=== PATIENT | female | born 1955 | race Caucasian/White ===

== ENCOUNTER → 2020-04-23 | Outpatient (CLI) | payer OTHER, SELFPAY ==
[2020-04-29 10:40] LABS: HPV APTIMA, High Risk Negative (Negative); HPV Reflexed? YES, CHARGE PATIENT
== END | disposition home or self-care (01) ==
LOC: LABSPEC 16:49
PROVIDERS: Visit Provider Student in an Organized Health Care Education/Training Program
DX: Z12.4 Encounter for screening for malignant neoplasm of cervix (principal)
CPT/HCPCS: 87624; 88175; G0145

== ENCOUNTER 2020-06-03 10:11 | Observation (INO) | payer SELFPAY ==
[2020-05-28 10:21] LABS: Hematocrit 44.8 % (37-47); Hemoglobin 14.3 g/dL (12.0-15.0); Mean Corp Hgb Conc 31.9 g/dL (32-36); Mean Corpuscular Hgb 28.4 pg (27.0-32.0); Mean Corpuscular Volume 89.1 fL (81-99); Platelet Count 198 K/mm3 (150-450); RBC Distribution Width CV 13.9 % (11.6-14.6); RBC Distribution Width SD 45.4 fl (35.1-43.9); Red Blood Count 5.03 M/mm3 (4.2-5.4); White Blood Count 5.2 K/mm3 (4.4-11.0)
--- NOTE | 2020-05-28 12:01 | EKG12_ITS ---
Test Reason : PREOP Blood Pressure : / mmHG Vent. Rate : 068 BPM Atrial Rate : 068 BPM P-R Int : 148 ms QRS Dur : 088 ms QT Int : 382 ms P-R-T Axes : 031 003 024 degrees QTc Int : 406 ms Normal sinus rhythm Normal ECG No previous ECGs available Confirmed by TRAVIS LÓPEZ, RAYMOND ([id number]), senior editor VITO HARDIN ([id number]) on 05/31/2020 11:28:46 AM Referred By: Marti Calderon Confirmed By:RAYMOND ROBLES MD
--- NOTE | 2020-06-01 10:11 | HP.PCM_ITS ---
History and Physical Date of Admission: 06/03/20 Yana Calderon, a 65 year old female 6 0 0 0 6, presents for TVH-BSO , a/p repair, SSLF, cystoscopy. and Possible tvt sling on June 03, 2020 at 7:30. 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 She was seeing Dr. Judi Cardozo at [facility] for a PAP. Unable to obtain good specimen. Referred here for uterine/bladder prolapse. Has urinary incontinence. . Last being a c-sec for breech. Allergy and medication lists added. Health history added. No health issues oth er than arthritis and a gastric ulcer that has been resolved. Mother had H/o breast cancer. Still living. Reports uterine/bladder prolapse which began 1 years ago. Yana claims it started while walking; Yana claims it started while sitting. It is relieved by NONE. Reports bladder leaking with cough or lifting. MEDICATIONS HISTORY: None ALLERGIES: No Known Allergies Medical History: pelvic organ prolapse, hx of gastric ulcer, arthritis FAMILY HISTORY: pancreatic and breast cancers, diabetes MENSTRUAL HISTORY: LMP Known?- Postmenopausal PAST PREGNANCIES: Total Pregnancies - 6; Full Term Pregnancies - 6; Premature - 0; Abortions, Induced - 0; Abortions, Spontaneous - 0; Ectopics - 0; Multiple Births - 0; Living Children - 6 SURGICAL HISTORY: 1. ventral hernia ; Natan Calderon - 2. inguinal hernia ; Natan Calderon - 3. 01/04/1990 Tubal, c-sec ; - breech SOCIAL HISTORY: Alcohol Use - denies drinking Smoking - Never Denies drug use FAMILY HISTORY: pancreatic and breast cancers, diabetes Review of Systems: GENERAL - Denies fever, or chills SKIN - Denies skin changes EYES - Denies visual changes EARS - Denies difficulty hearing NOSE - Denies nasal congestion or bleeding MOUTH - Denies sore throat or difficulty swallowing NECK - Denies pain or swelling RESPIRATORY - Denies shortness of breath or wheezing CARDIOVASCULAR - Denies palpitations or chest pain GASTROINTESTINAL - history of bleeding ulcer, resolved GENITOURINARY - Denies dysuria, frequency of urination, incontinence of urine MUSCULOSKELETAL - arthritis NEUROLOGICAL - Denies localized numbness or weakness PSYCHIATRIC - Denies depression or anxiety ENDOCRINE - Denies heat or cold intolerance, weight loss or gain HEMATO-IMMUNOLOGIC - Denies excesive bleeding with cuts PHYSICAL EXAM BP- 144/88 Sitting, Left arm, large cuff Temp- 98.1 Taken Orally Weight- 232.49165 lbs Height- 65.50 inch BMI:38.13 CONSTITUTIONAL - NAD, well nourished, and well developed SKIN - No rash, lesions, or ulcers HEENT - Normocephalic, PERRLA, EOMI LUNGS - normal respiratory rate and rhythm EXTREMITIES - No edema or calf tenderness. Negative Melody's sign, no erythema or edema. NEUROLOGICAL - Cranial nerves II-XII grossly intact PSYCHIATRIC - A and O to time, place, person, mood and affect External Genitial Vagina - non-tender without lesions Urethra/Urethral Meatus - non-tender Bladder - non-tender Vagina - No atrophy. Grade 3 anterior prolapse, gr 2 apical. Gr 1 posterior. Cervix - without cervical motion tenderness and has normal size and features without evident lesions Uterus - 5-6 cm in size, mobile and nontender Adnexa - clear without masses or tenderness ASSESSMENT/PLAN: 1. Uterovaginal Prolapse, Unspecified Pt experiences pelvic pressure and bulging especially with working all day. Reports some stress symptoms. NO abnormal bleeding. Discussed pessary vs surgical management. Patient is sexually active. Desires surgical management. Plan for: TVH-BSO, SSLF, a/p repair, TVT sling, cystoscopy. R/b/a discussed with patient Discussed left LE pain with ambulating - no signs of VTE on exam, likely msk strain. Also assessed by Dr. Underwood Anesthesia DIscussed Risks include, but are not limited to: risk of bleeding to the point of transfusion, infection, injury to surrounding tissue as bowel or bladder requiring prolonged Hewitt use, VTE, ICU admission. 2. Stress Incontinence Stress symptoms present, worse than urge. Discussed potential for worsening with relief of prolapse. Discussed TVT sling. Desires sling procedure today.
[2020-06-03] VITALS (26 sets, daily range): BP systolic 54–156; BP diastolic 45–99; PULSE 74–100; RESP 14–18; TEMP 36.2–37; O2SAT 88–99; BMI 38.5; BMI 38.9
[2020-06-03] MEDS: Lactated Ringers 1,000 ML 100 ML IV (07:04)
[2020-06-03] MEDS: Cefazolin 2 GM in 0.9% Normal Saline 100 ML IV (07:29)
--- NOTE | 2020-06-03 07:30 | HYST_PTH ---
PATIENT: ROMA BOSCH LOC: MS3 U#:[id number] AGE/SX: 65/F ROOM: MS324 RE06/03/[address]: Dr. Marti Bosch DO : 1955 BED: 1 DIS: 06/04/2020 SPEC #: [id number] RECD: 06/03/20 10:37 STATUS: AARON REQ #: [id number] AUGUSTO: 06/03/20 07:[address]: Marti Bosch DEPT: SURGICAL PATHOLOGY RECD BY: Carmela Brenner ENTERED: 06/03/20 11:41 SP TYPE: HYSTERECT OTHR DR: Dr. Guille Bro MD Tissues: Uterus, NOS Procedures: Surgery Specimen Level V HEADER OPERATION: Vaginal hysterectomy, A & P repair, cysto PRE-OP DIAGNOSIS: Uterovaginal prolapse; stress incontinence TISSUE SUBMITTED: Uterus, cervix, vaginal epithelia MICROSCOPIC DIAGNOSIS Uterus, cervix and vaginal epithelia, vaginal hysterectomy and A & P repair: Cervix - mild chronic cystic cervicitis with tunnel cluster formation. - Hyperkeratosis and parakeratosis. Endometrium - weakly proliferative endometrium with extensive cystic changes. Myometrium - intramural leiomyomas (0.8 and 1 cm in greatest dimension). - Vascular calcifications. Vaginal mucosal tissue - fragments of squamous mucosa with focal mild chronic inflammation. SJ:rafal 06/04/20 MICROSCOPIC DESCRIPTION Slides are reviewed. GROSS DESCRIPTION Received in fixative is one container labeled with the patient's name and designated uterus, cervix and vaginal epithelia. The specimen consists of a hysterectomy specimen consisting of a uterus with cervix and detached pieces of mucosal tissue. The uterus with cervix weighs 87 gm and measures 10 x 5.5 x 4 cm. The serosal surface is beckman, glistening. The ectocervical mucosa is unremarkable. The external os is slit-like in contour. The endocervical canal measures 3.5 cm in length and the endocervical mucosa is beckman, glistening and unremarkable. The triangular endometrial cavity measures 5 cm in length and up to 2.5 cm in width. The endometrium is beckman, glistening without any mass lesion and measures 0.1 cm in thickness. Sections of the uterine wall reveal two nodular masses measuring 0.8 and 1 cm in greatest dimension. Sections of these masses reveal beckman whorled cut surfaces without areas of hemorrhage, necrosis or cystic degeneration. The uninvolved uterine wall measures up to 2 cm in thickness. Also present in the container are five variable sized detached pieces of beckman mucosal tissue measuring in aggregate 5.5 x 4 x 0.4 cm. No mucosal lesion is identified. Dray Driver sections are submitted in eight cassettes as follows: 1 - anterior cervix, 2 - posterior cervix, 3 & 4 - anterior uterine wall, 5 & 6 - posterior uterine wall, 7 - nodular masses, 8 - detached mucosal tissue. / STEVE:rafal 06/03/20 TC:1 CPT: 33287
[2020-06-03] MEDS: Lidocaine 1% /Epi 1:100 (20ml) 20 ML Vial (07:48)
[2020-06-03] MEDS: Estrogens,Conj. 1 Tube 1 DOSE (07:48)
[2020-06-03] MEDS: Lactated Ringers 1,000 ML 125 ML IV ×4 (09:01→22:12)
--- NOTE | 2020-06-03 10:16 | OP.PCM_ITS ---
Report of Operation Date of Procedure: 06/03/20 Pre-Operative Diagnosis: Pelvic organ prolapse, stress incontinence Post-Operative Diagnosis: Pelvic organ prolapse, stress incontinence Surgery/Procedure Performed:: Total vaginal hysterectomy, anterior repair, posterior repair, sacrospinous ligament fixation, cystoscopy. Description of Surgical Findings:: . The 3 anterior prolapse, grade 2 apical prolapse, grade 2 posterior prolapse. Intact bladder epithelium with bilateral ureteral jets on cystoscopy. Normal- appearing external genitalia. audio visual coordinator: George Underwood Type of Anesthesia:: General Specimen's removed: Uterus, cervix. Skin epithelium. Estimated Blood Loss (mL): 300cc Fluids Replaced: 1800cc Description of Procedure: Patient was taken to the operating room and placed under general anesthesia. Patient was placed in the dorsal lithotomy position and prepped and draped in the usual sterile fashion. Hewitt catheter placed. Weighted speculum placed in posterior vagina and cervix grasped with Jerod clamp. Scalpel used to incise at the cervicovaginal junction circumferentially. Further dissection using Jackson scissors was completed. Blunt dissection was also completed. Posterior peritoneum was identified and incised with Jackson scissors. Posterior peritoneum and vaginal epithelium tagged with suture. Long weighted speculum placed through the peritoneal opening. Jeremiah clamps used to grasp the uterosacral ligaments on the left side. Ligament was clamped, cut, transfixation suture was placed. This was repeated on the right side of the uterus. Cardinal ligaments were then clamped cut and tied bilaterally. At this time reflection of bladder was dissected away from the cervix and anterior uterus using Metzenbaum scissors. Anterior peritoneum was then identified and incised with Metzenbaum scissors and extended. Kevon retractor placed to elevate bladder away from anterior uterus. Left uterine arteries were clamped cut and suture-ligated, right uterine arteries were clamped cut and suture-ligated in a similar fashion. Dissection was completed along the lateral sides of the uterus clamped, cutting, suture ligating at each level. The fundus was then noted and the left utero-ovarian ligament was clamped and cut. Free tie was placed, followed by transfixation suture. This was repeated on the right side of the uterus. Tubes and ovaries were unable to be removed as they were high in the pelvic sidewall. Uterus and cervix were removed. Posterior peritoneum was closed in a running stitch. Vaginal cuff was then closed with a running locking stitch. Anterior repair was then completed. Allis clamp were placed above the vaginal cuff and superiorly. Injection was instilled. Incision was made with scalpel between Allis clamps and Metzenbaum scissors were utilized to dissect off the vaginal epithelium. On the left side inferiorly bladder serosa was noted to be exposed. Vaginal fascia was closed in a running fashion over this exposure area. Interrupted stitches were then placed along the defect closing the defect, no stitch placed inferiorly. Excess vaginal epithelium removed with spine scissors. Vagina closed in a running locking stitch. At this time Dr. Underwood perform sacrospinous ligament fixation. Posterior vagina grasped at the hymenal ring with Allis clamps triangular incision made in the perineum. Vaginal epithelium dissected away using Metzenbaum scissors and incised medially. Dissection using Metzenbaum scissors and blunt dissection to peel the vaginal epithelium away from the posterior defect was completed. Right sacrospinous ligament was identified by palpation. Prolene placed through sacrospinous ligament medial to the ischial spine with second suture placed medial to this. He then used a free needle to take Prolene through the vaginal epithelium and back down to attach the ligament to the vaginal apex. Suture was used in interrupted stitches to close the posterior defect these were tied down after the apex of the posterior incision was tagged. Sacrospinous suture tied down as well bring the vaginal apex superiorly. Excess vaginal epithelium removed. Bulbospongiosus muscles identified through dissection with Metzenbaum scissors, got grasped with Allis clamps. Bulbospongiosus muscles reapproximated with [id number] suture. Vaginal epithelium reapproximated running locking stitch. To the level of the hymenal ring. Second stitch was then started at the hymenal ring reapproximating superficial transverse perineal muscles, perineal mucosa approximated with subcuticular stitches. Cystoscopy was then completed with intact bladder dome and bilateral ureteral jets noted. Incisions noted to be hemostatic. Vaginal packing with Premarin cream placed. At the end of the procedure all needle, lap, sponge counts were correct x3. UOP 800cc
[2020-06-03] MEDS: Ketorolac 15 MG/ML Vial IV ×2 (12:37→22:12)
--- NOTE | 2020-06-03 14:20 | NURSING ---
called into room by primary RN. notable amt of drainage and clots underneith pt. primary rn on phone w/ MD. pt cleansed up w/ table cut off saw operator and primary RN. packing noted to be in place. moderate amt active drainage noted.
--- NOTE | 2020-06-03 14:27 | NURSING ---
cortex photo of clots sent to dr. westfall. aware pt denies all symptoms at this time. tele placed on patient by primary RN. monitoring bp
--- NOTE | 2020-06-03 14:51 | NURSING ---
pt dipping to 90% on RA, 2lnc placed. cspo2 maintained
--- NOTE | 2020-06-03 14:55 | NURSING ---
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
--- NOTE | 2020-06-03 15:04 | NURSING ---
noted hr 90's tachy into 110's at time. aware of new order for labs. lab notified.
--- NOTE | 2020-06-03 15:16 | NURSING ---
called placed to AC charge nurse Leah about pt returning to OR. aware she is informing surgery Chg nurse
--- NOTE | 2020-06-03 15:20 | PCM.PN.BLA ---
Progress Note Called by RN for bleeding. Pt seen and examined. She is resting in bed, feeling well. Maybe feels a little different after being on oxygen. Vaginal packing removed, large 100 cc clot at introitus noted. No defects in suture line noted on manual exam. Unable to do complete exam due to patient positioning and lighting. Active bleeding noted, however, likely coming from vaginal apex. Discussed exam under anesthesia in OR with possible repair of vaginal cuff vs packing with expectant management. Patient elects for EUA in OR. R/B/A discussed including, but not limited to: bleeding to the point of transfusion, infection, injury to surrounding tissue. Pt aware. Consents. H/H drawn now. Attempt to contact OR now, class B. STROKE Vital Signs/Narrative: Vital Signs Temp Pulse Resp BP Pulse Ox 06/03/20 14:59 98.4 F 88 16 105/67 97 06/03/20 14:46 98.6 F 83 16 112/72 91 06/03/20 14:28 98.6 F 84 16 116/75 98 06/03/20 12:27 97.5 F L 77 18 132/78 H 98 06/03/20 11:53 97.1 F L 87 16 115/79 93 06/03/20 11:45 76 16 118/78 92 06/03/20 11:30 76 16 120/84 H 92
[2020-06-03 15:30] LABS: Hemoglobin 13.4 g/dL (12.0-15.0)
[2020-06-03] MEDS: Lidocaine 1% (30 ml sdv) 30 ML Vial (16:23)
--- NOTE | 2020-06-03 16:49 | PCM.OPRPT ---
Report of Operation Date of Procedure: 06/03/20 Pre-Operative Diagnosis: Postoperative vaginal bleeding Post-Operative Diagnosis: Postoperative vaginal bleeding Surgery/Procedure Performed:: Exam under anesthesia, posterior vaginal incision reinforcement Description of Surgical Findings:: Small arterial bleed in the posterior repair vaginal incision, small amount of oozing posterior repair suture line Type of Anesthesia:: MAC Estimated Blood Loss (mL): 20 Description of Procedure: 65-year-old female who underwent total vaginal hysterectomy, anterior and posterior repair, sacrospinous ligament fixation, cystoscopy earlier today. This afternoon it was noted that patient was having increased amount of bleeding with blood clots. Patient was examined with noted active bleeding, unable to fully assess due to patient positioning and lighting in the patient room. Due to large amount of clots and bleeding and active oozing, decision for exam under anesthesia and repair of vaginal epithelium was made. All risks, benefits, alternatives discussed with the patient. Risks include but are not limited to: Risk of bleeding to the point of transfusion, infection, injury to surrounding tissue, VTE, ICU admission patient aware and consented. Patient was taken to the operating room placed in the dorsal lithotomy position. Patient prepped and draped in the usual sterile fashion. Retractor placed in the anterior vagina and visualization of the posterior suture line was completed. Small arterial bleeding at the posterior suture line was noted. 2 [id number] stitches were placed in this region with subsequent hemostasis. Small amount of oozing in the posterior repair suture line was noted this was reinforced with running locking stitches. This was hemostatic after suture placement. Inspection of the vaginal cuff and apex was completed with no noted bleeding in this region. Anterior incision line was also hemostatic. Posterior incision line was examined again and was noted to be hemostatic. Lidocaine injected into the perineal area for postoperative pain control. 2 packs of iodoform gauze were placed into the vagina tied together with the knot. Plan for removal in the morning. Maintain Hewitt. At the end of the procedure all needle, lap, sponge counts were correct x3.
[2020-06-04 00:21] VITALS: BP 102/58; PULSE 85; RESP 16; TEMP 37.2; O2SAT 93
[2020-06-04 04:16] VITALS: BP 102/60; PULSE 80; RESP 16; TEMP 37.2; O2SAT 93
[2020-06-04] MEDS: 0.9% Saline Lock 10 ML Syringe IV (05:46)
[2020-06-04 06:15] LABS: Hematocrit 30.2 % (37-47); Hemoglobin 9.6 g/dL (12.0-15.0); Mean Corp Hgb Conc 31.8 g/dL (32-36); Mean Corpuscular Hgb 28.7 pg (27.0-32.0); Mean Corpuscular Volume 90.1 fL (81-99); Mean Platelet Vol. 10.9 fl (6.2-12.0); Platelet Count 190 K/mm3 (150-450); RBC Distribution Width CV 14.4 % (11.6-14.6); RBC Distribution Width SD 47.3 fl (35.1-43.9); Red Blood Count 3.35 M/mm3 (4.2-5.4); White Blood Count 8.6 K/mm3 (4.4-11.0)
[2020-06-04 07:11] VITALS: O2SAT 93
[2020-06-04] MEDS: Multivitamins,Ther W-Minerals Tablet 1 TABLET PO (08:33)
[2020-06-04] MEDS: Enoxaparin 40 MG/0.4 ML Syringe SC (08:33)
--- NOTE | 2020-06-04 08:34 | PCM.PN.OB ---
Subjective: POD#1 Pain controlled. Tolerating PO. No dizziness. - Physical Exam Vitals/I&O's: Vital Signs Temp Pulse Resp BP Pulse Ox 98.9 F 80 16 102/60 93 06/04/20 04:16 06/04/20 04:16 06/04/20 04:16 06/04/20 04:16 06/04/20 07:11 Oxygen Flow Rate (L/min) 2 Oxygen Delivery Method Room Air Weight: 106.141 kg Body Mass Index (BMI) 38.9 Intake and Output for Last 24 Hours 06/02/20 06/03/20 06/04/20 23:59 23:59 23:59 Intake Total 3216.25 / 3216.25 1800 / 1800 Output Total 1550 / 1550 1000 / 1000 Balance 1666.25 / 1666.25 800 / 800 General: Alert, Oriented x3, No apparent distress HEENT: Atraumatic, Normocephalic Neck: Supple Lungs: Clear to auscultation Cardiovascular: Regular rate, Regular Rhythm Abdomen: Bowel Sounds Present, Hypoactive Bowel Sounds Extremities: No edema Neurological: Cranial nerves II-XII grossly intact Psych/Mental Status: Normal Affect, Appropriate Laboratory Results 06/03/20 15:23: Hgb 13.4 06/04/20 06:08: WBC 8.6, RBC 3.35 L, Hgb 9.6 L, Hct 30.2 L, MCV 90.1, MCH 28.7, MCHC 31.8 L, RDW Std Deviation 47.3 H, RDW Coeff of Shavon 14.4, Plt Count 190, MPV 10.9 Current Medications Acetaminophen (Acetaminophen 500 Mg Tablet) 1,000 mg PO Q8H PRN PRN PRN Reason: Pain Score 1-3/10 or Fever Enoxaparin Sodium (Enoxaparin 40 Mg/0.4 Ml Syringe) 40 mg SC DAILY [facility] Last Admin: 06/04/20 08:33 Dose: 40 mg Documented by: Ketorolac Tromethamine (Ketorolac 10 Mg Tablet) 10 mg PO Q6 [facility] Stop: 06/09/20 08:32 Multivitamins/Minerals (Multivitamins,Ther W-Minerals Tablet) 1 tablet PO DAILY@0800 [facility] Last Admin: 06/04/20 08:33 Dose: 1 tablet Documented by: Ondansetron HCl (Ondansetron 4 Mg/2 Ml Vial) 4 mg IV Q4H PRN PRN PRN Reason: NAUSEA Oxycodone HCl (Oxycodone 5 Mg Tablet) 5 - 10 mg PO Q4H PRN PRN PRN Reason: Pain Score 4-10 Sodium Chloride (0.9% Saline Lock 10 Ml Syringe) 10 - 40 ml IV UD PRN PRN Reason: SALINE FLUSH Last Admin: 06/04/20 05:46 Dose: 10 ml Documented by: Medical Necessity - Tobacco Use Smoking Status: Never smoker Assessment/Plan 65 yo POD#1 s/p TVH, anterior/posterior repair, sacrospinous ligament fixation, cystoscopy followed by EUA reinforcement of suture line for post operative bleeding. Complicated by acute blood loss secondary to surgery. Stable 1. Post operative -Acute blood loss secondary to surgery. Iron supplement on discharge. Bleeding post operatively has resolved at this time. -Vaginal packing removed this morning with scant dried blood on it, no current active vaginal bleeding. Hewitt removed as well -Tolerating PO, pain controlled -Plan for observation until this afternoon for bleeding. If patient's bleeding is controlled and she can void, ambulate. Will discharge home this afternoon. Diet: Regular IVFs: HLIV DVT PPx: SCDs, ambulate, lovenox Dispo: likely home this afternoon
[2020-06-04 08:35] VITALS: BP 94/57; PULSE 69; RESP 18; TEMP 37; O2SAT 94
--- NOTE | 2020-06-04 08:38 | DCINST_ITS ---
Discharge Diet: No Restrictions Discharge Activity: Return to Normal Activity, May not drive while taking narcotic pain medications. May resume sexual activity in: 6 weeks Weight Bearing Status: Weight bearing as tolerated Call your doctor if your incision/area has: Continuous Slow Oozing, Sudden Increased Bleeding, Increased Pain/ Swelling Call your doctor if you observe: Fever of 101 or Higher, Inability to have a bowel movement, Using more than one pad per hour, Shortness of breath Cleanse incision/area with: Soap & Water Allergies/Adverse Reactions: Allergies No Known Allergies Allergy (Verified 05/24/20 11:21) Medications to take at Discharge Ascorbic Acid/Elderberry Fruit [Elderberry-Vit C 50-100 mg Chw] 1 ea PO DAILY 05/24/20 Multivit with Calcium,Iron,Min [One Daily Women's] 1 ea PO DAILY 05/24/20 Orders to be completed after discharge: 12 Lead EKG [[facility]] Time Frame: 05/28/20, Location: None Selected Primary Care Physician: Guille Bro MD [Primary Care Provider] - Test Results: Test results from this visit will be discussed in further detail at your follow- up appointment, if applicable. Please Follow Up With: Marti Calderon DO When: 2 weeks Proposed Discharge Date: 06/04/20
== END 2020-06-04 14:09 | disposition home or self-care (01) ==
LOC: SDC 11:25 → MS3 11:25
PROVIDERS: Admitting Provider Student in an Organized Health Care Education/Training Program; PCP Family Medicine; Referring Provider Student in an Organized Health Care Education/Training Program; Visit Provider Student in an Organized Health Care Education/Training Program
PROC: (CPT 58260; principal; 2020-06-03 07:10)
DX: N81.4 Uterovaginal prolapse, unspecified (principal); N39.3 Stress incontinence (female) (male); M19.90 Unspecified osteoarthritis, unspecified site; D25.1 Intramural leiomyoma of uterus; N99.820 Postprocedural hemorrhage of a genitourinary system organ or structure following a genitourinary system procedure; Z20.828 Contact with and (suspected) exposure to other viral communicable diseases; N72 Inflammatory disease of cervix uteri; Z87.11 Personal history of peptic ulcer disease
CPT/HCPCS: 00940; 57200; 57260; 57282; 58260; 36415; 85018; 85027; 86850; 86900; 86901; 87426; 88307; 93005; 96361; 96372; 96374; 96376; 99218; 99251; C9803; J7120; A4216; G0378; G0379; G0463; J2405; Q9968

== ENCOUNTER → 2020-10-29 | Outpatient (CLI) | payer SELFPAY ==
[2020-06-03 15:21] VITALS: BMI 38.9
== END | disposition home or self-care (01) ==
LOC: LABSPEC 17:01
PROVIDERS: PCP Family Medicine; Visit Provider Student in an Organized Health Care Education/Training Program
DX: N39.41 Urge incontinence (principal)
CPT/HCPCS: 87086; 87088

== ENCOUNTER → 2023-03-29 | Outpatient (CLI) | payer MEDICARE, SELFPAY ==
[2023-03-29 10:42] LABS: EXAGEN MAILED SPECIMEN
[2023-03-29 12:01] LABS: Color, Urine Yellow (Yellow); Glucose, Dipstick Normal (Normal); Ketone-Dipstick Negative (Negative); Leukocyte Esterase-Dipstick Negative /ul (Negative); Nitrite-Dipstick Negative (Negative); Occult Blood-Urine Negative /ul (Negative); Protein-Dipstick Negative (Negative); Urine Bilirubin Dipstick Negative (Negative); Urine Clarity Clear (Clear); Urine Urobilinogen Normal (Normal)
[2023-03-29 12:08] LABS: Protein:Creat Ratio 138 mg/g CRE (0-200)
[2023-03-29 12:09] LABS: Absolute Lymphocyte Count 2.21 X10^3/uL (0.83-4.51); Absolute Neutrophil Count 2.8 X10^3/uL (2.0-7.7); Basophil# 0.02 X10^3/uL; Basophil% 0.4 % (0-1); Eosinophil# 0.06 X10^3/uL; Eosinophils% 1.1 % (0-5); Hematocrit 43.4 % (37-47); Lymphocyte # 2.21 X10^3/ul (0.83-4.51); Mean Corp Hgb Conc 32.3 g/dL (32-36); Mean Corpuscular Hgb 28.6 pg (27.0-32.0); Mean Corpuscular Volume 88.8 fL (81-99); Mean Platelet Vol. 11.2 fl (6.2-12.0); Monocyte# 0.52 X10^3/uL; Monocyte% 9.2 % (0-10); NRBC Flagged by Analyzer 0 % (0-5); Neutrophil # 2.84 X10^3/uL (2.7-7.7); Neutrophil % 49.9 % (47-70); Platelet Count 263 K/mm3 (150-450); RBC Distribution Width CV 13.4 % (11.6-14.6); RBC Distribution Width SD 43.6 fl (35.1-43.9); Red Blood Count 4.89 M/mm3 (4.2-5.4); White Blood Count 5.7 K/mm3 (4.4-11.0)
[2023-03-29 12:40] LABS: AST(SGOT) 25 U/L (15-37); Alanine Aminotransfer ALT/SGPT 55 U/L (13-56); Albumin, Serum 3.9 g/dL (3.2-5.0); Alkaline Phosphatase 80 U/L (45-117); Anion Gap 4 (5-15); BUN 14 mg/dL (7-18); BUN/Creat Ratio 20.4 RATIO (10-20); Calcium,Total 9.8 mg/dL (8.5-10.1); Chloride 109 mmol/L (98-107); Creatinine, Serum 0.69 mg/dL (0.55-1.02); EST Glomerular Filtration Rate 90 mL/min (>60); Est Glom Filt Rate - Afr Amer 109 mL/min (>60); Globulin 4.1 g/dL (2.2-4.2); Glucose 102 mg/dL (74-106); Sodium Level 140 mmol/L (136-145)
[2023-03-29 19:19] LABS: Hepatitis B Surface Antibody Non-Reactive; Hepatitis B Surface Antigen Non-Reactive (Nonreactive); Hepatitis C Antibody Non-Reactive (Nonreactive)
== END | disposition home or self-care (01) ==
PROVIDERS: PCP Family Medicine; Referring Provider Internal Medicine Rheumatology; Visit Provider Internal Medicine Rheumatology
DX: M06.4 Inflammatory polyarthropathy (principal); R76.8 Other specified abnormal immunological findings in serum; M17.0 Bilateral primary osteoarthritis of knee
CPT/HCPCS: 36415; 80053; 81002; 82570; 84156; 85025; 86706; 86803; 87340

== ENCOUNTER → 2023-06-07 | Outpatient (CLI) | payer MEDICARE, SELFPAY ==
[2023-06-07 10:16] LABS: Absolute Lymphocyte Count 2.63 X10^3/uL (0.83-4.51); Absolute Neutrophil Count 2.9 X10^3/uL (2.0-7.7); Basophil# 0.01 X10^3/uL; Basophil% 0.2 % (0-1); Eosinophil# 0.09 X10^3/uL; Eosinophils% 1.5 % (0-5); Hematocrit 45.7 % (37-47); Hemoglobin 14.6 g/dL (12.0-15.0); Lymphocyte # 2.63 X10^3/ul (0.83-4.51); Lymphocyte % 42.8 % (19-41); Mean Corp Hgb Conc 31.9 g/dL (32-36); Mean Corpuscular Hgb 28.4 pg (27.0-32.0); Mean Corpuscular Volume 88.9 fL (81-99); Mean Platelet Vol. 11.5 fl (6.2-12.0); Monocyte# 0.48 X10^3/uL; Monocyte% 7.8 % (0-10); NRBC Flagged by Analyzer 0 % (0-5); Neutrophil # 2.92 X10^3/uL (2.7-7.7); Neutrophil % 47.4 % (47-70); Platelet Count 273 K/mm3 (150-450); RBC Distribution Width CV 13.8 % (11.6-14.6); RBC Distribution Width SD 44.9 fl (35.1-43.9); Red Blood Count 5.14 M/mm3 (4.2-5.4); White Blood Count 6.2 K/mm3 (4.4-11.0)
[2023-06-07 10:59] LABS: AST(SGOT) 14 U/L (15-37); Alanine Aminotransfer ALT/SGPT 28 U/L (13-56); Albumin, Serum 3.9 g/dL (3.2-5.0); Alkaline Phosphatase 86 U/L (45-117); Anion Gap 5 (5-15); BUN 14 mg/dL (7-18); Calcium,Total 10.1 mg/dL (8.5-10.1); Chloride 109 mmol/L (98-107); EST Glomerular Filtration Rate 89 mL/min (>60); Est Glom Filt Rate - Afr Amer 107 mL/min (>60); Globulin 3.9 g/dL (2.2-4.2); Glucose 94 mg/dL (74-106); Potassium 4.3 mmol/L (3.5-5.1); Protein, Total 7.8 g/dL (6.4-8.2); Sodium Level 141 mmol/L (136-145)
== END | disposition home or self-care (01) ==
PROVIDERS: Referring Provider Internal Medicine Rheumatology; Visit Provider Internal Medicine Rheumatology
DX: M06.4 Inflammatory polyarthropathy (principal); R76.8 Other specified abnormal immunological findings in serum; Z79.899 Other long term (current) drug therapy
CPT/HCPCS: 36415; 80053; 85025

== ENCOUNTER → 2023-08-23 | Outpatient (CLI) | payer MEDICARE, SELFPAY ==
--- OUTSIDE RECORDS SUMMARY | 2023-08-23 08:30 | XMS RPT_ITS | CCD ---
Author Name Unknown Address [address] [place] [address] Organization [facility] Care Team Providers Care Special Education Aide Name Role Phone GUILLE BRO Consulting Unavailable BCCP Attending Unavailable [facility] Primary Care Unavailable [facility]P Admitting Unavailable PROVIDER, UNKNOWN Consulting Unavailable PROVIDER, UNKNOWN Consulting Unavailable PROVIDER, UNKNOWN Consulting Unavailable Isidoro RITCHIE, Melly Martinez Unavailable [phone] Rheumatolgy Provider Unavailable Unavailable Teresa Aviles LPN Unavailable Guille Bro MD Unavailable Kya Walker MA Unavailable Unavailable Kelsey Hurst Unavailable Unavailable Renay Masterson MA Unavailable Unavailable Kerri CORTEZ, Britni Damon Unavailable Unavaila Keturah Uribe LPN Unavailable Unavailable Unavailable Unavailable Medications Current Medications Medication Drug Class(es) Dates Sig (Normalized) Sig (Original) levothyroxine sodium 0.125 mg oral capsule (1 source) l-Thyroxine Start: 05-24-2023 levothyroxine 125 mcg capsule ; 1 (one) capsule daily for 0 days Quantity: 90 {Capsule} Refills: 0 Ordered: 24-May-2023 ERMA Chaudhry Start: 24-May-2023 Comments: Mail order. Completed/Discontinued Medications Medication Drug Class(es) Dates Sig (Normalized) Sig (Original) atorvastatin 20 mg oral tablet (1 source) HMG-CoA Reductase Inhibitor Start: 04-30-2022 End: 2023 atorvastatin 20 mg tablet ; 1 (one) Tablet daily for 0 days Quantity: 30 {Tablet} Refills: 0 Ordered: 05-Feb-2023 JOY Masterson Start: 30-Apr-2022 End: 05-Feb-2023 Status: Inactive Comments: For delivery Problems Active Problems Problem Classification Problem Date Documented Da te Episodic/Chronic Disorders of lipid metabolism (2 sources) Hyperlipidemia; Translations: [Hyperlipidemia, unspecified] 2023 Chronic Genitourinary symptoms and ill-defined conditions (2 sources) Urinary incontinence; Translations: [Unspecified urinary incontinence] 2023 Chronic Immunizations and screening for infectious disease (2 sources) Anti-nuclear factor positive; Translations: [Other specified abnormal immunological findings in serum] 02-09-2023 Episodic Influenza (2 sources) Influenza; Translations: [Influenza due to unidentified influenza virus with other respiratory manifestations] 04-30-2022 Episodic Other circulatory disease (3 sources) Elevated blood pressure; Translations: [Elevated blood-pressure reading, without diagnosis of hypertension] 2023 Episodic Other connective tissue disease (2 sources) Muscle pain; Translations: [Myalgia, unspecified site] 2023 Episodic Other injuries and conditions due to external causes (2 sources) Knee, leg, ankle, and foot injury 2023 Episodic Other non-traumatic joint disorders (2 sources) Ankle edema; Translations: [Effusion, right ankle] 2023 Episodic Other non-traumatic joint disorders (2 sources) Hip pain; Translations: [Pain in left hip] 2023 Episodic Other non-traumatic joint disorders (2 sources) Multiple joint pain; Translations: [Pain in unspecified joint] 2023 Episodic Other screening for suspected conditions (not mental disorders or infectious disease) (8 sources) Patient encounter status; Translations: [Encounter for screening for cardiovascular disorders] 2023 Episodic Thyroid disorders (7 sources) Hypothyroidism; Translations: [Hypothyroidism, unspecified] 08-19-2023 Chronic Unclassified (1 source) deliveries 2023 Past or Other Problems Problem Classification Problem Date Documented Da te Episodic/Chronic Unclassified (1 source) Leg pain - The leg pain began gradually over time and has been occurring for months. The symptoms have been occurring in an increasing pattern. The symptoms are described as a tightness and ache and are moderate in severity. The symptoms occur during the day. There is involvement of the lower extremities (both), left calf, right calf, left thigh and right thigh. There are no precipitating factors. Aggravating factors include sitting and walking. Relief is provided by cold compress and NSAIDs (Ibuprofen). The symptoms have been associated with muscle weakness and calf swelling, while the symptoms have not been associated with blurred vision, chest pain, dizziness, diaphoresis, dyspnea, fatigue, focal neurologic deficits, paresthesias, numbness and tingling in fingers, numbness and tingling in toes, visual disturbances, cool extremity, cough, fever or chills. There is a family history of diabetes and hypertension. Note for Leg pain : Patient states that my whole body hurts , but that the worst of her pain is in her legs. She denies any fatigue, shortness of breath, or chest pain. She does note swelling in both her legs for the last 2-3 weeks. 2023 Unclassified (1 source) MCR Well Adult - In general the patient feels well with minor complaints (Has been having left-sided hip pain for the past 2 weeks. She has been seeing the chiropractor for this and feels it is improving at this time.), has good energy level and is sleeping well. The patient has a balanced diet and takes supplemental vitamins. The patient exercises daily (morning walks, unable to right now d/t hip pain) and sleeps 6 hours per night. The patient denies having trouble with bathing, dressing/grooming, toileting, preparing meals and ambulating. The patient denies having trouble with grocery shopping, driving, use of telephone, housework, laundry, preparing/taking medications and finances. The patient performs monthly self breast exam. 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 Note for MCR Well Adult : Patient reports that she is feeling well overall.Has labs to be reviewed today.Patient also reports that she has issues with urinary incontinence. She is supposed to see Dr. Marti Bosch for this in May, but has not yet heard from their office. She does not feel the medication they gave her is helping. 04-30-2022 Unclassified (1 source) Cold Symptoms - Symptoms include nasal congestion, ear fullness, sore throat, productive cough (chest discomfort and s.o.b. at times), fever, chills, general malaise, headache and facial pain, but do not include sneezing or runny nose. The onset was sudden 3 day(s) ago. The symptoms occur constantly. The patient describes this as moderate in severity and worsening. Current treatment includes non-prescription cold medication, cough suppressants, acetaminophen and NSAIDs. Risk factors do not include smoking. The patient has been exposed to an individual with similar symptoms. Note for Upper respiratory infection : Pt c/o dizziness on and off. reviewed by [facility] 09-01-2014 Unclassified (1 source) Ankle Injury - Pt here this morning because she was walking on sidewalk and side stepped and fell and injured right ankle. Was able to get up and walk home but painful to walk on it. Ankle is swollen on lateral aspect but complains of pain being mostly in foot. Used ice to area and used some Alleve. Here for evlauation. reviewed by [facility] 11-04-2012 Results Test Name Value Interpretation Reference Range Facil ity Vital Signs Date Time Vital Sign Value Performing Clinician Faci lity 2023 08:08-0400 Diastolic blood pressure 100 mm[Hg] Renay Masterson MA [facility] [employer] [facility]. Encounters Encounter Date Encounter Type Care Provider Facility Start: 08-19-2023 End: 08-20-2023 Orders Melly Chaudhry PA-C Work Phone: [facility]. Start: 05-24-2023 End: 05-24-2023 Medication Melly Cahudhry PA-C Work Phone: [facility]. Start: 05-21-2023 End: 05-21-2023 Orders Melly Chaudhry PA-C Work Phone: [facility]. Start: 02-17-2023 End: 02-17-2023 Medication Melly Chaudhry PA-C Work Phone: [facility]. Start: 02-15-2023 End: 02-15-2023 Orders Melly Chaudhry PA-C Work Phone: [facility]. Start: 02-09-2023 End: 02-09-2023 Orders Melly Chaudhry PA-C Work Phone: [facility]. Start: 2023 End: 2023 Office outpatient visit 25 minutes Melly Chaudhry PA-C Work Phone: [facility]. Start: 11-11-2022 End: 11-11-2022 [facility] Start: 09-25-2022 End: 09-25-2022 Orders Melly Chaudhry PA-C Work Phone: [facility]. Start: 05-05-2022 End: 05-05-2022 Historical Summary Melly Chaudhry PA-C Work Phone: [facility]. Start: 04-30-2022 End: 04-30-2022 Patient encounter procedure Melly Chaudhry PA-C Work Phone: [facility] Start: 04-30-2022 End: 04-30-2022 Physical examination Melly Chaudhry PA-C Work Phone: [facility]; [facility]. Start: 04-23-2022 End: 04-23-2022 Orders Melly Chaudhry PA-C Work Phone: [facility]. Start: 04-10-2022 End: 04-10-2022 Orders Melly Chaudhry PA-C Work Phone: [facility]. Start: 09-01-2014 End: 09-01-2014 Office outpatient visit 15 minutes Melly Chaudhry PA-C Work Phone: [facility] Start: 11-04-2012 End: 11-04-2012 Patient encounter procedure Melly Chaudhry PA-C Work Phone: [facility] Physical examination Renay Masterson MA [facility] Procedures Date Procedure Procedure Detail Performing Clinician Start: 09-25-2022 End: 11-14-2022 Screening mammography bi 2-view breast inc cad Teresa Aviles LPN Work Phone: Start: 04-30-2022 End: 04-30-2022 Adv care pln/ no alt dcsn mkr docd or refusal Melly Chaudhry PA-C Work Phone: Start: 04-30-2022 End: 04-30-2022 Depression screening Melly Chaudhry PA-C Work Phone: Start: 04-30-2022 End: 04-30-2022 Falls risk assessment documented Melly Chaudhry PA-C Work Phone: Start: 04-30-2022 End: 04-30-2022 Initial preventive exam Melly Chaudhry P A-C Work Phone: Start: 04-30-2022 End: 04-30-2022 Pt falls assess docd w/o fall/injury past year Melly J Chaudhry PA-C Work Phone: Start: 04-30-2022 End: 04-30-2022 Scr dep neg, no plan reqd Melly Martinez Chaudhry PA-C Work Phone: Start: 04-30-2022 End: 04-30-2022 Screening test visual acuity quantitative bilat Melly Martinez Chaudhry PA-C Work Phone: Start: 07-05-2019 End: 07-05-2019 Partial hysterectomy Renay Masterson MA Plan of Treatment Date Care Activity Detail Author Start: 08-19-2023 Assay of thyroid stimulating hormone tsh TSH (THYROID STIMULATING HORMONE) (91287) Start: 19-Aug-2023 8:13 Request [facility] Payers Date Payer Category Payer Unknown [id number] Unknown [id number] Unknown [facility] Social History Date Type Detail Facility Tobacco Use: Tobacco Use: ; Never smoker. [facility] Work Phone: Never smoked tobacco [facility].; [facility], [facility]. Work Phone: Summary Purpose Family History No Family History Records Found Father Status:Active Comments:Heart D isease, HTN Advance Directives No Advanced Directives Records FoundNo Advanced Directives Records FoundNo Advanced Directives Records Found Additional Source Comments INFORMATION SOURCE (unrecogn ized section and content) DATE CREATED AUTHOR AUTHOR'S ORGANIZ ATION 11/12/2022 [facility] [place] DATE CREATED AUTHOR AUTHOR'S ORGANIZ ATION 08/22/2023 [facility] FOR RECORDS PERTAINING TO PATIENTS WHO ARE OR HAVE BEEN ENROLLED IN A CHEMICAL DEPENDENCY/SUBSTANCEABUSE PROGRAM, SOME INFORMATION MAY BE OMITTED. This clinical summary was aggregated from multiple sources. Caution should be exercised in using it in the provision of clinical care. This summary normalizes information from multiple sources, and as a consequence, information in this document may materially change the coding, format and clinical context of patient data. In addition, data may be omitted in some cases. CLINICAL DECISIONS SHOULD BE BASED ON THE PRIMARY CLINICAL RECORDS. [facility] provides no warranty or guarantee of the accuracy or completeness of information in this document.
[2023-08-23 08:50] LABS: Absolute Lymphocyte Count 2.03 X10^3/uL (0.83-4.51); Absolute Neutrophil Count 3.9 X10^3/uL (2.0-7.7); Basophil# 0.02 X10^3/uL; Basophil% 0.3 % (0-1); Eosinophil# 0.08 X10^3/uL; Eosinophils% 1.2 % (0-5); Hematocrit 42.3 % (37-47); Hemoglobin 13.8 g/dL (12.0-15.0); Lymphocyte # 2.03 X10^3/ul (0.83-4.51); Lymphocyte % 31.3 % (19-41); Mean Corp Hgb Conc 32.6 g/dL (32-36); Mean Corpuscular Hgb 29.7 pg (27.0-32.0); Mean Platelet Vol. 10.9 fl (6.2-12.0); Monocyte# 0.45 X10^3/uL; Monocyte% 6.9 % (0-10); NRBC Flagged by Analyzer 0 % (0-5); Neutrophil # 3.88 X10^3/uL (2.7-7.7); Neutrophil % 59.8 % (47-70); Platelet Count 263 K/mm3 (150-450); RBC Distribution Width CV 14.6 % (11.6-14.6); RBC Distribution Width SD 47.4 fl (35.1-43.9); Red Blood Count 4.65 M/mm3 (4.2-5.4); White Blood Count 6.5 K/mm3 (4.4-11.0)
[2023-08-23 09:28] LABS: ALB/GLOB Ratio 1.1 RATIO (0.9-2.4); AST(SGOT) 20 U/L (15-37); Alanine Aminotransfer ALT/SGPT 32 U/L (13-56); Alkaline Phosphatase 94 U/L (45-117); Anion Gap 4 (5-15); BUN 13 mg/dL (7-18); BUN/Creat Ratio 18.8 RATIO (10-20); Calcium,Total 9.7 mg/dL (8.5-10.1); Chloride 111 mmol/L (98-107); Creatinine, Serum 0.69 mg/dL (0.55-1.02); EST Glomerular Filtration Rate 90 mL/min (>60); Est Glom Filt Rate - Afr Amer 109 mL/min (>60); Globulin 3.8 g/dL (2.2-4.2); Glucose 109 mg/dL (74-106); Potassium 3.9 mmol/L (3.5-5.1); Protein, Total 7.8 g/dL (6.4-8.2); Sodium Level 140 mmol/L (136-145)
== END | disposition home or self-care (01) ==
PROVIDERS: Referring Provider Internal Medicine Rheumatology; Visit Provider Internal Medicine Rheumatology
DX: M06.4 Inflammatory polyarthropathy (principal); M17.0 Bilateral primary osteoarthritis of knee; R76.8 Other specified abnormal immunological findings in serum; Z79.899 Other long term (current) drug therapy
CPT/HCPCS: 36415; 80053; 85025

== ENCOUNTER → 2023-10-18 | Outpatient (CLI) | payer MEDICARE, SELFPAY ==
[2023-10-18 08:55] LABS: Absolute Lymphocyte Count 2.21 X10^3/uL (0.83-4.51); Absolute Neutrophil Count 3.5 X10^3/uL (2.0-7.7); Basophil# 0.03 X10^3/uL; Basophil% 0.5 % (0-1); Eosinophil# 0.13 X10^3/uL; Hematocrit 44.5 % (37-47); Hemoglobin 14.7 g/dL (12.0-15.0); Lymphocyte # 2.21 X10^3/ul (0.83-4.51); Lymphocyte % 34.7 % (19-41); Mean Corpuscular Hgb 30.9 pg (27.0-32.0); Mean Corpuscular Volume 93.5 fL (81-99); Mean Platelet Vol. 10.4 fl (6.2-12.0); Monocyte# 0.42 X10^3/uL; Monocyte% 6.6 % (0-10); NRBC Flagged by Analyzer 0 % (0-5); Neutrophil # 3.54 X10^3/uL (2.7-7.7); Neutrophil % 55.7 % (47-70); Platelet Count 273 K/mm3 (150-450); RBC Distribution Width SD 50.4 fl (35.1-43.9); Red Blood Count 4.76 M/mm3 (4.2-5.4); White Blood Count 6.4 K/mm3 (4.4-11.0)
[2023-10-18 09:45] LABS: ALB/GLOB Ratio 1.1 RATIO (0.9-2.4); AST(SGOT) 20 U/L (15-37); Alanine Aminotransfer ALT/SGPT 30 U/L (13-56); Albumin, Serum 4.2 g/dL (3.2-5.0); Alkaline Phosphatase 95 U/L (45-117); Anion Gap 5 (5-15); BUN 16 mg/dL (7-18); BUN/Creat Ratio 18.8 RATIO (10-20); Chloride 107 mmol/L (98-107); Creatinine, Serum 0.85 mg/dL (0.55-1.02); EST Glomerular Filtration Rate 71 mL/min (>60); Est Glom Filt Rate - Afr Amer 86 mL/min (>60); Globulin 3.9 g/dL (2.2-4.2); Glucose 81 mg/dL (74-106); Potassium 4.1 mmol/L (3.5-5.1); Protein, Total 8.1 g/dL (6.4-8.2); Sodium Level 140 mmol/L (136-145)
== END | disposition home or self-care (01) ==
LOC: LAB 08:13
PROVIDERS: Referring Provider Internal Medicine Rheumatology; Visit Provider Internal Medicine Rheumatology
DX: M06.4 Inflammatory polyarthropathy (principal); R76.8 Other specified abnormal immunological findings in serum; M17.0 Bilateral primary osteoarthritis of knee; Z79.899 Other long term (current) drug therapy
CPT/HCPCS: 36415; 80053; 85025

== ENCOUNTER → 2023-12-13 | Outpatient (CLI) | payer MEDICARE, SELFPAY ==
[2023-12-13 08:47] LABS: Absolute Lymphocyte Count 2.15 X10^3/uL (0.83-4.51); Absolute Neutrophil Count 4.2 X10^3/uL (2.0-7.7); Basophil# 0.02 X10^3/uL; Basophil% 0.3 % (0-1); Eosinophil# 0.11 X10^3/uL; Eosinophils% 1.6 % (0-5); Hematocrit 40.8 % (37-47); Hemoglobin 13.4 g/dL (12.0-15.0); Lymphocyte # 2.15 X10^3/ul (0.83-4.51); Lymphocyte % 30.4 % (19-41); Mean Corp Hgb Conc 32.8 g/dL (32-36); Mean Corpuscular Hgb 30.9 pg (27.0-32.0); Mean Platelet Vol. 10.3 fl (6.2-12.0); Monocyte# 0.54 X10^3/uL; Monocyte% 7.6 % (0-10); NRBC Flagged by Analyzer 0 % (0-5); Neutrophil % 59.4 % (47-70); Platelet Count 258 K/mm3 (150-450); RBC Distribution Width CV 14.5 % (11.6-14.6); RBC Distribution Width SD 48.8 fl (35.1-43.9); Red Blood Count 4.34 M/mm3 (4.2-5.4); White Blood Count 7.1 K/mm3 (4.4-11.0)
[2023-12-13 09:44] LABS: AST(SGOT) 22 U/L (15-37); Alanine Aminotransfer ALT/SGPT 32 U/L (13-56); Albumin, Serum 3.8 g/dL (3.2-5.0); Alkaline Phosphatase 94 U/L (45-117); Anion Gap 4 (5-15); BUN 16 mg/dL (7-18); BUN/Creat Ratio 22.3 RATIO (10-20); Calcium,Total 9.7 mg/dL (8.5-10.1); Chloride 109 mmol/L (98-107); Creatinine, Serum 0.72 mg/dL (0.55-1.02); EST Glomerular Filtration Rate 86 mL/min (>60); Est Glom Filt Rate - Afr Amer 104 mL/min (>60); Globulin 3.7 g/dL (2.2-4.2); Glucose 94 mg/dL (74-106); Potassium 4.1 mmol/L (3.5-5.1); Protein, Total 7.5 g/dL (6.4-8.2); Sodium Level 138 mmol/L (136-145)
== END | disposition home or self-care (01) ==
LOC: LAB 08:21
PROVIDERS: Visit Provider Internal Medicine Rheumatology
DX: M06.4 Inflammatory polyarthropathy (principal); Z79.899 Other long term (current) drug therapy; R76.8 Other specified abnormal immunological findings in serum; M17.0 Bilateral primary osteoarthritis of knee; M47.897 Other spondylosis, lumbosacral region; M21.41 Flat foot [pes planus] (acquired), right foot; E03.9 Hypothyroidism, unspecified; N39.46 Mixed incontinence; I83.93 Asymptomatic varicose veins of bilateral lower extremities
CPT/HCPCS: 36415; 80053; 85025

== ENCOUNTER → 2024-03-13 | Outpatient (CLI) | payer MEDICARE, SELFPAY ==
[2024-03-13 09:26] LABS: Absolute Lymphocyte Count 2.07 X10^3/uL (0.83-4.51); Absolute Neutrophil Count 3.8 X10^3/uL (2.0-7.7); Basophil# 0.02 X10^3/uL; Basophil% 0.3 % (0-1); Eosinophil# 0.09 X10^3/uL; Eosinophils% 1.4 % (0-5); Hematocrit 43.8 % (37-47); Hemoglobin 14.3 g/dL (12.0-15.0); Lymphocyte # 2.07 X10^3/ul (0.83-4.51); Lymphocyte % 31.7 % (19-41); Mean Corp Hgb Conc 32.6 g/dL (32-36); Mean Corpuscular Hgb 30.9 pg (27.0-32.0); Mean Corpuscular Volume 94.6 fL (81-99); Mean Platelet Vol. 10.6 fl (6.2-12.0); Monocyte# 0.54 X10^3/uL; Monocyte% 8.3 % (0-10); NRBC Flagged by Analyzer 0 % (0-5); Neutrophil # 3.77 X10^3/uL (2.7-7.7); Neutrophil % 57.8 % (47-70); Platelet Count 294 K/mm3 (150-450); RBC Distribution Width CV 14.1 % (11.6-14.6); RBC Distribution Width SD 47.9 fl (35.1-43.9); Red Blood Count 4.63 M/mm3 (4.2-5.4); White Blood Count 6.5 K/mm3 (4.4-11.0)
[2024-03-13 10:00] LABS: AST(SGOT) 18 U/L (15-37); Alanine Aminotransfer ALT/SGPT 35 U/L (13-56); Albumin, Serum 3.9 g/dL (3.2-5.0); Alkaline Phosphatase 93 U/L (45-117); Anion Gap 7 (5-15); BUN 12 mg/dL (7-18); BUN/Creat Ratio 16.6 RATIO (10-20); Calcium,Total 10.1 mg/dL (8.5-10.1); Chloride 106 mmol/L (98-107); Creatinine, Serum 0.72 mg/dL (0.55-1.02); EST Glomerular Filtration Rate 85 mL/min (>60); Est Glom Filt Rate - Afr Amer 102 mL/min (>60); Glucose 92 mg/dL (74-106); Potassium 4.2 mmol/L (3.5-5.1); Protein, Total 7.9 g/dL (6.4-8.2); Sodium Level 141 mmol/L (136-145)
== END | disposition home or self-care (01) ==
LOC: LAB 08:20
PROVIDERS: Referring Provider Internal Medicine Rheumatology; Visit Provider Internal Medicine Rheumatology
DX: M06.4 Inflammatory polyarthropathy (principal); M25.571 Pain in right ankle and joints of right foot; M17.0 Bilateral primary osteoarthritis of knee; R76.8 Other specified abnormal immunological findings in serum
CPT/HCPCS: 36415; 80053; 85025

== ENCOUNTER → 2024-06-05 | Outpatient (CLI) | payer MEDICARE, SELFPAY ==
[2024-06-05 09:33] LABS: Absolute Lymphocyte Count 1.97 X10^3/uL (0.83-4.51); Absolute Neutrophil Count 2.4 X10^3/uL (2.0-7.7); Basophil# 0.04 X10^3/uL; Basophil% 0.8 % (0-1); Eosinophil# 0.06 X10^3/uL; Eosinophils% 1.2 % (0-5); Hematocrit 41.7 % (37-47); Hemoglobin 13.7 g/dL (12.0-15.0); Lymphocyte # 1.97 X10^3/ul (0.83-4.51); Lymphocyte % 40.7 % (19-41); Mean Corp Hgb Conc 32.9 g/dL (32-36); Mean Corpuscular Hgb 30.7 pg (27.0-32.0); Mean Corpuscular Volume 93.5 fL (81-99); Mean Platelet Vol. 10.4 fl (6.2-12.0); Monocyte# 0.31 X10^3/uL; Monocyte% 6.4 % (0-10); NRBC Flagged by Analyzer 0 % (0-5); Neutrophil # 2.43 X10^3/uL (2.7-7.7); Neutrophil % 50.3 % (47-70); Platelet Count 234 K/mm3 (150-450); RBC Distribution Width CV 15.1 % (11.6-14.6); RBC Distribution Width SD 50.7 fl (35.1-43.9); Red Blood Count 4.46 M/mm3 (4.2-5.4); White Blood Count 4.8 K/mm3 (4.4-11.0)
[2024-06-05 09:58] LABS: ALB/GLOB Ratio 1.2 RATIO (0.9-2.4); AST(SGOT) 31 U/L (15-37); Alanine Aminotransfer ALT/SGPT 47 U/L (13-56); Albumin, Serum 4.1 g/dL (3.2-5.0); Alkaline Phosphatase 90 U/L (45-117); Anion Gap 2 (5-15); BUN 12 mg/dL (7-18); BUN/Creat Ratio 16.4 RATIO (10-20); Calcium,Total 9.7 mg/dL (8.5-10.1); Chloride 109 mmol/L (98-107); Creatinine, Serum 0.73 mg/dL (0.55-1.02); EST Glomerular Filtration Rate 84 mL/min (>60); Est Glom Filt Rate - Afr Amer 101 mL/min (>60); Globulin 3.4 g/dL (2.2-4.2); Glucose 93 mg/dL (74-106); Potassium 4.1 mmol/L (3.5-5.1); Protein, Total 7.5 g/dL (6.4-8.2); Sodium Level 140 mmol/L (136-145)
== END | disposition home or self-care (01) ==
LOC: LAB 08:25
PROVIDERS: Referring Provider Internal Medicine Rheumatology; Visit Provider Internal Medicine Rheumatology
DX: M06.4 Inflammatory polyarthropathy (principal); M17.0 Bilateral primary osteoarthritis of knee; R76.8 Other specified abnormal immunological findings in serum
CPT/HCPCS: 36415; 80053; 85025

== ENCOUNTER → 2024-09-01 | Outpatient (CLI) | payer MEDICARE, SELFPAY ==
[2024-09-01 08:30] LABS: Absolute Lymphocyte Count 1.96 X10^3/uL (0.83-4.51); Absolute Neutrophil Count 2.9 X10^3/uL (2.0-7.7); Basophil# 0.02 X10^3/uL; Basophil% 0.4 % (0-1); Eosinophils% 1.8 % (0-5); Hematocrit 40.4 % (37-47); Hemoglobin 13.8 g/dL (12.0-15.0); Lymphocyte # 1.96 X10^3/ul (0.83-4.51); Lymphocyte % 34.6 % (19-41); Mean Corp Hgb Conc 34.2 g/dL (32-36); Mean Corpuscular Hgb 31.8 pg (27.0-32.0); Mean Corpuscular Volume 93.1 fL (81-99); Mean Platelet Vol. 10.4 fl (6.2-12.0); Monocyte# 0.62 X10^3/uL; Monocyte% 10.9 % (0-10); NRBC Flagged by Analyzer 0 % (0-5); Neutrophil # 2.94 X10^3/uL (2.7-7.7); Neutrophil % 51.8 % (47-70); Platelet Count 224 K/mm3 (150-450); RBC Distribution Width SD 49.4 fl (35.1-43.9); Red Blood Count 4.34 M/mm3 (4.2-5.4); White Blood Count 5.7 K/mm3 (4.4-11.0)
[2024-09-01 09:44] LABS: ALB/GLOB Ratio 1.5 RATIO (0.9-2.4); AST(SGOT) 42 U/L (<=31); Alanine Aminotransfer ALT/SGPT 33 U/L (<=34); Albumin, Serum 4.5 g/dL (3.4-4.8); Alkaline Phosphatase 79 U/L (35-104); Anion Gap 12 (5-15); BUN 9 mg/dL (4-19); BUN/Creat Ratio 12.1 RATIO (10-20); Carbon Dioxide 22.2 mmol/L (22.0-29.0); Chloride 104 mmol/L (96-108); Creatinine, Serum 0.78 mg/dL (0.70-1.20); EST Glomerular Filtration Rate 82 (>60); Glucose 99 mg/dL (70-99); Potassium 4.3 mmol/L (3.3-5.1); Protein, Total 7.5 g/dL (5.9-8.4); Sodium Level 138 mmol/L (133-145); Total Bilirubin 0.66 mg/dL (0.00-1.30)
== END | disposition home or self-care (01) ==
LOC: LAB 08:06
PROVIDERS: Referring Provider Internal Medicine Rheumatology; Visit Provider Internal Medicine Rheumatology
DX: M06.4 Inflammatory polyarthropathy (principal); M25.571 Pain in right ankle and joints of right foot; M17.0 Bilateral primary osteoarthritis of knee; R76.8 Other specified abnormal immunological findings in serum
CPT/HCPCS: 36415; 80053; 85025

== ENCOUNTER → 2024-12-15 | Outpatient (CLI) | payer MEDICARE, SELFPAY ==
[2024-12-15 08:37] LABS: Absolute Lymphocyte Count 1.86 X10^3/uL (0.83-4.51); Absolute Neutrophil Count 3.2 X10^3/uL (2.0-7.7); Basophil# 0.02 X10^3/uL; Basophil% 0.4 % (0-1); Eosinophil# 0.06 X10^3/uL; Eosinophils% 1.1 % (0-5); Hematocrit 41.7 % (37-47); Lymphocyte # 1.86 X10^3/ul (0.83-4.51); Lymphocyte % 34.1 % (19-41); Mean Corp Hgb Conc 33.6 g/dL (32-36); Mean Corpuscular Hgb 31.2 pg (27.0-32.0); Mean Corpuscular Volume 92.9 fL (81-99); Mean Platelet Vol. 10.4 fl (6.2-12.0); Monocyte# 0.34 X10^3/uL; Monocyte% 6.2 % (0-10); NRBC Flagged by Analyzer 0 % (0-5); Neutrophil # 3.16 X10^3/uL (2.7-7.7); Neutrophil % 57.8 % (47-70); Platelet Count 260 K/mm3 (150-450); RBC Distribution Width CV 15.5 % (11.6-14.6); RBC Distribution Width SD 51.3 fl (35.1-43.9); Red Blood Count 4.49 M/mm3 (4.2-5.4); White Blood Count 5.5 K/mm3 (4.4-11.0)
--- OUTSIDE RECORDS SUMMARY | 2024-12-15 09:07 | XMS RPT_ITS | CCD ---
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 Field Crop Name Role Phone Phan PAYobaniC, Speedy J Unavailable Phan PA-Yolande, Speedy J Unavailable Rheumatolgy Provider Unavailable Unavailable Teresa Aviles LPN Unavailable Dieudonne LÓPEZ, Guille Casey Unavailable Kya Walker MA Unavailable Unavailable Aris Kelsey C Unavailable Unavailable Renay Masterson MA Unavailable Unavailable Kerri CORTEZ, Britni Damon Unavailable Unavaila Keturah Uribe LPN Unavailable Unavailable Unavailable Unavailable PHAN, SPEEDY PAC Admitting Unavailable PHAN, SPEEDY PAC Attending Unavailable PHAN, SPEEDY PAC Primary Care Unavailable PHAN, SPEEDY PAC Consulting Unavailable PROVIDER, UNKNOWN Consulting Unavailable BCCP Admitting Unavailable BCCP Attending Unavailable BCCP Primary Care Unavailable PHAN, SPEEDY PAC Consulting Unavailable PROVIDER, UNKNOWN Consulting Unavailable BCCP Admitting Unavailable BCCP Attending Unavailable BCCP Primary Care Unavailable PHAN, SPEEYD PAC Consulting Unavailable PROVIDER, UNKNOWN Consulting Unavailable Perez Yesenia Attending Unavailable Phan, Speedy Primary Care Unavailable Vellanki, Yesenia Referring Unavailable Phan, Speedy Primary Care Unavailable Vellanki, Yesenia Attending Unavailable Phan, Speedy Primary Care Unavailable Vellanki, Yesenia Attending Unavailable Vellanki, Yesenia Referring Unavailable Phan, Speedy Primary Care Unavailable Vellanki, Yesenia Attending Unavailable Vellanki, Yesenia Referring Unavailable David Garzaril Attending Unavailable Phan, Speedy Primary Care Unavailable Vellanki, Yesenia Attending Unavailable Phan, Speedy Primary Care Unavailable Vellanki, Yesenia Referring Unavailable Phan PA, Speedy Primary Care Provider [phone] Perez LÓPEZ, Dr. Patterson Attending Provider Perez LÓPEZ, Dr. Patterson Referring Provider Kayla LÓPEZ, Dr. Chopra Attending Provider Medications Current Medications Medication Drug Class(es) Dates Sig (Normalized) Sig (Original) Ascorbic Acid-Elderberry Fruit (4 sources) Start: 05-24-2020 Ascorbic Acid-Elderberry Fruit Active 1 EACH PO DAILY May 24, 2020 12:00am Start: 05-24-2020 Ascorbic Acid- Elderberry Fruit Active 1 EACH PO DAILY May 24, 2020 1:00am Ascorbic Acid-Elderberry Fruit 1 EACH tablet,chewable (1 source) Start: 05-24-2020 take 1 tablet by mouth once daily Ascorbic Acid-Elderberry Fruit 1 EACH tablet,chewable Active 1 NMA PO DAILY May 24, 2020 1:00am folic acid 1 mg oral tablet (12 sources) folic acid 1 mg tablet ; 2 tab once daily (1 mg) levothyroxine sodium 0.112 mg oral tablet (20 sources) l-Thyrox ine Start: 12-17-2023 levothyroxine 112 mc g tablet ; 1 (one) tablet daily for 0 days Quantity: 90 {Tablet} Refills: 0 Ordered: 17-Dec-2023 ERMA Phan Start: 17-Dec-2023 Comments: Mail order. Start: 10-04-2023 levothyroxine 112 mcg tablet ; 1 (one) tablet daily for 0 days Quantity: 90 {Tablet} Refills: 0 Ordered: 05-Oct-2023 ERMA Phan Start: 05-Oct-2023 Comments: Mail order. Start: 08-23-2023 levothyroxine 112 mcg tablet ; 1 (one) tablet daily for 0 days Quantity: 90 {Tablet} Refills: 0 Ordered: 23-Aug-2023 CINTIA Walker Start: 23-Aug-2023 Comments: Mail order. Start: 05-24-2023 levothyroxine 125 mcg capsule ; 1 (one) capsule daily for 0 days Quantity: 90 {Capsule} Refills: 0 Ordered: 24-May-2023 ERMA Phan Start: 24-May-2023 Comments: Mail order. Comment on above: Mail order. methotrexate 2.5 mg oral tablet (12 sources) Folate Analog Metabolic Inhibitor take 1 tablet by mouth every week methotrexate sodium 2.5 mg tablet ; 1 tab by mouth once a week (2.5 mg) Multivitamin Oral Tablet (20 sources) Multivitamin Ora l Tablet Pxtieausunve-Ge-Drva-M inerals (4 sources) Start: 0 Lzqlixuksinq-Nv-Efkk- Minerals Active 1 EACH PO DAILY May 24, 2020 12:00am Start: 05-24-2020 Multivitamin-C v-Fpcs-Qnosverj Active 1 EACH PO DAILY May 24, 2020 1:00am Dnwknbpylebq-Ei-Wqvl-Mineral s 1 EACH tablet (1 source) Start: 05-24-2020 take 1 tablet by mouth once daily Ijgjhybqmdcc-Zw-Kimq-Minerals 1 EACH tablet Active 1 NMA PO DAILY May 24, 2020 1:00am oxybutynin chloride 5 mg ora l tablet (20 sources) Choline rgic Muscari conrado Antagon ist take 1 tablet by mouth twice daily Oxybutynin Chloride 5 MG Oral Tablet ; One tablet two times daily (5 MG) Completed/Discontinued Medications Medication Drug Class(es) Dates Sig (Normalized) Sig (Original) atorvastatin 20 mg oral tablet (20 sources) HMG-CoA Reductase Inhibitor Start: 04-30-2022 End: 2023 atorvastatin 20 mg tablet ; 1 (one) Tablet daily for 0 days Quantity: 30 {Tablet} Refills: 0 Ordered: 05-Feb-2023 CINTIA Masterson Start: 30-Apr-2022 End: 05-Feb-2023 Status: Inactive Comments: For delivery Comment on above: For delivery oxyCODONE hydrochloride 5 mg oral tablet (5 sources) Opioid Agonist Start: 06-04-2020 End: 06-07-2020 take 1 tablet by mouth every four hours as needed for pain Oxycodone 5 MG tablet Discontinued 5 mg PO EVERY 4 HOURS NEEDED as needed for Pain Score 6-10 12 3 June 04, 2020 June 06, 2020 1:00am June 07, 2020 1:03am Problems Active Problems Problem Classification Problem Date Documented Date Episodic/Chronic Disorders of lipid metabolism (20 sources) Hyperlipidemia; Translations: [Hyperlipidemia, unspecified] 2023 Chronic Genitourinary symptoms and ill-defined conditions (20 sources) Urinary incontinence; Translations: [Unspecified urinary incontinence] 2023 Chronic Immunizations and screening for infectious disease (20 sources) Anti-nuclear factor positive; Translations: [Other specified abnormal immunological findings in serum] 02-09-2023 Episodic Influenza (20 sources) Influenza; Translations: [Influenza due to unidentified influenza virus with other respiratory manifestations] 04-30-2022 Episodic Other circulatory disease (20 sources) Elevated blood pressure; Translations: [Elevated blood-pressure reading, without diagnosis of hypertension] 2023 Episodic Other connective tissue disease (20 sources) Muscle pain; Translations: [Myalgia, unspecified site] 2023 Episodic Other injuries and conditions due to external causes (20 sources) Knee, leg, ankle, and foot injury 2023 Episodic Other non-traumatic joint disorders (20 sources) Ankle edema; Translations: [Effusion, right ankle] 2023 Episodic Other non-traumatic joint disorders (20 sources) Hip pain; Translations: [Pain in left hip] 2023 Episodic Other non-traumatic joint disorders (20 sources) Multiple joint pain; Translations: [Pain in unspecified joint] 2023 Episodic Other non-traumatic joint disorders (20 sources) Ankle pain; Translations: [Pain in right ankle and joints of right foot] 09-17-2023 Episodic Other nutritional; endocrine; and metabolic disorders (20 sources) Morbid obesity; Translations: [Morbid (severe) obesity due to excess calories] 12-16-2023 Chronic Other screening for suspected conditions (not mental disorders or infectious disease) (20 sources) Patient encounter status; Translations: [Encounter for screening for cardiovascular disorders] 2023 Episodic Residual codes; unclassified (20 sources) Colon cancer screening declined; Translations: [Procedure and treatment not carried out because of patient's decision for unspecified reasons] 12-16-2023 Episodic Residual codes; unclassified (20 sources) Osteoporosis screening declined; Translations: [Procedure and treatment not carried out because of patient's decision for unspecified reasons] 12-16-2023 Episodic Rheumatoid arthritis and related disease (2 sources) Inflammatory polyarthropathy; Translations: [Inflammatory polyarthropathy] Onset: 09-14-2024 12-16-2023 Chronic Thyroid disorders (20 sources) Hypothyroidism; Translations: [Hypothyroidism, unspecified] 08-19-2023 Chronic Unclassified (20 sources) deliveries 2023 Comment on above: 1. Unclassified (20 sources) Number of Pregnancies 2023 Comment on above: 6. Unclassified (20 sources) Vaginal deliveries 2023 Comment on above: 5. Past or Other Problems Problem Classification Problem Date Documented Da te Episodic/Chronic Unclassified (20 sources) Leg pain - The leg pain began [...] of diabetes and hypertension. Note for Leg pain: Patient states that my whole body hurts, but that the worst of her pain is in her legs. She denies any fatigue, shortness of breath, or chest pain. She does note swelling in both her legs for the last 2-3 weeks. 2023 Unclassified (20 sources) MCR Well Adult - In general the [...] patient does not have Healthcare Power of Broaching Machine Set Up Operator or Living Will. Note for MCR Well Adult: Patient reports that she is feeling well overall.Has labs to be reviewed today.Patient also reports that she has issues with urinary incontinence. She is supposed to see Dr. Marti Bosch for this in May, but has not yet heard from their office. She does not feel the medication they gave her is helping. 04-30-2022 Unclassified (20 sources) Cold Symptoms - Symptoms include nasal congestion, [...] with similar symptoms. Note for Upper respiratory infection: Pt c/o dizziness on and off. reviewed by [facility] 09-01-2014 Unclassified (20 sources) Ankle Injury - Pt here this morning because she was walking on sidewalk and side stepped and fell and injured right ankle. Was able to get up and walk home but painful to walk on it. Ankle is swollen on lateral aspect but complains of pain being mostly in foot. Used ice to area and used some Alleve. Here for evlauation. reviewed by [facility] 11-04-2012 Unclassified (20 sources) Ankle pain - The onset of the ankle pain has been gradual following no specific incident and has been occurring in a persistent pattern for 2 weeks. The course has been constant. The pain is characterized as a moderate to severe (Patient reports that the pain makes it difficult to walk at times.) sharp stabbing (Pt said sometimes has a burning sensation). The pain is in the right ankle and is described as being located in the entire ankle. The pain is aggravated by any movement. Relieving factors include rest, medication (Ibuprofen) and elevation of leg. Note for Ankle pain: Patient has a history of rheumatoid arthritis and is currently taking methotrexate (unsure of the exact dose). 09-17-2023 Unclassified (12 sources) MCR Well Adult - In general the patient feels well with minor complaints (Pt said she is sore and stiff. Patient has inflammatory polyarthritis currently managed by rheumatology. Her next follow up with them is next week.), has good energy level and is sleeping well. The patient has a balanced diet and takes supplemental vitamins. The patient exercises none (Pt said she tries to walk if she can.) and sleeps 8 hours per night. The patient denies having trouble with bathing, dressing/grooming, toileting, preparing meals and ambulating. The patient denies having trouble with grocery shopping, driving, use of telephone, housework, laundry, preparing/taking medications and finances. The patient performs monthly self breast exam. The patient does not have Healthcare Power of Broaching Machine Set Up Operator or Living Will. Note for MCR Well Adult: Patient is requesting an order for a mammogram at this time.She is not fasting today. 12-16-2023 Results Test Name Value Interpretation Reference Range Facility Absolute neutrophil countOrd ered By: Yesenia Todd on 09-01-2024 Neutrophils (Bld) [#/Vol] 2.9 10*3/uL 2.0-7.7 [facility] BUN/creatinine [facility]Ordered By[facility]2024 Urea nitrogen/Creatinine [Mass ratio] 12.1 mg/mg 10-20 [facility] Basophil percentageOrdered B y: Yesenia Todd on 09-01-2024 Basophils/100 WBC (Bld) 0.4 % 0-1 [facility] Bilirubin, totalOrdered By: Yeseniacintia Todd on 09-01-2024 Bilirubin [Mass/Vol] 0.66 mg/dL 0.00-1.30 [facility] CBC W/Diff, Automatedon 08-06 Absolute Lymph 1.96 X10 3/uL Normal 0.83-4.51 [facility] Comment on above: Performed By: #### L 500.4050, L100.0100 #### [facility] [address], [address] Absolute Neut 2.9 X10 3/uL Normal 2.0-7.7 [facility] Comment on above: Performed By: #### L 500.4050, L100.0100 #### [facility] [address] [place], [address] Basophils/100 WBC (Bld) 0.4 % Normal 0-1 [facility] Comment on above: Performed By: #### L 500.4050, L100.0100 #### [facility] [address] [place], [address] Eosinophils/100 WBC (Bld) 1.8 % Normal 0-5 [facility] Comment on above: Performed By: #### L 500.4050, L100.0100 #### [facility] [address] [place], [address] Erythrocyte distribution width (RBC) [Ratio] 15.0 % High 11.6-14.6 [facility] Comment on above: Performed By: #### L 500.4050, L100.0100 #### [facility] [address] [place], [address] Hematocrit (Bld) [Volume fraction] 40.4 % Normal 37-47 [facility] Comment on above: Performed By: #### L 500.4050, L100.0100 #### [facility] [address] [place], [address] Hemoglobin (Bld) [Mass/Vol] 13.8 g/dL Normal 12.0-15.0 [facility] Comment on above: Performed By: #### L 500.4050, L100.0100 #### [facility] [address] [place], [address] IG% 0.500 Normal 0.0-0.9 [facility] Comment on above: Result Comment: IG% - Immature Granulocytes (promyelocytes, myelocytes and metamyelocytes) > 1% indicates that a LEFT SHIFT is Present. Performed By: #### L 500.4050, L100.0100 #### [facility] [address] [place], [address] Lymphocytes/100 WBC (Bld) 34.6 % Normal 19-41 [facility] Comment on above: Performed By: #### L 500.4050, L100.0100 #### [facility] [address] [place], [address] MCH (RBC) [Entitic mass] 31.8 pg Normal 27.0-32.0 [facility] Comment on above: Performed By: #### L [id number], L100.0100 #### [facility] [address] [place], [address] MCHC (RBC) [Mass/Vol] 34.2 g/dL Normal 32-36 [facility] Comment on above: Performed By: #### L 500.4050, L100.0100 #### [facility] [address] [place], [address] MCV (RBC) [Entitic vol] 93.1 fL Normal 81-99 [facility] Comment on above: Performed By: #### L [id number], L100.0100 #### [facility] [address] [place], [address] Monocytes/100 WBC (Bld) 10.9 % High 0-10 [facility] Comment on above: Performed By: #### L 500.4050, L100.0100 #### [facility] [address] [place], [address] Neutrophils/100 WBC (Bld) 51.8 % Normal 47-70 [facility] Comment on above: Performed By: #### L 500.4050, L100.0100 #### [facility] [address] [place], [address] Nucleated RBC (Bld) [#/Vol] 0 10*3/uL Normal 0-5 [facility] Comment on above: Performed By: #### L 500.4050, L100.0100 #### [facility] [address] [place], [address] Platelet mean volume (Bld) [Entitic vol] 10.4 fL Normal 6.2-12.0 [facility] Comment on above: Performed By: #### L 500.4050, L100.0100 #### [facility] [address] [place], [address] Platelets (Bld) [#/Vol] 224 10*3/uL Normal 150-450 [facility] Comment on above: Performed By: #### L 500.4050, L100.0100 #### [facility] [address] [place], [address] RBC (Bld) [#/Vol] 4.34 10*6/uL Normal 4.2-5.[address] [facility] Comment on above: Performed By: #### L 500.4050, L100.0100 #### [facility] [address] [place], [address] RDW SD 49.4 fl High 35.1-43.9 [facility] Comment on above: Performed By: #### L 500.4050, L100.0100 #### [facility] [address] [place], [address] WBC (Bld) [#/Vol] 5.7 10*3/uL Normal 4.4-11.0 [facility] Comment on above: Performed By: #### L 500.4050, L100.0100 #### [facility] [address] [place], [address] Carbon dioxide measurementOr dered By: Yesenia Todd on 09-01-2024 CO2 [Moles/Vol] 22.2 mmol/L 22.0-29.0 [facility] Chloride measurementOrdered By: Yesenia Todd on 09-01-2024 Chloride [Moles/Vol] 104 mmol/L 96-108 [facility] Comprehensive Metabolic Prof ilon 09-01-2024 Albumin [Mass/Vol] 4.5 g/dL Normal 3.4-4.8 [facility] Comment on above: Performed By: #### L 500.4050, L100.0100 #### [facility] [address] [place], [address] Albumin/Globulin [Mass ratio] 1.5 {ratio} Normal 0.9-2.4 [facility] Comment on above: Performed By: #### L 500.4050, L100.0100 #### [facility] [address] [place], [address] ALK PHOS 79 U/L Normal 35-104 [facility] Comment on above: Performed By: #### L 500.4050, L100.0100 #### [facility] [address] [place], [address] ALT [Catalytic activity/Vol] 33 U/L Normal <=34 [facility] Comment on above: Result Comment: Hemo lysis present, Results??could be affected. ?? Performed By: #### L 500.4050, L100.0100 #### [facility] [address] [place], [address] Anion gap [Moles/Vol] 12 mmol/L Normal 5-15 [facility] Comment on above: Performed By: #### L 500.4050, L100.0100 #### [facility] [address] [place], [address] AST [Catalytic activity/Vol] 42 U/L High <=31 [facility] Comment on above: Result Comment: Hemo lysis present, Results??could be affected. ?? Performed By: #### L 500.4050, L100.0100 #### [facility] [address] [place], [address] Bilirubin [Mass/Vol] 0.66 mg/dL Normal 0.00-1.30 [facility] Comment on above: Performed By: #### L 500.4050, L100.0100 #### [facility] [address] [place], [address] BUN/CRE 12.1 RATIO Normal 10-20 [facility] Comment on above: Performed By: #### L 500.4050, L100.0100 #### [facility] [address] [place], [address] Calcium [Mass/Vol] 10.0 mg/dL Normal 7.6-11.0 [facility] Comment on above: Performed By: #### L 500.4050, L100.0100 #### [facility] [address] [place], [address] Chloride [Moles/Vol] 104 mmol/L Normal 96-108 [facility] Comment on above: Performed By: #### L 500.4050, L100.0100 #### [facility] [address] [place], [address] CO2 [Moles/Vol] 22.2 mmol/L Normal 22.0-29.0 [facility] Comment on above: Performed By: #### L 500.4050, L100.0100 #### [facility] [address] [place], [address] Creatinine [Mass/Vol] 0.78 mg/dL Normal 0.70-1.20 [facility] Comment on above: Performed By: #### L 500.4050, L100.0100 #### [facility] [address] [place], [address] GFR/1.73 sq M.predicted among non-blacks MDRD (S/P/Bld) [Vol rate/Area] 82 mL/min/{1.73_m2} Normal >60 [facility] Comment on above: Result Comment: mL/m in/1.73m2 CKD-EPI Creatinine Equation (2020) Performed By: #### L 500.4050, L100.0100 #### [facility] [address] [place], [address] Globulin (S) [Mass/Vol] 3.0 g/dL Normal 2.2-4.2 [facility] Comment on above: Performed By: #### L 500.4050, L100.0100 #### [facility] [address] [place], [address] Glucose [Mass/Vol] 99 mg/dL Normal 70-99 [facility] Comment on above: Performed By: #### L 500.4050, L100.0100 #### [facility] [address] [place], [address] Potassium [Moles/Vol] 4.3 mmol/L Normal 3.3-5.1 [facility] Comment on above: Result Comment: Hemo lysis present, Results??could be affected. ?? Performed By: #### L 500.4050, L100.0100 #### [facility] [address] [place], [address] Sodium [Moles/Vol] 138 mmol/L Normal 133-145 [facility] Comment on above: Performed By: #### L 500.4050, L100.0100 #### [facility] [address] [place], [address] T PROT 7.5 g/dL Normal 5.9-8.4 [facility] Comment on above: Performed By: #### L 500.4050, L100.0100 #### [facility] [address] [place], [address] Urea nitrogen [Mass/Vol] 9 mg/dL Normal 4-19 [facility] Comment on above: Performed By: #### L 500.4050, L100.0100 #### [facility] [address] [place], [address] Eosinophil percentageOrdered By: Yesenia Todd on 09-01-2024 Eosinophils/100 WBC (Bld) 1.8 % 0-5 [facility] Erythrocyte distribution wid th ratioOrdered By: Yesenia Todd on 09-01-2024 Erythrocyte distribution width (RBC) [Ratio] 15.0 % High 11.6-14.6 [facility] Erythrocyte distribution wid th standard deviationOrdered By: Yeseniacintia Todd on 09-01-2024 Erythrocyte distribution width (RBC) [Entitic vol] 49.4 fL High 35.1-43.9 [facility] GFR/1.73 sq M.predicted evelin g non-blacks MDRD (S/P/Bld) [Vol rate/Area]Ordered By: Yesenia Todd on 09-01-2024 Estimated GFR (MDRD) Non-Af Amer 82 >60 [facility] Comment on above: mL/min/1.73m2 CKD-EP I Creatinine Equation (2020) Hematocrit Auto (Bld) [Volum e fraction]Ordered By: Yesenia Todd on 09-01-2024 Hematocrit (Bld) [Volume fraction] 40.4 % 37-47 [facility] Hemoglobin measurementOrdere d By: Yesenia Todd on 09-01-2024 Hemoglobin (Bld) [Mass/Vol] 13.8 g/dL 12.0-15.0 [facility] Immature granulocytes/100 WB C Auto (Bld)Ordered By: Yesenia Todd on 09-01-2024 Immature granulocytes/100 WBC (Bld) 0.500 % 0.0-0.9 [facility] Comment on above: IG% - Immature Granu locytes (promyelocytes, myelocytes and metamyelocytes) > 1% indicates that a LEFT SHIFT is Present. Laboratory - Chemistry and C hemistry - challengeOrdered By: Yesenia Todd on 09-01-2024 AST [Catalytic activity/Vol] 42 U/L High <32 [facility] Comment on above: Hemolysis present, R esults could be affected. Lymphocytes Auto (Unsp spec) [#/Vol]Ordered By: Yesenia Todd on 09-01-2024 Lymphocytes (Bld) [#/Vol] 1.96 10*3/uL 0.83-4.51 [facility] Lymphocytes/100 WBC Auto (Un sp spec)Ordered By: Yesenia Todd on 09-01-2024 Lymphocytes/100 WBC (Bld) 34.6 % 19-41 [facility] MCV (mean corpuscular volume ) determinationOrdered By: Yesenia Todd on 09-01-2024 MCV (RBC) [Entitic vol] 93.1 fL 81-99 [facility] Mean corpuscular hemoglobin (MCH) determinationOrdered By: Yesenia Todd on 09-01-2024 MCH (RBC) [Entitic mass] 31.8 pg 27.0-32.0 [facility] Mean corpuscular hemoglobin concentration (MCHC) determinationOrdered By: Yesenia Todd on 09-01-2024 MCHC (RBC) [Mass/Vol] 34.2 g/dL 32-36 [facility] Mean platelet volume determi nationOrdered By: Yesenia Todd on 09-01-2024 Platelet mean volume (Bld) [Entitic vol] 10.4 fL 6.2-12.0 [facility] Monocyte percentageOrdered B y: Yesenia Todd on 09-01-2024 Monocytes/100 WBC (Bld) 10.9 % High 0-10 [facility] Neutrophil percentageOrdered By: Yesenia Todd on 09-01-2024 Neutrophils/100 WBC (Bld) 51.8 % 47-70 [facility] Nucleated red blood cell per centageOrdered By: Yesenia Todd on 09-01-2024 Nucleated RBC/100 WBC (Bld) [Ratio] 0 % 0-5 [facility] Platelet countOrdered By: Jeremias Todd on 09-01-2024 Platelets (Bld) [#/Vol] 224 10*3/uL 150-450 [facility] RBC Auto (Bld) [#/Vol]Ordere d By: Yesenia Todd on 09-01-2024 RBC (Bld) [#/Vol] 4.34 10*6/uL 4.2-5.[address] [facility] Serum creatinine measurement (mass/volume)Ordered By: Yesenia Todd on 09-01-2024 Creatinine [Mass/Vol] 0.78 mg/dL 0.70-1.20 [facility] Serum globulin measurementOr dered By: Yesenia Todd on 09-01-2024 Globulin (S) [Mass/Vol] 3.0 g/dL 2.2-4.2 [facility] Serum glucose measurement (m ass/volume)Ordered By: Yesenia Todd on 09-01-2024 Glucose [Mass/Vol] 99 mg/dL 70-99 [facility] Serum or plasma alanine hernandez otransferase (ALT) measurementOrdered By: Yesenia Todd on 09-01-2024 ALT [Catalytic activity/Vol] 33 U/L <35 [facility] Comment on above: Hemolysis present, R esults could be affected. Serum or plasma albumin saman urement (mass/volume)Ordered By: Yesenia Todd on 09-01-2024 Albumin [Mass/Vol] 4.5 g/dL 3.4-4.8 [facility] Serum or plasma albumin/glob ulin mass ratioOrdered By: Yesenia Todd on 09-01-2024 Albumin/Globulin [Mass ratio] 1.5 {ratio} 0.9-2.4 [facility] Serum or plasma alkaline nixon sphatase measurementOrdered By: Yesenia Todd on 09-01-2024 ALP [Catalytic activity/Vol] 79 U/L 35-104 [facility] Serum or plasma anion gap de termination (moles/volume)Ordered By: Yesenia Todd on 09-01-2024 Anion gap [Moles/Vol] 12 mmol/L 5-15 [facility] Serum or plasma calcium saman urement (mass/volume)Ordered By: Yesenia Todd on 09-01-2024 Calcium [Mass/Vol] 10.0 mg/dL 7.6-11.0 [facility] Serum or plasma potassium me asurementOrdered By: Yesenia Todd on 09-01-2024 Potassium [Moles/Vol] 4.3 mmol/L 3.3-5.1 [facility] Comment on above: Hemolysis present, R esults could be affected. Serum or plasma sodium measu rement (moles/volume)Ordered By: Yesenia Todd on 09-01-2024 Sodium [Moles/Vol] 138 mmol/L 133-145 [facility] Serum or plasma urea nitroge n measurement (mass/volume)Ordered By: Yesenia Todd on 09-01-2024 Urea nitrogen [Mass/Vol] 9 mg/dL 4-19 [facility] Total proteinOrdered By: Yelena Todd on 09-01-2024 Protein [Mass/Vol] 7.5 g/dL 5.9-8.4 [facility] White blood cell (WBC) count Ordered By: [facility] Perez on 09-01-2024 WBC (Bld) [#/Vol] 5.7 10*3/uL 4.4-11.0 [facility] Foot min 3 Viewson 4 Foot min 3 Views [facility]iology [address] [place] [address] Foot min 3 Views MR#: [id number] Acct: [id number] Name: ROMA BOSCH Rep #: [id number] : [id number] F [id number] From: Mohinder ortiz DO PCP: JEREMIAS Garcia Status: DEP AMB Study: Foot min 3 Views Date of Exam: 06/14/24 Exam# [id number] Ordering Dr: Dawna Espinoza DPM [id number] EXAM: XR RIGHT FOOT COMPLETE, 3 OR MORE VIEWS CLINICAL INDICATION: PAIN -- STANDING TECHNIQUE: Frontal, lateral and oblique views of the right foot. COMPARISON: No relevant prior studies available. FINDINGS: BONES/JOINTS: Calcaneal spurs. Pes planus. Dorsal midfoot spurring. Mild first metatarsophalangeal joint arthrosis. No acute fracture. No subluxation. Normal alignment. No sclerotic or destructive changes observed. SOFT TISSUES: No significant abnormality. No soft tissue swelling or gas. No radiopaque foreign body. RAD/Foot min 3 Views IMPRESSION: Pes planus and degenerative changes. No acute osseous findings. Electronically Signed: Mohinder Amin, DO at 23:23 EST , CC: JAIDA Espinoza; JEREMIAS Garcia Nephrologist: Signed Normal [facility] Absolute neutrophil countOrd ered By: Yesenia Todd on 06-05-2024 Neutrophils (Bld) [#/Vol] 2.4 10*3/uL 2.0-7.7 [facility] Albumin to globulin ratioOrd ered By: Yesenia Todd on 06-05-2024 Albumin/Globulin [Mass ratio] 1.2 {ratio} 0.9-2.4 [facility] Basophil percentageOrdered B y: Yesenia Todd on 06-05-2024 Basophils/100 WBC (Bld) 0.8 % 0-1 [facility] Bilirubin, totalOrdered By: Yesenia Todd on 06-05-2024 Bilirubin [Mass/Vol] 0.80 mg/dL 0.20-1.00 [facility] Comment on above: For patients on eltr ombopag therapy, use of Dimension Langel[place] TBIL is not recommended. Blood urea nitrogen (BUN)/cr eatinine ratioOrdered By: Yesenia Todd on 06-05-2024 Urea nitrogen/Creatinine [Mass ratio] 16.4 mg/mg 10-20 [facility] CBC W/Diff, Automatedon 12- Absolute Lymph 1.97 X10 3/uL Normal 0.83-4.51 [facility] Comment on above: Performed By: #### L 500.4050, L100.0100 #### [facility] [address] [place], [place], [id number] Absolute Neut 2.4 X10 3/uL Normal 2.0-7.7 [facility] Comment on above: Performed By: #### L 500.4050, L100.0100 #### [facility] [address] [place], [address] Basophils/100 WBC (Bld) 0.8 % Normal 0-1 [facility] Comment on above: Performed By: #### L 500.4050, L100.0100 #### [facility] [address] [place], [address] Eosinophils/100 WBC (Bld) 1.2 % Normal 0-5 [facility] Comment on above: Performed By: #### L 500.4050, L100.0100 #### [facility] [address] [place], [address] Erythrocyte distribution width (RBC) [Ratio] 15.1 % High 11.6-14.6 [facility] Comment on above: Performed By: #### L 500.4050, L100.0100 #### [facility] [address] [place], [address] Hematocrit (Bld) [Volume fraction] 41.7 % Normal 37-47 [facility] Comment on above: Performed By: #### L 500.4050, L100.0100 #### [facility] [address] [place], [address] Hemoglobin (Bld) [Mass/Vol] 13.7 g/dL Normal 12.0-15.0 [facility] Comment on above: Performed By: #### L 500.4050, L100.0100 #### [facility] [address] [place], [address] IG% 0.600 Normal 0.0-0.9 [facility] Comment on above: Result Comment: IG% - Immature Granulocytes (promyelocytes, myelocytes and metamyelocytes) > 1% indicates that a LEFT SHIFT is Present. Performed By: #### L 500.4050, L100.0100 #### [facility] [address] [place], [address] Lymphocytes/100 WBC (Bld) 40.7 % Normal 19-41 [facility] Comment on above: Performed By: #### L 500.4050, L100.0100 #### [facility] [address] [place], [address] MCH (RBC) [Entitic mass] 30.7 pg Normal 27.0-32.0 [facility] Comment on above: Performed By: #### L 500.4050, L100.0100 #### [facility] [address] [place], [address] MCHC (RBC) [Mass/Vol] 32.9 g/dL Normal 32-36 [facility] Comment on above: Performed By: #### L 500.4050, L100.0100 #### [facility] [address] [place], [address] MCV (RBC) [Entitic vol] 93.5 fL Normal 81-99 [facility] Comment on above: Performed By: #### L 500.4050, L100.0100 #### [facility] [address] [place], [address] Monocytes/100 WBC (Bld) 6.4 % Normal 0-10 [facility] Comment on above: Performed By: #### L 500.4050, L100.0100 #### [facility] [address] [place], [address] Neutrophils/100 WBC (Bld) 50.3 % Normal 47-70 [facility] Comment on above: Performed By: #### L 500.4050, L100.0100 #### [facility] [address] [place], [address] Nucleated RBC (Bld) [#/Vol] 0 10*3/uL Normal 0-5 [facility] Comment on above: Performed By: #### L 500.4050, L100.0100 #### [facility] [address] [place], [address] Platelet mean volume (Bld) [Entitic vol] 10.4 fL Normal 6.2-12.0 [facility] Comment on above: Performed By: #### L 500.4050, L100.0100 #### [facility] [address] [place], [address] Platelets (Bld) [#/Vol] 234 10*3/uL Normal 150-450 [facility] Comment on above: Performed By: #### L 500.4050, L100.0100 #### [facility] [address] [place], [address] RBC (Bld) [#/Vol] 4.46 10*6/uL Normal 4.2-5.[address] [facility] Comment on above: Performed By: #### L 500.4050, L100.0100 #### [facility] [address] [place], [address] RDW SD 50.7 fl High 35.1-43.9 [facility] Comment on above: Performed By: #### L 500.4050, L100.0100 #### [facility] [address] [place], [address] WBC (Bld) [#/Vol] 4.8 10*3/uL Normal 4.4-11.0 [facility] Comment on above: Performed By: #### L 500.4050, L100.0100 #### [facility] [address] [place], [address] Carbon dioxide measurementOr dered By: Yesenia Todd on 06-05-2024 CO2 [Moles/Vol] 29.0 mmol/L 21.0-32.0 [facility] Chloride measurementOrdered By: Yesenia Todd on 06-05-2024 Chloride [Moles/Vol] 109 mmol/L High 98-107 [facility] Comprehensive Metabolic Prof ilon 06-05-2024 Albumin [Mass/Vol] 4.1 g/dL Normal 3.2-5.0 [facility] Comment on above: Performed By: #### L 500.4050, L100.0100 #### [facility] [address] [place], [address] Albumin/Globulin [Mass ratio] 1.2 {ratio} Normal 0.9-2.4 [facility] Comment on above: Performed By: #### L 500.4050, L100.0100 #### [facility] [address] [place], [address] ALK P 90 U/L Normal 45-117 [facility] Comment on above: Performed By: #### L 500.4050, L100.0100 #### [facility] [address] [place], [address] ALT [Catalytic activity/Vol] 47 U/L Normal 13-56 [facility] Comment on above: Performed By: #### L 500.4050, L100.0100 #### [facility] [address] [place], [address] AST [Catalytic activity/Vol] 31 U/L Normal 15-37 [facility] Comment on above: Performed By: #### L 500.4050, L100.0100 #### [facility] [address] [place], [address] Bilirubin [Mass/Vol] 0.80 mg/dL Normal 0.20-1.00 [facility] Comment on above: Result Comment: For patients on eltrombopag therapy, use of Dimension Langeloth TBIL is not recommended. Performed By: #### L 500.4050, L100.0100 #### [facility] [address] [place], [address] BUN/CRE 16.4 RATIO Normal 10-20 [facility] Comment on above: Performed By: #### L 500.4050, L100.0100 #### [facility] [address] [place], [address] CA,Total 9.7 mg/dL Normal 8.5-10.1 [facility] Comment on above: Performed By: #### L 500.4050, L100.0100 #### [facility] [address] [place], [address] Chloride [Moles/Vol] 109 mmol/L High 98-107 [facility] Comment on above: Performed By: #### L 500.4050, L100.0100 #### [facility] [address] [place], [address] CO2 [Moles/Vol] 29.0 mmol/L Normal 21.0-32.0 [facility] Comment on above: Performed By: #### L 500.4050, L100.0100 #### [facility] [address] [place], [address] Creatinine [Mass/Vol] 0.73 mg/dL Normal 0.55-1.02 [facility] Comment on above: Result Comment: The validity of the calculated GFR GFRAA in patients over 70 years has not been determined. Clinical correlation is essential. Performed By: #### L 500.4050, L100.0100 #### [facility] [address] [place], [address] EST GFR - AA 101 mL/min Normal >60 [facility] Comment on above: Result Comment: Afri can Iranian GFR Calc Performed By: #### L 500.4050, L100.0100 #### [facility] [address] [place], [address] GAP 2 Low 5-15 [facility] Comment on above: Performed By: #### L 500.4050, L100.0100 #### [facility] [address] [place], [address] GFR/1.73 sq M.predicted among non-blacks MDRD (S/P/Bld) [Vol rate/Area] 84 mL/min/{1.73_m2} Normal >60 [facility] Comment on above: Result Comment: Non- GFR Calc Performed By: #### L 500.4050, L100.0100 #### [facility] [address] [place], [address] Globulin (S) [Mass/Vol] 3.4 g/dL Normal 2.2-4.2 [facility] Comment on above: Performed By: #### L 500.4050, L100.0100 #### [facility] [address] [place], [address] Glucose [Mass/Vol] 93 mg/dL Normal 74-106 [facility] Comment on above: Performed By: #### L 500.4050, L100.0100 #### [facility] [address] [place], [address] Potassium [Moles/Vol] 4.1 mmol/L Normal 3.5-5.1 [facility] Comment on above: Performed By: #### L 500.4050, L100.0100 #### [facility] [address] [place], [address] Sodium [Moles/Vol] 140 mmol/L Normal 136-145 [facility] Comment on above: Performed By: #### L 500.4050, L100.0100 #### [facility] [address] [place], [address] T PROT 7.5 g/dL Normal 6.4-8.2 [facility] Comment on above: Performed By: #### L 500.4050, L100.0100 #### [facility] [address] [place], [place], [id number] Urea nitrogen [Mass/Vol] 12 mg/dL Normal 7-18 [facility] Comment on above: Performed By: #### L 500.4050, L100.0100 #### [facility] [address] [place], [place], [id number] Eosinophil percentageOrdered By: Yeseina Todd on 06-05-2024 Eosinophils/100 WBC (Bld) 1.2 % 0-5 [facility] Erythrocyte distribution wid th ratioOrdered By: Yeseniacintia Todd on 06-05-2024 Erythrocyte distribution width (RBC) [Ratio] 15.1 % High 11.6-14.6 [facility] Erythrocyte distribution wid th standard deviationOrdered By: Yeseniacintia Todd on 06-05-2024 Erythrocyte distribution width (RBC) [Entitic vol] 50.7 fL High 35.1-43.9 [facility] Estimated glomerular filtrat ion rate (GFR) AmericanOrdered By: Yesenia Todd on 06-05-2024 Estimated GFR (MDRD) Amer 101 mL/min >60 [facility] Comment on above: GFR Calc Glomerular filtration rate ( GFR) estimationOrdered By: Yesenia Todd on 06-05-2024 Estimated GFR (MDRD) Non-Af Amer 84 mL/min >60 [facility] Comment on above: Non- GFR Calc Glucose measurementOrdered B y: Yesenia Todd on 06-05-2024 Glucose [Mass/Vol] 93 mg/dL 74-106 [facility] Hematocrit Auto (Bld) [Volum e fraction]Ordered By: Yesenia Todd on 06-05-2024 Hematocrit (Bld) [Volume fraction] 41.7 % 37-47 [facility] Hemoglobin measurementOrdere d By: Yesenia Todd on 06-05-2024 Hemoglobin (Bld) [Mass/Vol] 13.7 g/dL 12.0-15.0 [facility] Immature granulocytes/100 WB C Auto (Bld)Ordered By: Yesenia Todd on 06-05-2024 Immature granulocytes/100 WBC (Bld) 0.600 % 0.0-0.9 [facility] Comment on above: IG% - Immature Granu locytes (promyelocytes, myelocytes and metamyelocytes) > 1% indicates that a LEFT SHIFT is Present. Laboratory - Chemistry and C hemistry - challengeOrdered By: Yesenia Todd on 06-05-2024 AST [Catalytic activity/Vol] 31 U/L 15-37 [facility] Lymphocytes Auto (Unsp spec) [#/Vol]Ordered By: Yesenia Todd on 06-05-2024 Lymphocytes (Bld) [#/Vol] 1.97 10*3/uL 0.83-4.51 [facility] Lymphocytes/100 WBC Auto (Un sp spec)Ordered By: Yesenia Todd on 06-05-2024 Lymphocytes/100 WBC (Bld) 40.7 % 19-41 [facility] MCV (mean corpuscular volume ) determinationOrdered By: Yesenia Todd on 06-05-2024 MCV (RBC) [Entitic vol] 93.5 fL 81-99 [facility] Mean corpuscular hemoglobin (MCH) determinationOrdered By: Yesenia Todd on 06-05-2024 MCH (RBC) [Entitic mass] 30.7 pg 27.0-32.0 [facility] Mean corpuscular hemoglobin concentration (MCHC) determinationOrdered By: Yesenia Todd on 06-05-2024 MCHC (RBC) [Mass/Vol] 32.9 g/dL 32-36 [facility] Mean platelet volume determi nationOrdered By: Yesenia Todd on 06-05-2024 Platelet mean volume (Bld) [Entitic vol] 10.4 fL 6.2-12.0 [facility] Monocyte percentageOrdered B y: Yesenia Todd on 06-05-2024 Monocytes/100 WBC (Bld) 6.4 % 0-10 [facility] Neutrophil percentageOrdered By: Yesenia Todd on 06-05-2024 Neutrophils/100 WBC (Bld) 50.3 % 47-70 [facility] Nucleated red blood cell per centageOrdered By: Yesenia Todd on 06-05-2024 Nucleated RBC/100 WBC (Bld) [Ratio] 0 % 0-5 [facility] Platelet countOrdered By: Jeremias Todd on 06-05-2024 Platelets (Bld) [#/Vol] 234 10*3/uL 150-450 [facility] Potassium measurementOrdered By: Yeseina Todd on 06-05-2024 Potassium [Moles/Vol] 4.1 mmol/L 3.5-5.1 [facility] RBC Auto (Bld) [#/Vol]Ordere d By: Yesenia Todd on 06-05-2024 RBC (Bld) [#/Vol] 4.46 10*6/uL 4.2-5.[address] [facility] Serum anion gap measurementO rdered By: Yesenia Todd on 06-05-2024 Anion gap [Moles/Vol] 2 mmol/L Low 5-15 [facility] Serum globulin measurementOr dered By: Yesenia Todd on 06-05-2024 Globulin (S) [Mass/Vol] 3.4 g/dL 2.2-4.2 [facility] Serum or plasma alanine hernandez otransferase (ALT) measurementOrdered By: Yesenia Todd on 06-05-2024 ALT [Catalytic activity/Vol] 47 U/L 13-56 [facility] Serum or plasma albumin saman urement (mass/volume)Ordered By: Yesenia Todd on 06-05-2024 Albumin [Mass/Vol] 4.1 g/dL 3.2-5.0 [facility] Serum or plasma alkaline nixon sphatase measurementOrdered By: Yesenia Todd on 06-05-2024 ALP [Catalytic activity/Vol] 90 U/L 45-117 [facility] Serum or plasma calcium saman urement (mass/volume)Ordered By: Yesenia Todd on 06-05-2024 Calcium [Mass/Vol] 9.7 mg/dL 8.5-10.1 [facility] Serum or plasma creatinine m easurement (mass/volume)Ordered By: Yesenia Todd on 06-05-2024 Creatinine [Mass/Vol] 0.73 mg/dL 0.55-1.02 [facility] Comment on above: The validity of the calculated GFR & GFRAA in patients over 70 years has not been determined. Clinical correlation is essential. Serum or plasma urea nitroge n measurement (mass/volume)Ordered By: Yesenia Todd on 06-05-2024 Urea nitrogen [Mass/Vol] 12 mg/dL 7-18 [facility] Sodium levelOrdered By: Vick Todd on 06-05-2024 Sodium [Moles/Vol] 140 mmol/L 136-145 [facility] Total proteinOrdered By: Yelena Todd on 06-05-2024 Protein [Mass/Vol] 7.5 g/dL 6.4-8.2 [facility] White blood cell (WBC) count Ordered By: Yesenia Todd on 06-05-2024 WBC (Bld) [#/Vol] 4.8 10*3/uL 4.4-11.0 [facility] CBC W/Diff, Automatedon 09-0 Absolute Lymph 2.07 X10 3/uL Normal 0.83-4.51 [facility] Comment on above: Performed By: #### L 500.4050, L100.0100 #### [facility] [address] [place], [address] Absolute Neut 3.8 X10 3/uL Normal 2.0-7.7 [facility] Comment on above: Performed By: #### L 500.4050, L100.0100 #### [facility] [address] [place], [address] Basophils/100 WBC (Bld) 0.3 % Normal 0-1 [facility] Comment on above: Performed By: #### L 500.4050, L100.0100 #### [facility] [address] [place], [address] Eosinophils/100 WBC (Bld) 1.4 % Normal 0-5 [facility] Comment on above: Performed By: #### L 500.4050, L100.0100 #### [facility] [address] [place], [address] Erythrocyte distribution width (RBC) [Ratio] 14.1 % Normal 11.6-14.6 [facility] Comment on above: Performed By: #### L 500.4050, L100.0100 #### [facility] [address] [place], [address] Hematocrit (Bld) [Volume fraction] 43.8 % Normal 37-47 [facility] Comment on above: Performed By: #### L 500.4050, L100.0100 #### [facility] [address] [place], [address] Hemoglobin (Bld) [Mass/Vol] 14.3 g/dL Normal 12.0-15.0 [facility] Comment on above: Performed By: #### L 500.4050, L100.0100 #### [facility] [address] [place], [address] IG% 0.500 Normal 0.0-0.9 [facility] Comment on above: Result Comment: IG% - Immature Granulocytes (promyelocytes, myelocytes and metamyelocytes) > 1% indicates that a LEFT SHIFT is Present. Performed By: #### L 500.4050, L100.0100 #### [facility] [address] [place], [address] Lymphocytes/100 WBC (Bld) 31.7 % Normal 19-41 [facility] Comment on above: Performed By: #### L 500.4050, L100.0100 #### [facility] [address] [place], [address] MCH (RBC) [Entitic mass] 30.9 pg Normal 27.0-32.0 [facility] Comment on above: Performed By: #### L 500.4050, L100.0100 #### [facility] [address] [place], [address] MCHC (RBC) [Mass/Vol] 32.6 g/dL Normal 32-36 [facility] Comment on above: Performed By: #### L 500.4050, L100.0100 #### [facility] [address] [place], [address] MCV (RBC) [Entitic vol] 94.6 fL Normal 81-99 [facility] Comment on above: Performed By: #### L 500.4050, L100.0100 #### [facility] [address] [place], [address] Monocytes/100 WBC (Bld) 8.3 % Normal 0-10 [facility] Comment on above: Performed By: #### L 500.4050, L100.0100 #### [facility] [address] [place], [address] Neutrophils/100 WBC (Bld) 57.8 % Normal 47-70 [facility] Comment on above: Performed By: #### L 500.4050, L100.0100 #### [facility] [address] [place], [address] Nucleated RBC (Bld) [#/Vol] 0 10*3/uL Normal 0-5 [facility] Comment on above: Performed By: #### L 500.4050, L100.0100 #### [facility] [address] [place], [address] Platelet mean volume (Bld) [Entitic vol] 10.6 fL Normal 6.2-12.0 [facility] Comment on above: Performed By: #### L 500.4050, L100.0100 #### [facility] [address] [place], [address] Platelets (Bld) [#/Vol] 294 10*3/uL Normal 150-450 [facility] Comment on above: Performed By: #### L 500.4050, L100.0100 #### [facility] [address] [place], [address] RBC (Bld) [#/Vol] 4.63 10*6/uL Normal 4.2-5.[address] [facility] Comment on above: Performed By: #### L 500.4050, L100.0100 #### [facility] [facility] [address] [place], [address] RDW SD 47.9 fl High 35.1-43.9 [facility] Comment on above: Performed By: #### L 500.4050, L100.0100 #### [facility] [address] [place], [address] WBC (Bld) [#/Vol] 6.5 10*3/uL Normal 4.4-11.0 [facility] Comment on above: Performed By: #### L 500.4050, L100.0100 #### [facility] [address] [place], [address] Comprehensive Metabolic Prof [facility] 03-13-2024 Albumin [Mass/Vol] 3.9 g/dL Normal 3.2-5.0 [facility] Comment on above: Performed By: #### L 500.4050, L100.0100 #### [facility] [address] [place], [address] Albumin/Globulin [Mass ratio] 1.0 {ratio} Normal 0.9-2.4 [facility] Comment on above: Performed By: #### L 500.4050, L100.0100 #### [facility] [address] [place], [address] ALK P 93 U/L Normal 45-117 [facility] Comment on above: Performed By: #### L 500.4050, L100.0100 #### [facility] [address] [place], [address] ALT [Catalytic activity/Vol] 35 U/L Normal 13-56 [facility] Comment on above: Performed By: #### L 500.4050, L100.0100 #### [facility] [address] [place], [address] AST [Catalytic activity/Vol] 18 U/L Normal 15-37 [facility] Comment on above: Performed By: #### L 500.4050, L100.0100 #### [facility] [address] [place], [address] Bilirubin [Mass/Vol] 0.50 mg/dL Normal 0.20-1.00 [facility] Comment on above: Result Comment: For patients on eltrombopag therapy, use of Dimension [place] TBIL is not recommended. Performed By: #### L 500.4050, L100.0100 #### [facility] [address] [place], [address] BUN/CRE 16.6 RATIO Normal 10-20 [facility] Comment on above: Performed By: #### L 500.4050, L100.0100 #### [facility] [address] [place], [address] CA,Total 10.1 mg/dL Normal 8.5-10.1 [facility] Comment on above: Performed By: #### L 500.4050, L100.0100 #### [facility] [address] [place], [address] Chloride [Moles/Vol] 106 mmol/L Normal 98-107 [facility] Comment on above: Performed By: #### L 500.4050, L100.0100 #### [facility] [address] [place], [address] CO2 [Moles/Vol] 28.0 mmol/L Normal 21.0-32.0 [facility] Comment on above: Performed By: #### L 500.4050, L100.0100 #### [facility] [address] [place], [address] Creatinine [Mass/Vol] 0.72 mg/dL Normal 0.55-1.02 [facility] Comment on above: Result Comment: The validity of the calculated GFR GFRAA in patients over 70 years has not been determined. Clinical correlation is essential. Performed By: #### L 500.4050, L100.0100 #### [facility] [address] [place], [address] EST GFR - AA 102 mL/min Normal >60 [facility] Comment on above: Result Comment: Afri can Iranian GFR Calc Performed By: #### L 500.4050, L100.0100 #### [facility] [address] [place], [address] GAP 7 Normal 5-15 [facility] Comment on above: Performed By: #### L 500.4050, L100.0100 #### [facility] [address] [place], [address] GFR/1.73 sq M.predicted among non-blacks MDRD (S/P/Bld) [Vol rate/Area] 85 mL/min/{1.73_m2} Normal >60 [facility] Comment on above: Result Comment: Non- GFR Calc Performed By: #### L 500.4050, L100.0100 #### [facility] [address] [place], [address] Globulin (S) [Mass/Vol] 4.0 g/dL Normal 2.2-4.2 [facility] Comment on above: Performed By: #### L 500.4050, L100.0100 #### [facility] [address] [place], [address] Glucose [Mass/Vol] 92 mg/dL Normal 74-106 [facility] Comment on above: Performed By: #### L 500.4050, L100.0100 #### [facility] [address] [place], [address] Potassium [Moles/Vol] 4.2 mmol/L Normal 3.5-5.1 [facility] Comment on above: Performed By: #### L 500.4050, L100.0100 #### [facility] [address] [place], [address] Sodium [Moles/Vol] 141 mmol/L Normal 136-145 [facility] Comment on above: Performed By: #### L 500.4050, L100.0100 #### [facility] [address] [place], [address] T PROT 7.9 g/dL Normal 6.4-8.2 [facility] Comment on above: Performed By: #### L 500.4050, L100.0100 #### [facility] [address] [place], [address] Urea nitrogen [Mass/Vol] 12 mg/dL Normal 7-18 [facility] Comment on above: Performed By: #### L 500.4050, L100.0100 #### [facility] [address] [place], [address] US BREAST LT UNILATERAL COMP LETEon 02-03-2024 US BREAST LT UNILATERAL COMPLETE [address] [address] Patient: ROMA BOSCH Phone#: : 1955 Age: 68 Gender: F Pt. Type: Out Account: [id number] [facility] Date: 02/03/2024/9:00 Family Phys: SPEEDY PHAN Charge Code: [id number] Physician: Preston Order #: [id number] Dose#: PROCEDURE: ULTRASOUND BREAST LT COMPARISON: [facility], US, BREAST LT COMPLETE, 11/11/2022, 14:32. INDICATIONS: Follow up mamm TECHNIQUE: Breast ultrasound was performed, with evaluation focusing on all four quadrants. FINDINGS: DIAGNOSTIC CATEGORY 2--BENIGN: LEFT BREAST: Simple benign-appearing cyst, anechoic echotexture, mid-breast depth, 3 o'clock position, and 3 x 3 mm size. LEFT BREAST: Simple benign-appearing cyst, anechoic echotexture, 9 o'clock position, and 7 x 3 mm size. RECOMMENDATIONS: ROUTINE MAMMOGRAM AND CLINICAL EVALUATION IN 12 MONTHS. PLEASE NOTE: A NORMAL MAMMOGRAM DOES NOT EXCLUDE THE POSSIBILITY OF BREAST CANCER. A CLINICALLY SUSPICIOUS PALPABLE LUMP SHOULD BE BIOPSIED. Dictated by: Billie Chicas MD on 02/03/2024 at 16:03 Approved by: Billie Chicas MD on 02/03/2024 at 16:10 Normal [facility] 3D MAMM BILAT SCREEN [facility] 01-26-2024 3D MAMM BILAT SCREEN [place] [address] Patient: ROMA BOSCH Phone#: : 1955 Age: 68 Gender: F Pt. Type: Out Account: [id number] Location: Ordering: [facility] Exam Date: 01/26/2024/15:01 Family Phys: SPEEDY PHAN Charge Code: [id number] Physician: Preston Order #: [id number] Dose#: PROCEDURE: BILATERAL SCREENING BREAST TOMOSYNTHESIS MAMMOGRAM WITH CAD COMPARISON: [facility], 3D BILAT SCREEN [facility], 11/11/2022, 12:59. INDICATIONS: Screening. BREAST COMPOSITION: Almost entirely fatty. FINDINGS: DIAGNOSTIC CATEGORY 0--INCOMPLETE: NEED ADDITIONAL IMAGING EVALUATION. RIGHT BREAST: No significant suspicious finding. No significant change has occurred. LEFT BREAST: ASYMMETRY visible on only the cc view, located in the central breast, at the mid-breast depth, with size of approximately 4x7 mm. This may correspond to an asymmetry on the MLO view in the mid breast. RECOMMENDATIONS: ULTRASOUND: LEFT BREAST --We will call the patient back for an ultrasound and provide an additional report. PLEASE NOTE: A NORMAL MAMMOGRAM DOES NOT EXCLUDE THE POSSIBILITY OF BREAST CANCER. A CLINICALLY SUSPICIOUS PALPABLE LUMP SHOULD BE BIOPSIED. THIS FACILITY UTILIZES A REMINDER SYSTEM TO ENSURE THAT ALL PATIENTS RECEIVE REMINDER LETTERS FOR APPOINTMENTS. THIS INCLUDES REMINDERS FOR ROUTINE MAMMOGRAMS, DIAGNOSITC MAMMOGRAMS, OR OTHER BREAST IMAGING INTERVENTIONS WHEN APPROPRIATE. THIS PATIENT WILL BE PLACED IN THE APPROPRIATE REMINDER SYSTEM. Dictated by: Helena Pimentel MD on 01/26/2024 at 18:22 Approved by: Helena Pimentel MD on 01/26/2024 at 18:36 Normal [facility] TSHon 12-17-2023 TSH Qn 1.50 m[IU]/L Normal 0.40-4.50 [facility] Comment on above: Performed By: #### 8 99 #### [facility] [address], [address] [place] [id number] Marble Finisher: Amarjit Rasmussen MD Laboratory - Chemistry and C hemistry - challengeon 12-16-2023 TSH Qn 1.50 m[IU]/L Normal 0.40 - 4.50 {mIU/L} [facility] CBC W/Diff, Automatedon 12-03 Absolute Lymph 2.15 X10 3/uL Normal 0.83-4.51 [facility] Comment on above: Performed By: #### L 500.4050, L100.0100 #### [facility] [address] [place], [address] Absolute Neut 4.2 X10 3/uL Normal 2.0-7.7 [facility] Comment on above: Performed By: #### L 500.4050, L100.0100 #### [facility] [address] [place], [address] Basophils/100 WBC (Bld) 0.3 % Normal 0-1 [facility] Comment on above: Performed By: #### L 500.4050, L100.0100 #### [facility] [address] [place], [address] Eosinophils/100 WBC (Bld) 1.6 % Normal 0-5 [facility] Comment on above: Performed By: #### L 500.4050, L100.0100 #### [facility] [address] [place], [address] Erythrocyte distribution width (RBC) [Ratio] 14.5 % Normal 11.6-14.6 [facility] Comment on above: Performed By: #### L 500.4050, L100.0100 #### [facility] [address] [place], [address] Hematocrit (Bld) [Volume fraction] 40.8 % Normal 37-47 [facility] Comment on above: Performed By: #### L 500.4050, L100.0100 #### [facility] [address] [place], [address] Hemoglobin (Bld) [Mass/Vol] 13.4 g/dL Normal 12.0-15.0 [facility] Comment on above: Performed By: #### L 500.4050, L100.0100 #### [facility] [address] [place], [address] IG% 0.700 Normal 0.0-0.9 [facility] Comment on above: Result Comment: IG% - Immature Granulocytes (promyelocytes, myelocytes and metamyelocytes) > 1% indicates that a LEFT SHIFT is Present. Performed By: #### L 500.4050, L100.0100 #### [facility] [address] [place], [address] Lymphocytes/100 WBC (Bld) 30.4 % Normal 19-41 [facility] Comment on above: Performed By: #### L 500.4050, L100.0100 #### [facility] [address] [place], [address] MCH (RBC) [Entitic mass] 30.9 pg Normal 27.0-32.0 [facility] Comment on above: Performed By: #### L 500.4050, L100.0100 #### [facility] [address] [place], [address] MCHC (RBC) [Mass/Vol] 32.8 g/dL Normal 32-36 [facility] Comment on above: Performed By: #### L 500.4050, L100.0100 #### [facility] [address] [place], [address] MCV (RBC) [Entitic vol] 94.0 fL Normal 81-99 [facility] Comment on above: Performed By: #### L 500.4050, L100.0100 #### [facility] [address] [place], [address] Monocytes/100 WBC (Bld) 7.6 % Normal 0-10 [facility] Comment on above: Performed By: #### L 500.4050, L100.0100 #### [facility] [address] [place], [address] Neutrophils/100 WBC (Bld) 59.4 % Normal 47-70 [facility] Comment on above: Performed By: #### L 500.4050, L100.0100 #### [facility] [address] [place], [address] Nucleated RBC (Bld) [#/Vol] 0 10*3/uL Normal 0-5 [facility] Comment on above: Performed By: #### L 500.4050, L100.0100 #### [facility] [address] [place], [address] Platelet mean volume (Bld) [Entitic vol] 10.3 fL Normal 6.2-12.0 [facility] Comment on above: Performed By: #### L 500.4050, L100.0100 #### [facility] [address] [place], [address] Platelets (Bld) [#/Vol] 258 10*3/uL Normal 150-450 [facility] Comment on above: Performed By: #### L 500.4050, L100.0100 #### [facility] [address] [place], [address] RBC (Bld) [#/Vol] 4.34 10*6/uL Normal 4.2-5.[address] [facility] Comment on above: Performed By: #### L 500.4050, L100.0100 #### [facility] [address] [place], [address] RDW SD 48.8 fl High 35.1-43.9 [facility] Comment on above: Performed By: #### L 500.4050, L100.0100 #### [facility] [address] [place], [address] WBC (Bld) [#/Vol] 7.1 10*3/uL Normal 4.4-11.0 [facility] Comment on above: Performed By: #### L 500.4050, L100.0100 #### [facility] [address] [place], [address] Comprehensive Metabolic Prof [facility] 12-13-2023 Albumin [Mass/Vol] 3.8 g/dL Normal 3.2-5.0 [facility] Comment on above: Order Comment: CBCD Performed By: #### L 500.4050, L100.0100 #### [facility] [address] [place], [address] Albumin/Globulin [Mass ratio] 1.0 {ratio} Normal 0.9-2.4 [facility] Comment on above: Order Comment: CBCD Performed By: #### L 500.4050, L100.0100 #### [facility] [address] [place], [address] ALK P 94 U/L Normal 45-117 [facility] Comment on above: Order Comment: CBCD Performed By: #### L 500.4050, L100.0100 #### [facility] [address] [place], [address] ALT [Catalytic activity/Vol] 32 U/L Normal 13-56 [facility] Comment on above: Order Comment: CBCD Performed By: #### L 500.4050, L100.0100 #### [facility] [address] [place], [address] AST [Catalytic activity/Vol] 22 U/L Normal 15-37 [facility] Comment on above: Order Comment: CBCD Performed By: #### L 500.4050, L100.0100 #### [facility] [address] [place], [address] Bilirubin [Mass/Vol] 0.50 mg/dL Normal 0.20-1.00 [facility] Comment on above: Order Comment: CBCD Result Comment: For patients on eltrombopag therapy, use of Dimension [place] TBIL is not recommended. Performed By: #### L 500.4050, L100.0100 #### [facility] [address] [place], [address] BUN/CRE 22.3 RATIO High 10-20 [facility] Comment on above: Order Comment: CBCD Performed By: #### L 500.4050, L100.0100 #### [facility] [address] [place], [address] CA,Total 9.7 mg/dL Normal 8.5-10.1 [facility] Comment on above: Order Comment: CBCD Performed By: #### L 500.4050, L100.0100 #### [facility] [address] [place], [address] Chloride [Moles/Vol] 109 mmol/L High 98-107 [facility] Comment on above: Order Comment: CBCD Performed By: #### L 500.4050, L100.0100 #### [facility] [address] [place], [address] CO2 [Moles/Vol] 25.0 mmol/L Normal 21.0-32.0 [facility] Comment on above: Order Comment: CBCD Performed By: #### L 500.4050, L100.0100 #### [facility] [address] [place], [address] Creatinine [Mass/Vol] 0.72 mg/dL Normal 0.55-1.02 [facility] Comment on above: Order Comment: CBCD Result Comment: The validity of the calculated GFR GFRAA in patients over 70 years has not been determined. Clinical correlation is essential. Performed By: #### L 500.4050, L100.0100 #### [facility] [address] [place], [address] EST GFR - AA 104 mL/min Normal >60 [facility] Comment on above: Order Comment: CBCD Result Comment: Afri can Iranian GFR Calc Performed By: #### L 500.4050, L100.0100 #### [facility] [address] [place], [address] GAP 4 Low 5-15 [facility] Comment on above: Order Comment: CBCD Performed By: #### L 500.4050, L100.0100 #### [facility] [address] [place], [address] GFR/1.73 sq M.predicted among non-blacks MDRD (S/P/Bld) [Vol rate/Area] 86 mL/min/{1.73_m2} Normal >60 [facility] Comment on above: Order Comment: CBCD Result Comment: Non- GFR Calc Performed By: #### L 500.4050, L100.0100 #### [facility] [address] [place], [address] Globulin (S) [Mass/Vol] 3.7 g/dL Normal 2.2-4.2 [facility] Comment on above: Order Comment: CBCD Performed By: #### L 500.4050, L100.0100 #### [facility] [address] [place], [address] Glucose [Mass/Vol] 94 mg/dL Normal 74-106 [facility] Comment on above: Order Comment: CBCD Performed By: #### L 500.4050, L100.0100 #### [facility] [address] [place], [address] Potassium [Moles/Vol] 4.1 mmol/L Normal 3.5-5.1 [facility] Comment on above: Order Comment: CBCD Performed By: #### L 500.4050, L100.0100 #### [facility] [address] [place], [address] Sodium [Moles/Vol] 138 mmol/L Normal 136-145 [facility] Comment on above: Order Comment: CBCD Performed By: #### L 500.4050, L100.0100 #### [facility] [address] [place], [address] T PROT 7.5 g/dL Normal 6.4-8.2 [facility] Comment on above: Order Comment: CBCD Performed By: #### L 500.4050, L100.0100 #### [facility] [address] [place], [address] Urea nitrogen [Mass/Vol] 16 mg/dL Normal 7-18 [facility] Comment on above: Order Comment: CBCD Performed By: #### L 500.4050, L100.0100 #### [facility] [address] [place], [address] Absolute lymphocyte countOrd ered By: Yeseniacintia Todd on 10-18-2023 Lymphocytes Auto (Unsp spec) [#/Vol] 2.21 10*3/uL 0.83-4.51 [facility] Automated lymphocyte count a s percentage of total leukocytesOrdered By: Yesenia Todd on 10-18-2023 Lymphocytes/100 WBC Auto (Unsp spec) 34.7 % 19-41 [facility] Basophil percentageOrdered B y: Yesenia Sonmichelle on 10-18-2023 Basophils/100 WBC (Bld) 0.5 % 0-1 [facility] Bilirubin [Mass/Vol] 0.80 mg/dL 0.20-1.00 [facility] Comment on above: For patients on eltr ombopag therapy, use of Dimension [place] TBIL is not recommended. Chloride [Moles/Vol] 107 mmol/L 98-107 [facility] Eosinophils/100 WBC (Bld) 2.0 % 0-5 [facility] Glucose [Mass/Vol] 81 mg/dL 74-106 [facility] Hemoglobin (Bld) [Mass/Vol] 14.7 g/dL 12.0-15.0 [facility] Monocytes/100 WBC (Bld) 6.6 % 0-10 [facility] Neutrophils (Bld) [#/Vol] 3.5 10*3/uL 2.0-7.7 [facility] Neutrophils/100 WBC (Bld) 55.7 % 47-70 [facility] Potassium [Moles/Vol] 4.1 mmol/L 3.5-5.1 [facility] Protein [Mass/Vol] 8.1 g/dL 6.4-8.2 [facility] Sodium [Moles/Vol] 140 mmol/L 136-145 [facility] WBC (Bld) [#/Vol] 6.4 10*3/uL 4.4-11.0 [facility] CBC W/Diff, Automatedon 10-03 Absolute Lymph 2.21 X10 3/uL Normal 0.83-4.51 [facility] Comment on above: Performed By: #### L 100.0100, L500.4050 #### [facility] [address] [place], [address] Absolute Neut 3.5 X10 3/uL Normal 2.0-7.7 [facility] Comment on above: Performed By: #### L 100.0100, L500.4050 #### [facility] [address] [place], [address] Basophils/100 WBC (Bld) 0.5 % Normal 0-1 [facility] Comment on above: Performed By: #### L 100.0100, L500.4050 #### [facility] [address] [place], [address] Eosinophils/100 WBC (Bld) 2.0 % Normal 0-5 [facility] Comment on above: Performed By: #### L 100.0100, L500.4050 #### [facility] [address] [place], [address] Erythrocyte distribution width (RBC) [Ratio] 15.0 % High 11.6-14.6 [facility] Comment on above: Performed By: #### L 100.0100, L500.4050 #### [facility] [address] [place], [address] Hematocrit (Bld) [Volume fraction] 44.5 % Normal 37-47 [facility] Comment on above: Performed By: #### L 100.0100, L500.4050 #### [facility] [address] [place], [address] Hemoglobin (Bld) [Mass/Vol] 14.7 g/dL Normal 12.0-15.0 [facility] Comment on above: Performed By: #### L 100.0100, L500.4050 #### [facility] [address] [place], [address] IG% 0.500 Normal 0.0-0.9 [facility] Comment on above: Result Comment: IG% - Immature Granulocytes (promyelocytes, myelocytes and metamyelocytes) > 1% indicates that a LEFT SHIFT is Present. Performed By: #### L 100.0100, L500.4050 #### [facility] [address] [place], [address] Lymphocytes/100 WBC (Bld) 34.7 % Normal 19-41 [facility] Comment on above: Performed By: #### L 100.0100, L500.4050 #### [facility] [address] [place], [address] MCH (RBC) [Entitic mass] 30.9 pg Normal 27.0-32.0 [facility] Comment on above: Performed By: #### L 100.0100, L500.4050 #### [facility] [address] [place], [address] MCHC (RBC) [Mass/Vol] 33.0 g/dL Normal 32-36 [facility] Comment on above: Performed By: #### L 100.0100, L500.4050 #### [facility] [address] [place], [address] MCV (RBC) [Entitic vol] 93.5 fL Normal 81-99 [facility] Comment on above: Performed By: #### L 100.0100, L500.4050 #### [facility] [address] [place], [address] Monocytes/100 WBC (Bld) 6.6 % Normal 0-10 [facility] Comment on above: Performed By: #### L 100.0100, L500.4050 #### [facility] [address] [place], [address] Neutrophils/100 WBC (Bld) 55.7 % Normal 47-70 [facility] Comment on above: Performed By: #### L 100.0100, L500.4050 #### [facility] [address] [place], [address] Nucleated RBC (Bld) [#/Vol] 0 10*3/uL Normal 0-5 [facility] Comment on above: Performed By: #### L 100.0100, L500.4050 #### [facility] [address] [place], [address] Platelet mean volume (Bld) [Entitic vol] 10.4 fL Normal 6.2-12.0 [facility] Comment on above: Performed By: #### L 100.0100, L500.4050 #### [facility] [address] [place], [address] Platelets (Bld) [#/Vol] 273 10*3/uL Normal 150-450 [facility] Comment on above: Performed By: #### L 100.0100, L500.4050 #### [facility] [address] [place], [address] RBC (Bld) [#/Vol] 4.76 10*6/uL Normal 4.2-5.[address] [facility] Comment on above: Performed By: #### L 100.0100, L500.4050 #### [facility] [address] [place], [address] RDW SD 50.4 fl High 35.1-43.9 [facility] Comment on above: Performed By: #### L 100.0100, L500.4050 #### [facility] [address] [place], [address] WBC (Bld) [#/Vol] 6.4 10*3/uL Normal 4.4-11.0 [facility] Comment on above: Performed By: #### L 100.0100, L500.4050 #### [facility] [address] [place], [address] Comprehensive Metabolic Prof ilon 10-18-2023 Albumin [Mass/Vol] 4.2 g/dL Normal 3.2-5.0 [facility] Comment on above: Performed By: #### L 100.0100, L500.4050 #### [facility] [address] [place], [address] Albumin/Globulin [Mass ratio] 1.1 {ratio} Normal 0.9-2.4 [facility] Comment on above: Performed By: #### L 100.0100, L500.4050 #### [facility] [address] [place], [address] ALK P 95 U/L Normal 45-117 [facility] Comment on above: Performed By: #### L 100.0100, L500.4050 #### [facility] [address] [place], [address] ALT [Catalytic activity/Vol] 30 U/L Normal 13-56 [facility] Comment on above: Performed By: #### L 100.0100, L500.4050 #### [facility] [address] [place], [address] AST [Catalytic activity/Vol] 20 U/L Normal 15-37 [facility] Comment on above: Performed By: #### L 100.0100, L500.4050 #### [facility] [address] [place], [address] Bilirubin [Mass/Vol] 0.80 mg/dL Normal 0.20-1.00 [facility] Comment on above: Result Comment: For patients on eltrombopag therapy, use of Dimension Langeloth TBIL is not recommended. Performed By: #### L 100.0100, L500.4050 #### [facility] [address] [place], [address] BUN/CRE 18.8 RATIO Normal 10-20 [facility] Comment on above: Performed By: #### L 100.0100, L500.4050 #### [facility] [address] [place], [address] CA,Total 10.0 mg/dL Normal 8.5-10.1 [facility] Comment on above: Performed By: #### L 100.0100, L500.4050 #### [facility] [address] [place], [address] Chloride [Moles/Vol] 107 mmol/L Normal 98-107 [facility] Comment on above: Performed By: #### L 100.0100, L500.4050 #### [facility] [address] [place], [address] CO2 [Moles/Vol] 28.0 mmol/L Normal 21.0-32.0 [facility] Comment on above: Performed By: #### L 100.0100, L500.4050 #### [facility] [address] [place], [address] Creatinine [Mass/Vol] 0.85 mg/dL Normal 0.55-1.02 [facility] Comment on above: Result Comment: The validity of the calculated GFR GFRAA in patients over 70 years has not been determined. Clinical correlation is essential. Performed By: #### L 100.0100, L500.4050 #### [facility] [address] [place], [address] EST GFR - AA 86 mL/min Normal >60 [facility] Comment on above: Result Comment: Afri can Iranian GFR Calc Performed By: #### L 100.0100, L500.4050 #### [facility] [address] [place], [address] GAP 5 Normal 5-15 [facility] Comment on above: Performed By: #### L 100.0100, L500.4050 #### [facility] [address] [place], [address] GFR/1.73 sq M.predicted among non-blacks MDRD (S/P/Bld) [Vol rate/Area] 71 mL/min/{1.73_m2} Normal >60 [facility] Comment on above: Result Comment: Non- GFR Calc Performed By: #### L 100.0100, L500.4050 #### [facility] [address] [place], [address] Globulin (S) [Mass/Vol] 3.9 g/dL Normal 2.2-4.2 [facility] Comment on above: Performed By: #### L 100.0100, L500.4050 #### [facility] [address] [place], [address] Glucose [Mass/Vol] 81 mg/dL Normal 74-106 [facility] Comment on above: Performed By: #### L 100.0100, L500.4050 #### [facility] [address] [place], [address] Potassium [Moles/Vol] 4.1 mmol/L Normal 3.5-5.1 [facility] Comment on above: Performed By: #### L 100.0100, L500.4050 #### [facility] [address] [place], [address] Sodium [Moles/Vol] 140 mmol/L Normal 136-145 [facility] Comment on above: Performed By: #### L 100.0100, L500.4050 #### [facility] [address] [place] [place], [address] T PROT 8.1 g/dL Normal 6.4-8.2 [facility] Comment on above: Performed By: #### L 100.0100, L500.4050 #### [facility] [address] [place], [place], [address] Urea nitrogen [Mass/Vol] 16 mg/dL Normal 7-18 [facility] Comment on above: Performed By: #### L 100.0100, L500.4050 #### [facility] [address] [place], [place], [address] Determination of erythrocyte mean corpuscular volume (MCV)Ordered By: Yesenia Todd on 10-18-2023 MCV (RBC) [Entitic vol] 93.5 fL 81-99 [facility] Erythrocyte distribution wid th ratioOrdered By: [facility] Perez on 10-18-2023 Erythrocyte distribution width (RBC) [Ratio] 15.0 % 11.6-14.6 [facility] Erythrocyte distribution wid th standard deviationOrdered By: [facility]2023 Erythrocyte distribution width (RBC) [Entitic vol] 50.4 fL 35.1-43.9 [facility] Hematocrit Auto (Bld) [Volum e fraction]Ordered By: [facility] Perez on 10-18-2023 Hematocrit (Bld) [Volume fraction] 44.5 % 37-47 [facility] Immature granulocytes/100 WB C Auto (Bld)Ordered By: [facility] Perez on 10-18-2023 Immature granulocytes/100 WBC (Bld) 0.500 % 0.0-0.9 [facility] Comment on above: IG% - Immature Granu locytes (promyelocytes, myelocytes and metamyelocytes) > 1% indicates that a LEFT SHIFT is Present. Laboratory - Chemistry and C hemistry - challengeOrdered By: Yesenia Todd on 10-18-2023 Albumin/Globulin [Mass ratio] 1.1 {ratio} 0.9-2.4 [facility] ALP [Catalytic activity/Vol] 95 U/L 45-117 [facility] ALT [Catalytic activity/Vol] 30 U/L 13-56 [facility] CO2 [Moles/Vol] 28.0 mmol/L 21.0-32.0 [facility] Globulin (S) [Mass/Vol] 3.9 g/dL 2.2-4.2 [facility] Urea nitrogen/Creatinine [Mass ratio] 18.8 mg/mg 10-20 [facility] - Hematology and Cell countsOrdered By: Yesenia Todd on 10-18-2023 MCH (RBC) [Entitic mass] 30.9 pg 27.0-32.0 [facility] MCHC (RBC) [Mass/Vol] 33.0 g/dL 32-36 [facility] Nucleated RBC/100 WBC (Bld) [Ratio] 0 % 0-5 [facility] Platelet mean volume (Bld) [Entitic vol] 10.4 fL 6.2-12.0 [facility] Platelets (Bld) [#/Vol] 273 10*3/uL 150-450 [facility] No Panel InformationOrdered By: Yesenia Todd on 10-18-2023 Estimated GFR (MDRD) Amer 86 mL/min >60 [facility] Comment on above: GFR Calc Estimated GFR (MDRD) Non-Af Amer 71 mL/min >60 [facility] Comment on above: Non- GFR Calc RBC Auto (Bld) [#/Vol]Ordere d By: Yesenia Todd on 10-18-2023 RBC (Bld) [#/Vol] 4.76 10*6/uL 4.2-5.[address] [facility] Serum or plasma calcium saman urement (mass/volume)Ordered By: Yesenia Todd on 10-18-2023 Calcium [Mass/Vol] 10.0 mg/dL 8.5-10.1 [facility] Serum or plasma creatinine m easurement (mass/volume)Ordered By: Yesenia Todd on 10-18-2023 Creatinine [Mass/Vol] 0.85 mg/dL 0.55-1.02 [facility] Comment on above: The validity of the calculated GFR & GFRAA in patients over 70 years has not been determined. Clinical correlation is essential. Serum or plasma urea nitroge n measurement (mass/volume)Ordered By: Yesenia Todd on 10-18-2023 Urea nitrogen [Mass/Vol] 16 mg/dL 7-18 [facility] Thin prep Papanicolaou smear with manual screeningOrdered By: Yesenia Todd on 10-18-2023 Thin prep Papanicolaou smear with manual screening 4.2 g/dL 3.2-5.0 [facility] Thin prep Papanicolaou smear with manual screening 20 U/L 15-37 [facility] Thin prep Papanicolaou smear with manual screening 5 5-15 [facility] Absolute lymphocyte countOrd ered By: Yeseniacintia Todd on 08-23-2023 Lymphocytes Auto (Unsp spec) [#/Vol] 2.03 10*3/uL 0.83-4.51 [facility] Automated lymphocyte count a s percentage of total leukocytesOrdered By: Yesenia Todd on 08-23-2023 Lymphocytes/100 WBC Auto (Unsp spec) 31.3 % 19-41 [facility] Basophil percentageOrdered B y: Yesenia Todd on 08-23-2023 Basophils/100 WBC (Bld) 0.3 % 0-1 [facility] Bilirubin [Mass/Vol] 0.50 mg/dL 0.20-1.00 [facility] Comment on above: For patients on eltr ombopag therapy, use of Dimension [place]angel[place] TBIL is not recommended. Chloride [Moles/Vol] 111 mmol/L 98-107 [facility] Eosinophils/100 WBC (Bld) 1.2 % 0-5 [facility] Glucose [Mass/Vol] 109 mg/dL 74-106 [facility] Comment on above: Fasting Glucose resu lt from 100 to 125 mg/dL suggests IMPAIRED HOMEOSTASIS per A.D.A. criteria. Hemoglobin (Bld) [Mass/Vol] 13.8 g/dL 12.0-15.0 [facility] Monocytes/100 WBC (Bld) 6.9 % 0-10 [facility] Neutrophils (Bld) [#/Vol] 3.9 10*3/uL 2.0-7.7 [facility] Neutrophils/100 WBC (Bld) 59.8 % 47-70 [facility] Potassium [Moles/Vol] 3.9 mmol/L 3.5-5.1 [facility] Protein [Mass/Vol] 7.8 g/dL 6.4-8.2 [facility] Sodium [Moles/Vol] 140 mmol/L 136-145 [facility] WBC (Bld) [#/Vol] 6.5 10*3/uL 4.4-11.0 [facility] Determination of erythrocyte mean corpuscular volume (MCV)Ordered By: Yesenia Todd on 08-23-2023 MCV (RBC) [Entitic vol] 91.0 fL 81-99 [facility] Erythrocyte distribution wid th ratioOrdered By: Yesenia Todd on 08-23-2023 Erythrocyte distribution width (RBC) [Ratio] 14.6 % 11.6-14.6 [facility] Erythrocyte distribution wid th standard deviationOrdered By: [facility] Perez on 08-23-2023 Erythrocyte distribution width (RBC) [Entitic vol] 47.4 fL 35.1-43.9 [facility] Hematocrit Auto (Bld) [Volum e fraction]Ordered By: Yesenia Todd on 08-23-2023 Hematocrit (Bld) [Volume fraction] 42.3 % 37-47 [facility] Immature granulocytes/100 WB C Auto (Bld)Ordered By: Yesenia Todd on 08-23-2023 Immature granulocytes/100 WBC (Bld) 0.500 % 0.0-0.9 [facility] Comment on above: IG% - Immature Granu locytes (promyelocytes, myelocytes and metamyelocytes) > 1% indicates that a LEFT SHIFT is Present. Laboratory - Chemistry and C hemistry - challengeOrdered By: Yesenia Todd on 08-23-2023 Albumin/Globulin [Mass ratio] 1.1 {ratio} 0.9-2.4 [facility] ALP [Catalytic activity/Vol] 94 U/L 45-117 [facility] ALT [Catalytic activity/Vol] 32 U/L 13-56 [facility] CO2 [Moles/Vol] 25.0 mmol/L 21.0-32.0 [facility] Globulin (S) [Mass/Vol] 3.8 g/dL 2.2-4.2 [facility] Urea nitrogen/Creatinine [Mass ratio] 18.8 mg/mg 10-20 [facility] - Hematology and Cell countsOrdered By: Yesenia Todd on 08-23-2023 MCH (RBC) [Entitic mass] 29.7 pg 27.0-32.0 [facility] MCHC (RBC) [Mass/Vol] 32.6 g/dL 32-36 [facility] Nucleated RBC/100 WBC (Bld) [Ratio] 0 % 0-5 [facility] Platelet mean volume (Bld) [Entitic vol] 10.9 fL 6.2-12.0 [facility] Platelets (Bld) [#/Vol] 263 10*3/uL 150-450 [facility] No Panel InformationOrdered By: Yesenia Todd on 08-23-2023 Estimated GFR (MDRD) Amer 109 mL/min >60 [facility] Comment on above: GFR Calc Estimated GFR (MDRD) Non-Af Amer 90 mL/min >60 [facility] Comment on above: Non- GFR Calc RBC Auto (Bld) [#/Vol]Ordere d By: Yesenia Todd on 08-23-2023 RBC (Bld) [#/Vol] 4.65 10*6/uL 4.2-5.[address] [facility] Serum or plasma calcium saman urement (mass/volume)Ordered By: Yesenia Todd on 08-23-2023 Calcium [Mass/Vol] 9.7 mg/dL 8.5-10.1 [facility] Serum or plasma creatinine m easurement (mass/volume)Ordered By: Yesenia Todd on 08-23-2023 Creatinine [Mass/Vol] 0.69 mg/dL 0.55-1.02 [facility] Comment on above: The validity of the calculated GFR & GFRAA in patients over 70 years has not been determined. Clinical correlation is essential. Serum or plasma urea nitroge n measurement (mass/volume)Ordered By: Yesenia Todd on 08-23-2023 Urea nitrogen [Mass/Vol] 13 mg/dL 7-18 [facility] Thin prep Papanicolaou smear with manual screeningOrdered By: Yesenia Todd on 08-23-2023 Thin prep Papanicolaou smear with manual screening 4.0 g/dL 3.2-5.0 [facility] Thin prep Papanicolaou smear with manual screening 20 U/L 15-37 [facility] Thin prep Papanicolaou smear with manual screening 4 5-15 [facility] TSHon 08-20-2023 TSH Qn 0.07 m[IU]/L Low 0.40-4.50 [facility] Comment on above: Performed By: #### [id number] #### [facility] [address], [address] [place] [address] Marble Finisher: Amarjit Rasmussen MD Laboratory - Chemistry and C hemistry - challengeon 08-19-2023 TSH Qn 0.07 m[IU]/L Abnormal 0.40 - 4.50 {mIU/L} [facility], [facility]. Absolute lymphocyte countOrd ered By: Yesenia Todd on 06-07-2023 Lymphocytes Auto (Unsp spec) [#/Vol] 2.63 10*3/uL 0.83-4.51 [facility] Basophil percentageOrdered B y: Yesenia Todd on 06-07-2023 Basophils/100 WBC (Bld) 0.2 % 0-1 [facility] Bilirubin [Mass/Vol] 0.50 mg/dL 0.20-1.00 [facility] Comment on above: For patients on eltr ombopag therapy, use of Dimension [place] TBIL is not recommended. Chloride [Moles/Vol] 109 mmol/L 98-107 [facility] Eosinophils/100 WBC (Bld) 1.5 % 0-5 [facility] Glucose [Mass/Vol] 94 mg/dL 74-106 [facility] Neutrophils (Bld) [#/Vol] 2.9 10*3/uL 2.0-7.7 [facility] Neutrophils/100 WBC (Bld) 47.4 % 47-70 [facility] Potassium [Moles/Vol] 4.3 mmol/L 3.5-5.1 [facility] Protein [Mass/Vol] 7.8 g/dL 6.4-8.2 [facility] Sodium [Moles/Vol] 141 mmol/L 136-145 [facility] WBC (Bld) [#/Vol] 6.2 10*3/uL 4.4-11.0 [facility] Blood erythrocytes count (nu mber/volume)Ordered By: Yesenia Todd on 06-07-2023 RBC (Bld) [#/Vol] 5.14 10*6/uL 4.2-5.[address] [facility] Blood hemoglobin measurement (mass/volume)Ordered By: Yesenia Todd on 06-07-2023 Hemoglobin (Bld) [Mass/Vol] 14.6 g/dL 12.0-15.0 [facility] Blood lymphocytes/100 leukoc ytesOrdered By: Yesenia Todd on 06-07-2023 Lymphocytes/100 WBC (Bld) 42.8 % 19-41 [facility] Blood monocytes/100 leukocyt esOrdered By: Yesenia Todd on 06-07-2023 Monocytes/100 WBC (Bld) 7.8 % 0-10 [facility] Blood platelet mean volumeOr dered By: Yesenia Todd on 06-07-2023 Platelet mean volume (Bld) [Entitic vol] 11.5 fL 6.2-12.0 [facility] Determination of erythrocyte mean corpuscular volume (MCV)Ordered By: Yesenia Todd on 06-07-2023 MCV (RBC) [Entitic vol] 88.9 fL 81-99 [facility] Hematocrit Auto (Bld) [Volum e fraction]Ordered By: Yesenia Todd on 06-07-2023 Hematocrit (Bld) [Volume fraction] 45.7 % 37-47 [facility] - Chemistry and C hemistry - challengeOrdered By: Yesenia Todd on 06-07-2023 ALP [Catalytic activity/Vol] 86 U/L 45-117 [facility] ALT [Catalytic activity/Vol] 28 U/L 13-56 [facility] CO2 [Moles/Vol] 27.0 mmol/L 21.0-32.0 [facility] Globulin (S) [Mass/Vol] 3.9 g/dL 2.2-4.2 [facility] Urea nitrogen/Creatinine [Mass ratio] 20.0 mg/mg 10-20 [facility] - Hematology and Cell countsOrdered By: Yesenia Todd on 06-07-2023 Erythrocyte distribution width (RBC) [Entitic vol] 44.9 fL 35.1-43.9 [facility] Erythrocyte distribution width (RBC) [Ratio] 13.8 % 11.6-14.6 [facility] Immature granulocytes/100 WBC (Bld) 0.300 % 0.0-0.9 [facility] Comment on above: IG% - Immature Granu locytes (promyelocytes, myelocytes and metamyelocytes) > 1% indicates that a LEFT SHIFT is Present. MCH (RBC) [Entitic mass] 28.4 pg 27.0-32.0 [facility] Nucleated RBC/100 WBC (Bld) [Ratio] 0 % 0-5 [facility] MCHC Auto (RBC) [Mass/Vol]Or dered By: Yesenia Todd on 06-07-2023 MCHC (RBC) [Mass/Vol] 31.9 g/dL 32-36 [facility] No Panel InformationOrdered By: Yesenia Todd on 06-07-2023 Estimated GFR (MDRD) Amer 107 mL/min >60 [facility] Comment on above: GFR Calc Estimated GFR (MDRD) Non-Af Amer 89 mL/min >60 [facility] Comment on above: Non- GFR Calc Platelets bldOrdered By: Yelena Todd on 06-07-2023 Platelets (Bld) [#/Vol] 273 10*3/uL 150-450 [facility] Serum or plasma albumin saman urement (mass/volume)Ordered By: Yesenia Todd on 06-07-2023 Albumin [Mass/Vol] 3.9 g/dL 3.2-5.0 [facility] Serum or plasma albumin/glob ulin mass ratioOrdered By: Yesenia Todd on 06-07-2023 Albumin/Globulin [Mass ratio] 1.0 {ratio} 0.9-2.4 [facility] Serum or plasma calcium saman urement (mass/volume)Ordered By: Yesenia Todd on 06-07-2023 Calcium [Mass/Vol] 10.1 mg/dL 8.5-10.1 [facility] Serum or plasma creatinine m easurement (mass/volume)Ordered By: Yesenia Todd on 06-07-2023 Creatinine [Mass/Vol] 0.70 mg/dL 0.55-1.02 [facility] Comment on above: The validity of the calculated GFR & GFRAA in patients over 70 years has not been determined. Clinical correlation is essential. Serum or plasma urea nitroge n measurement (mass/volume)Ordered By: Yesenia Todd on 06-07-2023 Urea nitrogen [Mass/Vol] 14 mg/dL 7-18 [facility] Thin prep Papanicolaou smear with manual screeningOrdered By: Yesenia Todd on 06-07-2023 Thin prep Papanicolaou smear with manual screening 14 U/L 15-37 [facility] Thin prep Papanicolaou smear with manual screening 5 5-15 [facility] TSHon 05-22-2023 TSH Qn 0.04 m[IU]/L Low 0.40-4.50 [facility] Comment on above: Performed By: #### 8 [id number] #### [facility] [address], [address] [place] [address] [employer] Finisher: Amarjit Rasmussen MD Laboratory - Chemistry and C hemistry - challengeon 05-21-2023 TSH Qn 0.04 m[IU]/L Abnormal 0.40 - 4.50 {mIU/L} [facility] Absolute lymphocyte countOrd ered By: Yesenia Todd on 03-29-2023 Lymphocytes Auto (Unsp spec) [#/Vol] 2.21 10*3/uL 0.83-4.51 [facility] Basophil percentageOrdered B y: Yesenia Todd on 03-29-2023 Basophils/100 WBC (Bld) 0.4 % 0-1 [facility] Bilirubin [Mass/Vol] 0.60 mg/dL 0.20-1.00 [facility] Comment on above: For patients on eltr ombopag therapy, use of Dimension [place] TBIL is not recommended. Chloride [Moles/Vol] 109 mmol/L 98-107 [facility] Eosinophils/100 WBC (Bld) 1.1 % 0-5 [facility] Glucose [Mass/Vol] 102 mg/dL 74-106 [facility] Comment on above: Fasting Glucose resu lt from 100 to 125 mg/dL suggests IMPAIRED HOMEOSTASIS per A.D.A. criteria. Neutrophils (Bld) [#/Vol] 2.8 10*3/uL 2.0-7.7 [facility] Neutrophils/100 WBC (Bld) 49.9 % 47-70 [facility] Potassium [Moles/Vol] 4.0 mmol/L 3.5-5.1 [facility] Protein [Mass/Vol] 8.0 g/dL 6.4-8.2 [facility] Sodium [Moles/Vol] 140 mmol/L 136-145 [facility] WBC (Bld) [#/Vol] 5.7 10*3/uL 4.4-11.0 [facility] Bilirubin Test strip Ql (U)O rdered By: Yesenia Todd on 03-29-2023 Bilirubin Ql (U) Negative Negative [facility] Blood erythrocytes count (nu mber/volume)Ordered By: Yesenia Todd on 03-29-2023 RBC (Bld) [#/Vol] 4.89 10*6/uL 4.2-5.[address] [facility] Blood hemoglobin measurement (mass/volume)Ordered By: Yesenia Todd on 03-29-2023 Hemoglobin (Bld) [Mass/Vol] 14.0 g/dL 12.0-15.0 [facility] Blood lymphocytes/100 leukoc ytesOrdered By: Yesenia Todd on 03-29-2023 Lymphocytes/100 WBC (Bld) 39.0 % 19-41 [facility] Blood monocytes/100 leukocyt esOrdered By: Yesenia Todd on 03-29-2023 Monocytes/100 WBC (Bld) 9.2 % 0-10 [facility] Blood platelet mean volumeOr dered By: Yesenia Todd on 03-29-2023 Platelet mean volume (Bld) [Entitic vol] 11.2 fL 6.2-12.0 [facility] Determination of erythrocyte mean corpuscular volume (MCV)Ordered By: Yesenia Todd on 03-29-2023 MCV (RBC) [Entitic vol] 88.8 fL 81-99 [facility] Hematocrit Auto (Bld) [Volum e fraction]Ordered By: Yesenia Todd on 03-29-2023 Hematocrit (Bld) [Volume fraction] 43.4 % 37-47 [facility] Ketones Test strip Ql (U)Ord ered By: Yesenia Todd on 03-29-2023 Ketones Ql (U) Negative Negative [facility] Laboratory - Chemistry and C hemistry - challengeOrdered By: Yesenia Todd on 03-29-2023 ALP [Catalytic activity/Vol] 80 U/L 45-117 [facility] ALT [Catalytic activity/Vol] 55 U/L 13-56 [facility] CO2 [Moles/Vol] 27.0 mmol/L 21.0-32.0 [facility] Globulin (S) [Mass/Vol] 4.1 g/dL 2.2-4.2 [facility] Urea nitrogen/Creatinine [Mass ratio] 20.4 mg/mg 10-20 [facility] - Hematology and Cell countsOrdered By: Yesenia Todd on 03-29-2023 Erythrocyte distribution width (RBC) [Entitic vol] 43.6 fL 35.1-43.9 [facility] Erythrocyte distribution width (RBC) [Ratio] 13.4 % 11.6-14.6 [facility] Immature granulocytes/100 WBC (Bld) 0.400 % 0.0-0.9 [facility] Comment on above: IG% - Immature Granu locytes (promyelocytes, myelocytes and metamyelocytes) > 1% indicates that a LEFT SHIFT is Present. MCH (RBC) [Entitic mass] 28.6 pg 27.0-32.0 [facility] Nucleated RBC/100 WBC (Bld) [Ratio] 0 % 0-5 [facility] MCHC Auto (RBC) [Mass/Vol]Or dered By: Yesenia Todd on 03-29-2023 MCHC (RBC) [Mass/Vol] 32.3 g/dL 32-36 [facility] Nitrite Test strip Ql (U)Ord ered By: Yesenia Todd on 03-29-2023 Nitrite Ql (U) Negative Negative [facility] No Panel InformationOrdered By: Yesenia Todd on 03-29-2023 Estimated GFR (MDRD) Amer 109 mL/min >60 [facility] Comment on above: GFR Calc Estimated GFR (MDRD) Non-Af Amer 90 mL/min >60 [facility] Comment on above: Non- GFR Calc Hepatitis B Surface Antigen Non-Reactive Nonreactive [facility] Hepatitis C Antibody Non-Reactive Nonreactive [facility] Comment on above: Non Reactive: < 0.8 Equivocal: >/= 0.8 to < 1.0 Reactive: >/= 1.0The CDC recommends that a reactive/equivocal HCV antibody result be followed up by the HCV Nucleic Acid Amplificationtest ([id number]) Miscellaneous Test Comment MAILED SPECIMEN [facility] Platelets bldOrdered By: Yelena Todd on 03-29-2023 Platelets (Bld) [#/Vol] 263 10*3/uL 150-450 [facility] Protein Test strip Ql (U)Ord ered By: Yesenia Todd on 03-29-2023 Protein Ql (U) Negative Negative [facility] Serum hepatitis B virus surf caroline antibody IgG detectionOrdered By: Yesenia Todd on 03-29-2023 HBV surface IgG Ql (S) Non-Reactive [facility] Comment on above: Non Reactive: Incons istent with immunity less than <10 mIU/mL Reactive: Consistent with immunity greater than or equal to 10 mIU/mL Serum or plasma albumin saman urement (mass/volume)Ordered By: Yesenia Todd on 03-29-2023 Albumin [Mass/Vol] 3.9 g/dL 3.2-5.0 [facility] Serum or plasma albumin/glob ulin mass ratioOrdered By: Yesenia Todd on 03-29-2023 Albumin/Globulin [Mass ratio] 1.0 {ratio} 0.9-2.4 [facility] Serum or plasma calcium saman urement (mass/volume)Ordered By: Yesenia Todd on 03-29-2023 Calcium [Mass/Vol] 9.8 mg/dL 8.5-10.1 [facility] Serum or plasma creatinine m easurement (mass/volume)Ordered By: Yesenia Todd on 03-29-2023 Creatinine [Mass/Vol] 0.69 mg/dL 0.55-1.02 [facility] Comment on above: The validity of the calculated GFR & GFRAA in patients over 70 years has not been determined. Clinical correlation is essential. Serum or plasma urea nitroge n measurement (mass/volume)Ordered By: Yesenia Todd on 03-29-2023 Urea nitrogen [Mass/Vol] 14 mg/dL 7-18 [facility] Thin prep Papanicolaou smear with manual screeningOrdered By: Yesenia Todd on 03-29-2023 Thin prep Papanicolaou smear with manual screening 25 U/L 15-37 [facility] Thin prep Papanicolaou smear with manual screening 4 5-15 [facility] Urine blood detectionOrdered By: Yesenia Todd on 03-29-2023 RBC Ql (U) Negative Negative [facility] Urine clarityOrdered By: Yelena Todd on 03-29-2023 Clarity (U) Clear Clear [facility] Urine color determinationOrd ered By: Yesenia Todd on 03-29-2023 Color (U) Yellow Yellow [facility] Urine creatinine measurement (mass/volume)Ordered By: Yesenia Todd on 03-29-2023 Creatinine (U) [Mass/Vol] 43.40 mg/dL NO RANGE EST. [facility] Urine glucose detectionOrder ed By: Yesenia Todd on 03-29-2023 Glucose Ql (U) Normal mg/dl Normal [facility] Urine leukocyte esterase det ection by dipstickOrdered By: Yesenia Todd on 03-29-2023 Leukocyte esterase Test strip Ql (U) Negative Negative [facility] Urine pHOrdered By: Yesenia grewal on 03-29-2023 pH (U) 7.0 [pH] 5.0 - 8.0 [facility] Urine protein measurement (m ass/volume)Ordered By: Yesenia Todd on 03-29-2023 Protein (U) [Mass/Vol] 6.0 mg/dL 0.0-11.8 [facility] Urine protein/creatinine mas s ratioOrdered By: Yesenia Todd on 03-29-2023 Protein/Creatinine (U) [Mass ratio] 138 mg/g CRE 0-200 [facility] Urine specific gravity measu rementOrdered By: Yesenia Todd on 03-29-2023 Specific gravity (U) [Rel density] 1.010 1.002-1.030 [facility] Urobilinogen Auto test strip Ql (U)Ordered By: Yesenia Todd on 03-29-2023 Urobilinogen Ql (U) Normal mg/dl Normal [facility] T3, FREEon 02-16-2023 Free T3 [Mass/Vol] 3.0 pg/mL Normal 2.3-4.2 [facility] Comment on above: Performed By: #### 5 081, 23115, 866 #### [facility] [address], [address] [place] [address] Marble Finisher: Amarjit Rasmussen MD T4, FREE 02-16-2023 Free T4 [Mass/Vol] 0.6 ng/dL Low 0.8-1.8 [facility] Comment on above: Performed By: #### 5 Leonor1, 63386, 866 #### [facility] [place] [address] Marble Finisher: Amarjit Rasmussen MD THYROID PEROXIDASE ANTIBODIE [facility] 02-16-2023 THYROID PEROXIDASE ANTIBODIES 94 IU/mL High <9 [facility] Comment on above: Performed By: #### Caridad Castillo, [address], 866 #### [facility] [place] [address] Marble Finisher: Amarjit Rasmussen MD Laboratory - Chemistry and C hemistry - challenge 02-15-2023 Free T3 [Mass/Vol] 3.0 pg/mL Normal 2.3 - 4.2 pg/mL [facility] [employer] [facility] Free T4 [Mass/Vol] 0.6 ng/dL Abnormal 0.8 - 1.8 ng/dL [facility] No Panel Informationon 02-15 THYROID PEROXIDASE ANTIBODIES 94 {IU/mL} Abnormal [facility] GILBERTO SCREEN, IFA, W/REFL TITE R AND PATTERNon 02-08-2023 GILBERTO SCREEN, IFA Positive Abnormal NEGATIVE [facility] Comment on above: Result Comment: GILBERTO IFA is a first line screen for detecting the presence of up to approximately 150 autoantibodies in various autoimmune diseases. A positive GILBERTO IFA result is suggestive of autoimmune disease and reflexes to titer and pattern. Further laboratory testing may be considered if clinically indicated. For additional information, please refer to http://education.CEYX/faq/OFO502 (This link is being provided for informational/ educational purposes only.) Performed By: #### 1 0231, 899, %23894, 249, 6646, 4420 #### [facility] [address], [address] [place] [address] Marble Finisher: Amarjit Rasmussen MD ANTINUCLEAR ANTIBODIES TITER AND PATTERNon 02-08-2023 GILBERTO PATTERN Cytoplasmic Abnormal [facility] Comment on above: Result Comment: The presence of cytoplasmic fluorescence was noted on the HEp-2 slide. Other reactivities (e.g., anti- mitochondrial antibodies or anti-smooth muscle antibodies) may be responsible for this fluorescence. The clinical significance of this finding is uncertain. Clinical correlation is recommended. AC-15 to AC-23: Cytoplasmic International Consensus on GILBERTO Patterns (https://doi.org/10.1515/sdak-2850-3473) Performed By: #### 8 99 #### [facility] [address], [address] [place] [address] Marble Finisher: Amarjit Rasmussen MD GILBERTO PATTERN Nuclear, Homogeneous Abnormal [facility] Comment on above: Result Comment: Homo geneous pattern is associated with systemic lupus erythematosus (SLE), drug-induced lupus and juvenile idiopathic arthritis. AC-1: Homogeneous International Consensus on GILBERTO Patterns (https://doi.org/10.1515/nasr-7614-8934) Performed By: #### 8 99 #### [facility] [address], [address] [place] [address] Marble Finisher: Amarjit Rasmussen MD GILBERTO TITER 1:80 High [facility] Comment on above: Result Comment: A lo w level GILBERTO titer may be present in pre-clinical autoimmune diseases and normal individuals. Reference Range <1:40 Negative 1:40-1:80 Low Antibody Level >1:80 Elevated Antibody Level Performed By: #### 8 99 #### [facility] of [address], [address] [place] [address] Marble Finisher: Amarjit Rasmussen MD B TYPE NATRIURETIC PEPTIDE ( BNP)on 02-08-2023 Natriuretic peptide B (Bld) [Mass/Vol] 16 pg/mL Normal <100 [facility] Comment on above: Result Comment: BNP levels increase with age in the general population with the highest values seen in individuals greater than 75 years of age. Reference: J. Am. Janki. Cardiol. 2002; 40:976-982. Performed By: #### 3 [id number] #### [facility] [address], [address] [place] [address] Marble Finisher: Amarjit Rasmussen MD C-REACTIVE PROTEINon 023 CRP [Mass/Vol] 2.1 mg/L Normal <8.0 [facility] Comment on above: Performed By: #### 8 99 #### [facility] [place] [address] Marble Finisher: Amarjit Rasmussen MD COMPREHENSIVE METABOLIC PANE Bryon 02-08-2023 Albumin [Mass/Vol] 4.8 g/dL Normal 3.6-5.1 [facility] Comment on above: Performed By: #### 1 0231, 899, %89531, 249, 6646, 4420 #### [facility] [address], [address] [place] [address] Marble Finisher: Amarjit Rasmussen MD Albumin/Globulin [Mass ratio] 1.5 {ratio} Normal 1.0-2.5 [facility] Comment on above: Performed By: #### 1 0231, 899, %97699, 249, 6646, 4420 #### [facility] [place] [address] Marble Finisher: Amarjit Rasmussen MD ALP [Catalytic activity/Vol] 83 U/L Normal 37-153 [facility] Comment on above: Performed By: #### 1 0231, 899, %69788, 249, 6646, 4420 #### [facility] [address], [address] [place] [address] Marble Finisher: Amarjit Rasmussen MD ALT [Catalytic activity/Vol] 30 U/L High 6-29 [facility] Comment on above: Performed By: #### 1 0231, 899, %30391, 249, 6646, 4420 #### [facility] [place] [address] Marble Finisher: Amarjit Rasmussen MD AST [Catalytic activity/Vol] 23 U/L Normal 10-35 [facility] Comment on above: Performed By: #### 1 0231, 899, %02710, 249, 6646, 4420 #### [facility] [place] [address] Marble Finisher: Amarjit Rasmussen MD Bilirubin [Mass/Vol] 0.5 mg/dL Normal 0.2-1.2 [facility] Comment on above: Performed By: #### 1 0231, 899, %28785, 249, 6646, 4420 #### [facility] [place] [address] Marble Finisher: Amarjit Rasmussen MD BUN/CREATININE RATIO SEE NOTE: Normal 6-22 [facility] Comment on above: Result Comment: Not Reported: BUN and Creatinine are within reference range. Performed By: #### 1 0231, 899, %97415, 249, 6646, 4420 #### [facility] [place] [address] Marble Finisher: Amarjit Rasmussen MD Calcium [Mass/Vol] 10.0 mg/dL Normal 8.6-10.4 [facility] Comment on above: Performed By: #### 1 0231, 899, %43294, 249, 6646, 4420 #### [facility] [place] [address] Marble Finisher: Amarjit Rasmussen MD Chloride [Moles/Vol] 106 mmol/L Normal 98-110 [facility] Comment on above: Performed By: #### 1 0231, 899, %35425, 249, 6646, 4420 #### [facility] of [address], [address] [place] [address] Marble Finisher: Amarjit Rasmussen MD CO2 [Moles/Vol] 23 mmol/L Normal 20-32 [facility] Comment on above: Performed By: #### 1 0231, 899, %40942, 249, 6646, 4420 #### [facility] of [address], [address] [place] [address] Marble Finisher: Amarjit Rasmussen MD Creatinine [Mass/Vol] 0.77 mg/dL Normal 0.50-1.[address] [facility] Comment on above: Performed By: #### 1 0231, 899, %23607, 249, 6646, 4420 #### [facility] of [address], [address] [place] [address] Marble Finisher: Amarjit Rasmussen MD GFR/1.73 sq M.predicted among non-blacks MDRD (S/P/Bld) [Vol rate/Area] 84 mL/min/{1.73_m2} Normal > OR = 60 [facility] Comment on above: Performed By: #### 1 0231, 899, %17204, 249, 6646, 4420 #### [facility] [place] [address] Marble Finisher: Amarjit Rasmussen MD Globulin (S) [Mass/Vol] 3.1 g/dL Normal 1.9-3.7 [facility] Comment on above: Performed By: #### 1 0231, 899, %14807, 249, 6646, 4420 #### [facility] of [place] [address] Marble Finisher: Amarjit Rasmussen MD Glucose [Mass/Vol] 96 mg/dL Normal 65-99 [facility] Comment on above: Result Comment: Fasting reference interval Performed By: #### 1 0231, 899, %04424, 249, 6646, 4420 #### [facility] [place] [address] Marble Finisher: Amarjit Rasmussen MD Potassium [Moles/Vol] 4.0 mmol/L Normal 3.5-5.[address] [facility] Comment on above: Performed By: #### 1 0231, 899, %32650, 249, 6646, 4420 #### [facility] [address], [address] [place] [address] Marble Finisher: Amarjit Rasmussen MD Protein [Mass/Vol] 7.9 g/dL Normal 6.1-8.1 [facility] Comment on above: Performed By: #### 1 0231, 899, %63302, 249, 6646, 4420 #### [facility] [address], [address] [place] [address] Marble Finisher: Amarjit Rasmussen MD Sodium [Moles/Vol] 141 mmol/L Normal 135-146 [facility] Comment on above: Performed By: #### 1 0231, 899, %67058, 249, 6646, 4420 #### [facility] [address], [address] [place] [address] Marble Finisher: Amarjit Rasmussen MD Urea nitrogen [Mass/Vol] 15 mg/dL Normal 7-25 [facility] Comment on above: Performed By: #### 1 0231, 899, %61874, 249, 6646, 4420 #### [facility] [place] [address] Marble Finisher: Amarjit Rasmussen MD LYME DISEASE AB W/REFL TO BL OT (IGG, IGM)on 02-08-2023 LYME AB SCREEN <0.90 Normal [facility] Comment on above: Result Comment: Inde x Interpretation ----- < 0.90 Negative 0.90-1.09 Equivocal > 1.09 Positive As recommended by the Food and Drug Administration (FDA), all samples with positive or equivocal results in a Borrelia burgdorferi antibody screen will be tested using a blot method. Positive or equivocal screening test results should not be interpreted as truly positive until verified as such using a supplemental assay (e.g., B. burgdorferi blot). The screening test and/or blot for B. burgdorferi antibodies may be falsely negative in early stages of Lyme disease, including the period when erythema migrans is apparent. Performed By: #### 1 0231, 899, %56964, 249, 6646, 4420 #### [facility] [address], [address] [place] [address] Marble Finisher: Amarjit Rasmussen MD RHEUMATOID FACTORon 02-09-20 23 RHEUMATOID FACTOR <14 Normal <14 [facility] Comment on above: Performed By: #### 8 99 #### [facility] [place] [address] Marble Finisher: Amarjit Rasmussen MD TSHon 02-08-2023 TSH Qn 20.32 m[IU]/L High 0.40-4.50 [facility] Comment on above: Performed By: #### 8 99 #### [facility] [place] [address] Marble Finisher: Amarjit Rasmussen MD SED RATE BY MODIFIED WESTERG RENon 02-06-2023 SED RATE BY MODIFIED WESTERGREN 9 mm/h Normal < OR = 30 [facility] Comment on above: Performed By: #### 8 99 #### [facility] [place] [address] Marble Finisher: Amarjit Rasmussen MD Laboratory - Chemistry and C hemistry - challengeon 2023 Albumin [Mass/Vol] 4.8 g/dL Normal 3.6 - 5.1 g/dL [facility], [facility], [facility]. Albumin/Globulin [Mass ratio] 1.5 {ratio} Normal 1.0 - 2.[address] [facility], [facility].; [facility], [facility]. ALP [Catalytic activity/Vol] 83 U/L Normal 37 - 153 U/L [facility], [facility].; [facility] ALT [Catalytic activity/Vol] 30 U/L Abnormal 6 - 29 U/L [facility], [facility].; [facility], [facility]. AST [Catalytic activity/Vol] 23 U/L Normal 10 - 35 U/L [facility].; [facility], [facility] Bilirubin [Mass/Vol] 0.5 mg/dL Normal 0.2 - 1 .2 mg/dL [facility].; [facility], [facility]. Calcium [Mass/Vol] 10.0 mg/dL Normal 8.6 - 10. 4 mg/dL [facility].; [facility], [facility] Chloride [Moles/Vol] 106 mmol/L Normal 98 - 11 0 mmol/L [facility].; [facility], [facility] CO2 [Moles/Vol] 23 mmol/L Normal 20 - 32 mmol/L [facility]; [facility], [facility] Creatinine [Mass/Vol] 0.77 mg/dL Normal 0.50 - 1.05 mg/dL [facility]; [facility], [facility] CRP [Mass/Vol] 2.1 mg/L Normal [facility], [facility] GFR/1.73 sq M.predicted among non-blacks MDRD (S/P/Bld) [Vol rate/Area] 84 mL/min/{1.73_m2} Normal [facility]; [facility], [facility] Glucose [Mass/Vol] 96 mg/dL Normal 65 - 99 mg/dL [facility]; [facility], [facility] Natriuretic peptide B (Bld) [Mass/Vol] 16 pg/mL Normal [facility]; [facility], [facility] Potassium [Moles/Vol] 4.0 mmol/L Normal 3.5 - 5.3 mmol/L [facility].; [facility], [facility] Protein [Mass/Vol] 7.9 g/dL Normal 6.1 - 8.1 g/dL [facility], [facility].; [facility], [facility]. Sodium [Moles/Vol] 141 mmol/L Normal 135 - 146 mmol/L [facility], [facility].; [facility], [facility] TSH Qn 20.32 m[IU]/L Abnormal 0.40 - 4.50 {mIU/L} [facility]; [facility] Urea nitrogen [Mass/Vol] 15 mg/dL Normal 7 - 25 mg/dL [facility]; [facility] No Panel Informationon 02-05 GILBERTO PATTERN Cytoplasmic Abnormal [facility]; [facility], [facility] Work Phone: GILBERTO PATTERN Nuclear, Homogeneous Abnormal [facility]; [facility] Work Phone: GILBERTO SCREEN, IFA Positive Abnormal [facility]; [facility] GILBERTO TITER 1:80 Abnormal [facility]; [facility] Work Phone: BUN/CREATININE RATIO SEE NOTE: Normal 6 - 22 [facility]; [facility] GLOBULIN 3.1 Normal 1.9 - 3.7 [facility]; [facility] LYME AB SCREEN <0.90 Normal [facility]; [facility], [facility] RHEUMATOID FACTOR <14 Normal [facility]; [facility] SED RATE BY MODIFIED WESTERGREN 9 mm/h Normal [facility]; [facility], [facility] Laboratory - Chemistry and C hemistry - challengeon 04-23-2022 Albumin [Mass/Vol] 5.0 g/dL Normal 3.6 - 5.1 g/dL [facility]; [facility], [facility] Albumin/Globulin [Mass ratio] 1.6 {ratio} Normal 1.0 - 2.5 [facility]; [facility] ALP [Catalytic activity/Vol] 78 U/L Normal 37 - 153 U/L [facility]; [facility], [facility] ALT [Catalytic activity/Vol] 23 U/L Normal 6 - 29 U/L [facility]; [facility], [facility] AST [Catalytic activity/Vol] 20 U/L Normal 10 - 35 U/L [facility]; [facility] Bilirubin [Mass/Vol] 0.8 mg/dL Normal 0.2 - 1 .2 mg/dL [facility], [facility].; [facility], [facility]. Calcium [Mass/Vol] 10.4 mg/dL Normal 8.6 - 10. 4 mg/dL [facility], [facility].; [facility], [facility]. Chloride [Moles/Vol] 105 mmol/L Normal 98 - 11 0 mmol/L [facility], [facility].; [facility], [facility]. Cholesterol [Mass/Vol] 280 mg/dL Abnormal [facility] Cholesterol in HDL [Mass/Vol] 45 mg/dL Abnormal [facility], [facility].; [facility], [facility]. Cholesterol in LDL [Mass/Vol] 188 mg/dL Abnormal [facility], [facility].; [facility], [facility]. CO2 [Moles/Vol] 27 mmol/L Normal 20 - 32 mmol/L [facility], [facility].; [facility], [facility]. Creatinine [Mass/Vol] 0.84 mg/dL Normal 0.50 - 1.05 mg/dL [facility], [facility].; [facility], [facility]. GFR/1.73 sq M.predicted among non-blacks MDRD (S/P/Bld) [Vol rate/Area] 76 mL/min/{1.73_m2} Normal [facility], [facility].; [facility] Glucose [Mass/Vol] 99 mg/dL Normal 65 - 99 mg/dL [facility].; [facility], [facility]. Potassium [Moles/Vol] 4.4 mmol/L Normal 3.5 - 5.3 mmol/L [facility], [facility].; [facility] Protein [Mass/Vol] 8.1 g/dL Normal 6.1 - 8.1 g/dL [facility], [facility].; [facility] Sodium [Moles/Vol] 140 mmol/L Normal 135 - 146 mmol/L [facility], [facility].; [facility] Triglyceride [Mass/Vol] 265 mg/dL Abnormal [facility], [facility].; [facility], [facility] Urea nitrogen [Mass/Vol] 16 mg/dL Normal 7 - 25 mg/dL [facility].; [employer]. No Panel Informationon 04-23 [id number] SEE NOTE Normal [facility] [employer]. Work Phone: BUN/CREATININE RATIO NOT APPLICABLE Normal 6 - [address] [facility] [employer]. CHOL/HDLC RATIO 6.2 Abnormal [facility] [employer]. EXTRA LAVENDER-TOP TUBE See Below Normal [facility] [employer]. Work Phone: GLOBULIN 3.1 Normal 1.9 - 3.[address] [facility] [employer]. NON HDL CHOLESTEROL 235 Abnormal [facility] [employer]. Ballast Regulator Operator Cytology Reporton 2019 Ball[employer] Regulator Operator Cytology Report . Pathology Reports Accession: Collected Date/Time: Received Date/Time: Pathologist: [id number] 02/23/2020 09:37 EDT 02/23/2020 18:00 EDT MD LEIGH ANN WALL Ballast Regulator Operator Cytology Report SPECIMEN: Specimen Description: Liquid Prep Reflex ASCUS Specimen: No Source Given Screening or Diagnostic: Screening RELEVANT HISTORY: LMP: not given [id number] SPECIMEN ADEQUACY: Specimen processed and examined, but unsatisfactory for evaluation of epithelial abnormality because of Scant Cellularity. INTERPRETATION/RESULT S: UNSATISFACTORY SPECIMEN. COMMENT: This Pap Test was analyzed by the [employer] ThinPrep Test Imaging System. Due to technical imaging issues or the physical propertied of the specimen slide, a manual screen was indicated. Electronically Signed by Pathology report verified by [facility] Screened by: CHRISTINA Electronically signed by LEIGH ANN WALL MD Sign-Out Date: 03/04/2020 16:39 Performing Lab: [facility], [address] [place] [address] Disclaimer The Pap test is a screening test for cervical cancer. As evidenced by published data, it is subject to both inherent false negative and false positive results. Your patient's results should be interpreted in context with pertinent clinical history including gynecological examination. Normal [facility] ([place]) Comment on above: Performed By: #### G YCR #### [place] [address] HPVon 01-22-2020 HPV Interp Normal See Interp HPVN [facility] ([place]) Comment on above: Order Comment: Order placed by AP_HPV_ORDER rule from [id number] Result Comment: High Risk HPV Typing: NEGATIVE HPV types 16, 18, 31, 33, 35, 39, 45, 51, 52, 56, 58, 59, 66 and 68 DNA were undetectable or below the pre-set threshold. The [place] High-Risk HPV DNA Test is not intended for use as a screening device for Pap normal women under age 30 and is not intended to substitute for regular Pap screening. The [place] High-Risk HPV DNA Test is designed to augment existing methods for the detection of cervical disease and should be used in conjunction with clinical information derived from other diagnostic and screening tests, physical examinations and full medical history in accordance with appropriate patient management procedures. NOTE: A negative result does not preclude the presence of HPV infection because results depend on adequate specimen collection, absence of inhibitors and sufficient DNA to be detected. See Inter HPVN Performed By: #### H PV #### [place] [address] HPV Source Cervix Normal [facility] ([place]) Comment on above: Order Comment: Order placed by AP_HPV_ORDER rule from [id number] Performed By: #### H PV #### [place] [address] [employer] Operator Cytology Reporton 2019 Ball[employer] Regulator Operator Cytology Report . Pathology Reports Accession: Collected Date/Time: Received Date/Time: Pathologist: [id number] 01/10/2020 09:48 EDT 01/10/2020 18:00 EDT CHARLIE DE JESUS MD [employer] Reg[employer] Operator Cytology Report SPECIMEN: Specimen Description: Liquid Prep w/ HPV Specimen: Cervical/Endocervical Screening or Diagnostic: Screening RELEVANT HISTORY: LMP: not given Post Menopausal: Yes [id number] SPECIMEN ADEQUACY: Specimen processed and examined, but unsatisfactory for evaluation of epithelial abnormality because of Scant Cellularity. INTERPRETATION/RESULT S: UNSATISFACTORY SPECIMEN. COMMENT: This Pap Test was analyzed by the [employer] ThinPrep Test Imaging System. Processing failed. Manual screening was indicated. Electronically Signed by Pathology report verified by [facility] Screened by: SHELLEY DW Electronically signed by CHARLIE DE JESUS Sign-Out Date: 01/18/2020 12:40 Performing Lab: [facility], [address] [place] [address] Disclaimer The Pap test is a screening test for cervical cancer. As evidenced by published data, it is subject to both inherent false negative and false positive results. Your patient's results should be interpreted in context with pertinent clinical history including gynecological examination. Normal [facility] ([place]) Comment on above: Performed By: #### G YCR #### [place] [address] Vital Signs Date Time Vital Sign Value Performing Clinician Facility 12-16-2023 09:22-0400 Diastolic blood pressure 99 mm[Hg] Kya Walker MA [facility] [employer] [facility], [employer]. Comment on above: Patient Position: Sitting; Cuff Location : Left Arm; Cuff Size: Standard 12-16-2023 09:22-0400 Systolic blood pressure 137 mm[Hg] Kya Walker MA [facility] [employer], [employer]. Comment on above: Patient Position: Sitting; Cuff Location : Left Arm; Cuff Size: Standard 12-16-2023 09:22-0400 Diastolic blood pressure 91 mm[Hg] Kya Walker MA [facility] [employer]. Comment on above: Patient Position: Sitting; Cuff Location : Left Arm; Cuff Size: Standard 12-16-2023 09:22-0400 Systolic blood pressure 128 mm[Hg] Kya Walker MA [facility] [employer], [employer]. Comment on above: Patient Position: Sitting; Cuff Location : Left Arm; Cuff Size: Standard 12-16-2023 09:21-0400 Body height 167.64 cm Kya Walker MA [employer] [facility] [employer] 12-16-2023 09:21-0400 Body mass index (BMI) [Ratio] 39.06 kg/m2 Kya Walker MA [place] [employer] [facility] [employer] 12-16-2023 09:21-0400 Body surface area Derived from formula 2.17 m2 Kya Walker MA [place] [employer] [employer] [facility] [employer]. 12-16-2023 09:21-0400 Body weight 109.77 kg [facility].; [facility]. 12-16-2023 09:21-0400 Diastolic blood pressure 108 mm[Hg] K[facility].; [employer]. Comment on above: Patient Position: Sitting; Cuff Location : Left Arm; Cuff Size: Standard 12-16-2023 09:21-0400 Heart rate 80 /min [facility].; [employer]. Comment on above: Pattern: Regular 12-16-2023 09:21-0400 Systolic blood pressure 145 mm[Hg] K[facility].; [employer]. Comment on above: Patient Position: Sitting; Cuff Location : Left Arm; Cuff Size: Standard 09-17-2023 08:50-0400 Body height 167.64 cm K[facility].; [place] [facility] [facility]. 09-17-2023 08:50-0400 Body mass index (BMI) [Ratio] 39.22 kg/m2 Kya [facility].; [place] [facility] [facility]. 09-17-2023 08:50-0400 Body surface area Derived from formula 2.17 m2 Kya [facility].; [employer] [facility] [facility], [facility]. 09-17-2023 08:50-0400 Body weight 110.22 kg Kya [facility].; [place] [facility]. 09-17-2023 08:50-0400 Diastolic blood pressure 113 mm[Hg] K[facility].; [place] [employer] [employer]. Comment on above: Patient Position: Sitting; Cuff Location : Left Arm; Cuff Size: Standard 09-17-2023 08:50-0400 Heart rate 71 /min [facility].; [employer]. Comment on above: Pattern: Regular 09-17-2023 08:50-0400 Systolic blood pressure 165 mm[Hg] Kya Walker MA [place] [facility].; [facility]. Comment on above: Patient Position: Sitting; Cuff Location : Left Arm; Cuff Size: Standard 2023 08:08-0400 Diastolic blood pressure 100 mm[Hg] Renay Masterson [facility].; [place] [employer] [employer]. Comment on above: Patient Position: Sitting; Cuff Location : Left Arm; Cuff Size: Standard 2023 08:08-0400 Heart rate 76 /min Renay Masterson [facility].; [employer]. Comment on above: Pattern: Regular 2023 08:08-0400 Systolic blood pressure 172 mm[Hg] Renay Masterson [facility].; [employer]. Comment on above: Patient Position: Sitting; Cuff Location : Left Arm; Cuff Size: Standard 2023 08:07-0400 Body height 167.64 cm Renay Masterson [facility].; [place] [employer] [facility]. 2023 08:07-0400 Body mass index (BMI) [Ratio] 40.03 kg/m2 Renay Masterson [facility].; [employer], [facility]. 2023 08:07-0400 Body surface area Derived from formula 2.19 m2 Renay Masterson [facility].; [employer] [facility] [facility], [facility]. 2023 08:07-0400 Body weight 112.49 kg Renay Masterson [facility].; [employer] [facility]. 2023 08:07-0400 Diastolic blood pressure 123 mm[Hg] Renay Masterson [facility].; [employer]. Comment on above: Patient Position: Sitting; Cuff Location : Left Arm; Cuff Size: Standard 2023 08:07-0400 Heart rate 76 /min Renay Masterson [facility].; [employer]. Comment on above: Pattern: Regular 2023 08:07-0400 Systolic blood pressure 168 mm[Hg] Renay Masters[facility].; [employer] [facility] [employer] Comment on above: Patient Position: Sitting; Cuff Location : Left Arm; Cuff Size: Standard 04-30-2022 10:05-0400 Body height 167.64 cm Keturah Craft OPERATIONS CLERK [place] [employer] [facility] [facility] [place] [facility] [facility] 04-30-2022 10:05-0400 Body mass index (BMI) [Ratio] 39.22 kg/m2 Keturah Peñalozaugg OPERATIONS CLERK [place] [employer] [facility] [facility] [employer], [facility]. 04-30-2022 10:05-0400 Body surface area Derived from formula 2.17 m2 Keturah Peñalozaugg OPERATIONS CLERK [place] [employer] [facility] [facility] [employer], [employer]. 04-30-2022 10:05-0400 Body weight 110.22 kg Keturah Peñalozaugg OPERATIONS CLERK [place] [employer] [facility] [facility], [facility].; [employer], [employer]. 04-30-2022 10:05-0400 Diastolic blood pressure 109 mm[Hg] Keturah Peñalozaugg OPERATIONS CLERK [place] [employer], [employer]. Comment on above: Patient Position: Sitting; Cuff Location : Left Arm; Cuff Size: Standard 04-30-2022 10:05-0400 Heart rate 67 /min Keturah Craft OPERATIONS CLERK [place] [facility] [facility] [employer], [employer]. Comment on above: Pattern: Regular 04-30-2022 10:05-0400 Systolic blood pressure 158 mm[Hg] Keturah Anabelaugg OPERATIONS CLERK [place], [employer]. Comment on above: Patient Position: Sitting; Cuff Location : Left Arm; Cuff Size: Standard 09-01-2014 10:0500 Body height 167.64 cm Speedy Phan PA-C Work Phone: [place] [employer], [employer]. 09-01-2014 10:26-0500 Body mass index (BMI) [Ratio] 32.89 kg/m2 Speedy Phan PA-C Work Phone: [place] [employer], [employer]. 09-01-2014 10:26-0500 Body surface area Derived from formula 2.02 m2 Speedy Phan PA-C Work Phone: [employer]; [employer] 09-01-2014 10:26-0500 Body temperature 102.8 [degF] Speedy Phan PA-C Work Phone: [employer]; [employer] Comment on above: Method: Tympanic 09-01-2014 10:26-0500 Body weight 92.44 kg Speedy Phan PA-C Work Phone: [employer]; [employer]. 09-01-2014 10:26-0500 Diastolic blood pressure 64 mm[Hg] Speedy Phan PA-C Work Phone: [employer]; [employer]. Comment on above: Patient Position: Sitting; Cuff Location : Left Arm; Cuff Size: Standard 09-01-2014 10:26-0500 Heart rate 130 /min Speedy Phan PA-C Work Phone: [employer]; [employer]. Comment on above: Pattern: Regular 09-01-2014 10:26-0500 Inhaled oxygen concentration 20 % Speedy Phan PA-C Work Phone: [employer]; [employer]. Comment on above: Room air 09-01-2014 10:26-0500 Inhaled oxygen concentration 21 % Speedy Phan PA-C Work Phone: [employer]; [employer] Comment on above: Room air 09-01-2014 10:26-0500 SaO2% (BldA) [Mass fraction] 97 % Speedy Phan PA-C Work Phone: [employer]; [employer]. 09-01-2014 10:26-0500 Systolic blood pressure 108 mm[Hg] Speedy Phan PA-C Work Phone: [employer]; [employer] Comment on above: Patient Position: Sitting; Cuff Location : Left Arm; Cuff Size: Standard 11-04-2012 11:13-0400 Body weight 108.41 kg Speedy Phan PA-C Work Phone: [employer]. 11-04-2012 11:130400 Diastolic blood pressure 92 mm[Hg] Speedy Phan PA-C Work Phone: [employer]. Comment on above: Patient Position: Sitting; Cuff Location : Left Arm; Cuff Size: Standard 11-04-2012 11:13-0400 Heart rate 72 /min Speedy Phan PA-C Work Phone: [employer]. Comment on above: Pattern: Regular 11-04-2012 11:130400 Systolic blood pressure 137 mm[Hg] Speedy Phan PA-C Work Phone: [employer]; [employer]. Comment on above: Patient Position: Sitting; Cuff Location : Left Arm; Cuff Size: Standard Encounters Encounter Date Encounter Type Care Provider Facility Start: 09-01-2024 End: 09-01-2024 ambulatory Speedy Phan PA Work Phone: [facility] Work Phone: Start: 09-01-2024 End: 09-01-[address] Yesenia Todd MD -Laboratory Work Phone: Start: 09-01-2024 End: 09-01-2024 ambulatory [facility] Facility:[facility] Start: 06-14-2024 End: 06-14-[address] Nav Garza MD -[facility] Start: 06-14-2024 End: 06-14-2024 ambulatory Nav Garza Facility:[facility] [place] [place] Start: 06-05-2024 End: 06-05-[address] Yesenia Todd MD -Laboratory Work Phone: Start: 06-05-2024 End: 06-05-2024 ambulatory [facility] Facility:[facility] Start: 03-13-2024 End: 03-13-2024 ambulatory Speedy Phan Facility:[facility] Start: 02-18-2024 ambulatory SPEEDY PAC PHAN [facility] [place] Start: 02-03-2024 End: 02-03-2024 ambulatory [facility] Start: 01-26-2024 End: 01-26-2024 ambulatory [facility] Start: 12-16-2023 End: 12-16-2023 Orders Speedy Phan PA-C Work Phone: [employer] [facility] [employer] Start: 12-16-2023 End: 12-16-2023 Patient encounter procedure Speedy Michelle Phan PA-C Work Phone: [employer] Start: 12-13-2023 End: 12-13-2023 ambulatory Speedy Phan Facility:[facility] Start: 10-18-2023 End: 10-18-2023 ambulatory [facility] Work Phone: Start: 10-18-2023 End: 10-18-2023 Patient encounter procedure [facility] Work Phone: Start: 10-18-2023 End: 10-18-2023 ambulatory Speedy Phan Facility:[facility] Start: 09-17-2023 End: 09-17-2023 Office outpatient visit 15 minutes Speedy Phan PA-C Work Phone: [employer] Start: 08-23-2023 End: 08-23-2023 Medication Speedy Phan PA-C Work Phone: [employer] Start: 08-23-2023 End: 08-23-2023 ambulatory [facility] Work Phone: Start: 08-23-2023 End: 08-23-2023 Patient encounter procedure [facility] Work Phone: Start: 08-19-2023 End: 08-20-2023 Orders Speedy Phan PA-C Work Phone: [employer] Start: 06-07-2023 End: 06-07-2023 ambulatory [facility] Work Phone: Start: 06-07-2023 End: 06-07-2023 Patient encounter procedure [facility] Work Phone: Start: 05-24-2023 End: 05-24-2023 Medication Speedy Phan PA-C Work Phone: [employer] Start: 05-21-2023 End: 05-21-2023 Orders Speedy Phan PA-C Work Phone: [employer] Start: 03-29-2023 End: 03-29-2023 ambulatory [facility] Work Phone: Start: 03-29-2023 End: 03-29-2023 Patient encounter procedure [facility], [place] Work Phone: Start: 02-17-2023 End: 02-17-2023 Medication Speedy Phan PA-C Work Phone: [employer] Start: 02-15-2023 End: 02-15-2023 Orders Speedy Phan PA-C Work Phone: [employer] Start: 02-09-2023 End: 02-09-2023 Orders Speedy Phan PA-C Work Phone: [employer] Start: 2023 End: 2023 Office outpatient visit 25 minutes Speedy Phan PA-C Work Phone: [employer] Start: 09-25-2022 End: 09-25-2022 Orders Speedy Phan PA-C Work Phone: [employer] Start: 05-05-2022 End: 05-05-2022 Historical Summary Speedy Phan PA-C Work Phone: [employer] Start: 04-30-2022 End: 04-30-2022 Patient encounter procedure Speedy Phan PA-C Work Phone: [facility] Start: 04-30-2022 End: 04-30-2022 Physical examination Speedy Phan PA-C Work Phone: [facility]; [facility] Start: 04-23-2022 End: 04-23-2022 Orders Speedy Phan PA-C Work Phone: [facility] Start: 04-10-2022 End: 04-10-2022 Orders Speedy Phan PA-C Work Phone: [facility] Start: 09-01-2014 End: 09-01-2014 Office outpatient visit 15 minutes Speedy Phan PA-C Work Phone: [facility] Start: 11-04-2012 End: 11-04-2012 Patient encounter procedure Speedy Phan PA-C Work Phone: [facility] Physical examination Renay Masterson MA [facility] Physical examination Kya Walker MA [facility]; [facility] Physical examination Kya Walker MA [facility]; [facility] Procedures Date Procedure Procedure Detail Performing Clinician Start: 06-14-2024 X-ray of both feet Kimberlydee Phan PA Work Phone: Start: 12-16-2023 End: 12-16-2023 Adv care pln/ no alt dcsn mkr docd or refusal Speedy J Phan PA-C Work Phone: Start: 12-16-2023 End: 12-16-2023 Depression screening Speedy Michelle Pahn PA-C Work Phone: Start: 12-16-2023 End: 12-16-2023 Falls risk assessment documented Speedy J Phan PA-C Work Phone: Start: 12-16-2023 End: 12-16-2023 PPPS, subseq visit Speedy Michelle Phan PA-C Work Phone: Start: 12-16-2023 End: 12-16-2023 Pt falls assess docd 2/> falls/fall w/injury/yr Speedy Michelle Phan PA-C Work Phone: Start: 12-16-2023 End: 12-16-2023 Scr dep neg, no plan reqd Spedey Michelle Phan PA-C Work Phone: Start: 12-16-2023 End: 01-27-2024 Screening mammography bi 2-view breast inc cad Speedy Michelle Phan PA-C Work Phone: Start: 09-25-2022 End: 11-14-2022 Screening mammography bi 2-view breast inc cad Teresa Aviles OPERATIONS CLERK Work Phone: Start: 04-30-2022 End: 04-30-2022 Adv care pln/ no alt dcsn mkr docd or refusal Speedy Michelle Phan PA-C Work Phone: Start: 04-30-2022 End: 04-30-2022 Depression screening Speedy Michelle Phan PA-C Work Phone: Start: 04-30-2022 End: 04-30-2022 Falls risk assessment documented Speedy Michelle Phan PA-C Work Phone: Start: 04-30-2022 End: 04-30-2022 Initial preventive exam Speedypipo Phan P A-C Work Phone: Start: 04-30-2022 End: 04-30-2022 Pt falls assess docd w/o fall/injury past year Speedy Michelle Phan PA-C Work Phone: Start: 04-30-2022 End: 04-30-2022 Scr dep neg, no plan reqd Speedy Michelle Phan PA-C Work Phone: Start: 04-30-2022 End: 04-30-2022 Screening test visual acuity quantitative bilat Speedy Michelle Phan PA-C Work Phone: Start: 07-05-2019 End: 07-05-2019 Partial hysterectomy Renay Masterson MA Comment on above: VaginalDrNaman Poole has ovaries Start: 11-04-2012 End: 11-14-2012 Radiologic examination ankle 2 views Guille Bro MD Work Phone: Hernia repair Renay Pino A Hernia repair Kya zapata MA Lumpectomy of breast Renay Zelalem [place] Lumpectomy of breast Kya Aaron [place] Plan of Treatment Date Care Activity Detail Author Start: 12-16-2023 Screening mammograph y bi 2-view breast inc cad Mammogram Bilateral Screening Digital w/CAD (87385) with 3D (tomosynthesis), bilateral (66501) Start: 16-Dec-2023 Intent [employer] Start: 12-16-2023 Assay of thyroid stimulating hormone tsh TSH (THYROID STIMULATING HORMONE) ([id number]) Start: 16-Dec-2023 09:35-04:00 Request [employer]. Start: 12-16-2023 Patient encounter procedure Medical; PHYSICAL - awv [employer]. Start: 16-Dec-2023 09:10-04:00 ERMA Phan Appointment Request [employer]. Start: 11-19-2023 Assay of thyroid stimulating hormone tsh TSH (THYROID STIMULATING HORMONE) (40862) Start: 19-Nov-2023 Request [employer]. Start: 11-19-2023 Nursing evaluation o f patient and report Medical; Nurse visit - tsh [employer]. Start: 19-Nov-2023 9:20 NURSE, FLOAT Appointment Request [employer]. Start: 11-19-2023 Patient encounter procedure Medical; PHYSICAL - AWV/TSH [employer]. Start: 19-Nov-2023 08:50-04:00 ERMA hPan Appointment Request [employer]. Start: 08-19-2023 Assay of thyroid stimulating hormone tsh TSH (THYROID STIMULATING HORMONE) ([id number]) Start: 19-Aug-2023 8:13 Request [employer] Payers Date Payer Category Payer Medicare [id number] 2023 Self-pay [id number] 1955 Unknown [id number] 2.16.8 [id number] 1955 Unknown [id number] 2.16.8 [id number] 1955 Unknown [id number] 2.16.8 [id number] Unknown Unknown [id number] Unknown [id number] 2.16.8 [id number] Unknown [id number] 2.16.8 [id number] Unknown [id number] 2.16.8 [id number] Unknown [id number] 2.16.8 [id number] Unknown [id number] 2.16.8 [id number] Unknown [id number] 2.16.8 [id number] Social History Date Type Detail Facility Start: 05-24-2020 End: 05-24-2020 Tobacco smoking status SDIS Unknown if ever smoked [facility] Start: 1955 Sex Assigned At Female [facility] Tobacco Use: Tobacco Use: ; N ever smoker. [employer] Start: 06-14-2024 [facility] smoked [facility] Start: 09-14-2024 Sex Female (finding) [facility] NEGATED: Highlighted row No Social History Information Available No Social History Information Available [employer] Work Phone: Evaluation note Note Date & Type Note Facility Evaluation note No assessment information availa ble [facility] Work Phone: Reason for referral (narrative) Note Date & Type Note Facility Reason for referral (narrative) No reason for referral information available [facility] Work Phone: Summary Purpose Family History Father Status:Active Comments:Heart D isease, HTN Father Status:Active Comments:Heart D isease, HTN Father Status:Active Comments:Heart D isease, HTN Father Status:Active Comments:Heart D isease, HTN Father Status:Active Comments:Heart D isease, HTN Father Status:Active Comments:Heart D isease, HTN Father Status:Active Comments:Heart D isease, HTN Father Status:Active Comments:Heart D isease, HTN Father Status:Active Comments:Heart D isease, HTN Father Status:Active Comments:Heart D isease, HTN Father Status:Active Comments:Heart D isease, HTN Father Status:Active Comments:Heart D isease, HTN Father Status:Active Comments:Heart D isease, HTN Father Status:Active Comments:Heart D isease, HTN Father Status:Active Comments:Heart D isease, HTN Father Status:Active Comments:Heart D isease, HTN Father Status:Active Comments:Heart D isease, HTN Father Status:Active Comments:Heart D isease, HTN Father Status:Active Comments:Heart D isease, HTN Father Status:Active Comments:Heart D isease, HTN Father Status:Active Comments:Heart D isease, HTN Father Status:Active Comments:Heart D isease, HTN Father Status:Active Comments:Heart D isease, HTN Father Status:Active Comments:Heart D isease, HTN Father Status:Active Comments:Heart D isease, HTN Advance Directives Advance Directive Response Recorded Date/ Time Living Will No June 03 1:31pm Power of Broaching Machine Set Up Operator No June 03, 2020 1:31pm Advance Directive Response Recorded Date/ Time Living Will No June 03 12:31pm Power of Broaching Machine Set Up Operator No June 03, 2020 12:31pm Chief Complaint and Reason for Visit Chief Complaint PAIN- COPY PCP Chief Complaint Admit Date INT LABS June 05, 2024 8 :23am XRAY June 14, 2024 9:38am Additional Source Comments INFORMATION SOURCE (unrecogn ized section and content) DATE CREATED AUTHOR 03/04/2020 [facility] ([place]) DATE CREATED AUTHOR AUTHOR'S ORGANIZ ATION 12/31/2023 [facility] DATE CREATED AUTHOR AUTHOR'S ORGANIZ ATION 02/19/2024 [facility] DATE CREATED AUTHOR AUTHOR'S ORGANIZ ATION 09/16/2024 [facility] Care Teams (unrecognized sec tion and content) Team Status: Active Member Role Status Dates Dr. Guille Bro MD Primary Care Provider Active Team Status: Inactive Member Role Status Dates Dr. Guille Bro MD Primary Care Provider Active Dr. Yesenia Todd MD Attending Provider, Referring Provider Active Team Status: Active Member Role Status Dates JEREMIAS Garcia Primary Care Provider Active Team Status: Inactive Member Role Status Dates JEREMIAS Garcia Primary Care Provider Active Dr. Yesenia Todd MD Attending Provider, Referring Provider Active Team Status: Inactive Member Role Status Dates JEREMIAS Garcia Primary Care Provider Active S tart: June 05, 2024 End: June 05, 2024 Dr. Yesenia Todd MD Attending Provider Active Start: June 05, 2024 End: June 05, 2024 Dr. Yesenia Todd MD Referring Provider Active Start: June 05, 2024 End: June 05, 2024 Team Status: Inactive Member Role Status Dates JEREMIAS Garcia Primary Care Provider Active S tart: June 14, 2024 End: June 14, 2024 Dr. Nav Garza MD Attending Provider Active S tart: June 14, 2024 End: June 14, 2024 Team Status: Inactive Member Role Status Dates JEREMIAS Garcia Primary Care Provider Active S tart: September 01, 2024 End: September 01, 2024 Dr. Yesenia Todd MD Attending Provider Active Start: September 01, 2024 End: September 01, 2024 Dr. Yesenia Todd MD Referring Provider Active Start: September 01, 2024 End: September 01, 2024 Goals (unrecognized section and content) Goals may be documented in a n alternate sectionGoals may be documented in an alternate sectionGoals may be documented in an alternate sectionGoals may be documented in an alternate sectionGoals may be documented in an alternate section FOR RECORDS PERTAINING TO PATIENTS WHO ARE [...] BE BASED ON THE PRIMARY CLINICAL RECORDS. [facility]. provides no warranty or guarantee of the accuracy or completeness of information in this document.
[2024-12-15 14:47] LABS: ALB/GLOB Ratio 1.6 RATIO (0.9-2.4); AST(SGOT) 34 U/L (<=31); Alanine Aminotransfer ALT/SGPT 45 U/L (<=34); Albumin, Serum 4.7 g/dL (3.4-4.8); Alkaline Phosphatase 84 U/L (35-104); Anion Gap 11 (5-15); BUN 15 mg/dL (4-19); BUN/Creat Ratio 18.6 RATIO (10-20); Carbon Dioxide 23.5 mmol/L (21.0-32.0); Chloride 107 mmol/L (98-108); Creatinine, Serum 0.81 mg/dL (0.70-1.20); EST Glomerular Filtration Rate 79 (>60); Glucose 97 mg/dL (70-99); Potassium 4.3 mmol/L (3.3-5.1); Protein, Total 7.7 g/dL (5.9-8.4); Sodium Level 141 mmol/L (133-145); Total Bilirubin 0.65 mg/dL (0.00-1.30)
== END | disposition home or self-care (01) ==
LOC: LAB 08:16
PROVIDERS: Referring Provider Internal Medicine Rheumatology; Visit Provider Internal Medicine Rheumatology
DX: M06.4 Inflammatory polyarthropathy (principal); M25.571 Pain in right ankle and joints of right foot; M17.0 Bilateral primary osteoarthritis of knee; R76.8 Other specified abnormal immunological findings in serum
CPT/HCPCS: 36415; 80053; 85025

== ENCOUNTER → 2024-12-29 | Outpatient (CLI) | payer MEDICARE, SELFPAY ==
--- OUTSIDE RECORDS SUMMARY | 2024-12-29 07:00 | XMS RPT_ITS | CCD ---
Author Organization [facility] Care Team Providers Care Passenger Service Manager Name Role Phone Emilie RITCHIE, Speedy J Unavailable Emilie RITCHIE, Speedy J Unavailable [phone] Rheumatolgy Provider Unavailable Unavailable Traci MACEDO, Teresa Unavailable Dieudonne LÓPEZ, Guille Casey Unavailable Kya Walker MA Unavailable Unavailable Kelsey Hurst Unavailable Unavailable Renay Masterson MA Unavailable Unavailable Kerri CORTEZ, Britni Damon Unavailable Unavaila ble Zaugg FORESTRY BIOLOGY SPECIALIST, Keturah Unavailable Unavailable Unavailable Unavailable PHAN, SPEEDY PAC [...] PAC Consulting Unavailable PROVIDER, UNKNOWN Consulting Unavailable Emilie KRAUSE Speedy Primary Care Provider [phone] Perez LÓPEZ, Dr. Patterson Attending Provider Perez LÓPEZ, Dr. Patterson Referring Provider Kayla LÓPEZ, Dr. Chopra Attending Provider [phone] Emilie KRAUSE Speedy Primary Care Provider Perez LÓPEZ, Dr. Patterson Attending Provider Perez LÓPEZ, Dr. Patterson Referring Provider Yesenia Todd Referring Unavailable Yesenia Todd Attending Unavailable Emilie, Speedy Primary Care Unavailable Vellanki, Yesenia Referring Unavailable Vellanki, Yesenia Attending Unavailable Phan, Speedy Primary Care Unavailable Vellanki, Yesenia Attending Unavailable Vellanki, Yesenia Referring Unavailable Phan, Speedy Primary Care Unavailable Phan, Speedy Primary Care Unavailable Vellanki, Yesenia Attending Unavailable Vellanki, Yesenia Referring Unavailable Kayla, Nav Attending Unavailable Phan, Speedy Primary Care Unavailable Vellanki, Yesenia Attending Unavailable Vellanki, Yesenia Referring Unavailable Phan, Speedy Primary Care Unavailable Medications Current Medications Medication Drug Class(es) Dates Sig (Normalized) Sig (Original) Ascorbic Acid-Elderberry Fruit (4 sources) Start: 05-24-2020 Ascorbic Acid-Elderberry Fruit Active 1 EACH PO DAILY May 24, 2020 12:00am Start: 05-24-2020 Ascorbic Acid- Elderberry Fruit Active 1 EACH PO DAILY May 24, 2020 1:00am Ascorbic Acid-Elderberry Fruit 1 EACH tablet,chewable (2 sources) Start: 05-24-2020 take 1 tablet by mouth once daily Ascorbic Acid-Elderberry Fruit 1 EACH tablet,chewable Active 1 NMA PO DAILY May 24, 2020 1:00am folic acid 1 mg oral tablet (14 sources) folic acid 1 mg tablet ; [...] Mail order. methotrexate 2.5 mg oral tablet (14 sources) Folate Analog Metabolic Inhibitor take 1 tablet by mouth every week methotrexate sodium 2.5 mg tablet ; 1 tab by mouth once a week (2.5 mg) Multivitamin Oral Tablet (20 sources) Multivitamin Ora l Tablet Xqpxgfpygcrd-Ai-Kots-M inerals (4 sources) Start: 0 Scszgywdjkth-Tw-Hmwd- Minerals Active 1 EACH PO DAILY May 24, 2020 12:00am Start: 05-24-2020 Multivitamin-C f-Tqba-Buhsfbkl Active 1 EACH PO DAILY May 24, 2020 1:00am Uyxgxjxwvaxa-Ny-Qpgp-Mineral s 1 EACH tablet (2 sources) Start: 05-24-2020 take 1 tablet by mouth once daily Rtwrfsvzxqal-Hm-Camv-Minerals 1 EACH tablet Active 1 NMA PO [...] delivery oxyCODONE hydrochloride 5 mg oral tablet (6 sources) Opioid Agonist Start: 06-04-2020 End: 06-07-2020 [...] [Other specified abnormal immunological findings in serum] Onset: 12-26-2024 02-09-2023 Episodic Influenza (20 sources) Influenza; Translations: [Influenza due to unidentified influenza virus with other respiratory manifestations] 04-30-2022 Episodic Osteoarthritis (1 source) Bilateral primary osteoarthritis of knee; Translations: [Bilateral primary osteoarthritis of knee] Onset: 12-26-2024 Chronic Other circulatory disease (20 sources) Elevated blood [...] joints of right foot] 09-17-2023 Episodic Other non-traumatic joint disorders (1 source) Pain in right ankle and joints of right foot; Translations: [Pain in right ankle and joints of right foot] Onset: 12-26-2024 Episodic Other nutritional; endocrine; and metabolic disorders [...] 12-16-2023 Episodic Rheumatoid arthritis and related disease (5 sources) Inflammatory polyarthropathy; Translations: [Inflammatory polyarthropathy] Onset: 12-21-2024 12-16-2023 Chronic Thyroid disorders (20 sources) Hypothyroidism; [...] patient does not have Healthcare Power of Instructional Technologist or Living Will. Note for MCR Well [...] c/o dizziness on and off. reviewed by B 09-01-2014 Unclassified (20 sources) Ankle Injury - [...] some Alleve. Here for evlauation. reviewed by B 11-04-2012 Unclassified (20 sources) Ankle pain - [...] (unsure of the exact dose). 09-17-2023 Unclassified (14 sources) [facility] Well Adult - In general the patient [...] patient does not have Healthcare Power of Instructional Technologist or Living Will. Note for MCR Well Adult: Patient is requesting an order for a mammogram at this time.She is not fasting today. 12-16-2023 Results Test Name Value Interpretation Reference Range Facility Absolute lymphocyte countOrd ered By: Yesenia Todd on 12-15-2024 Lymphocytes Auto (Unsp spec) [#/Vol] 1.86 10*3/uL 0.83-4.51 [facility] Absolute neutrophil countOrd ered By: Yesenia Todd on 12-15-2024 Neutrophils (Bld) [#/Vol] 3.2 10*3/uL 2.0-7.7 [facility] Anion gap in Serum or Plasma Ordered By: Yesenia Todd on 12-15-2024 Anion gap [Moles/Vol] 11 mmol/L 5-15 [facility] Automated lymphocyte count a s percentage of total leukocytesOrdered By: Yesenia Todd on 12-15-2024 Lymphocytes/100 WBC Auto (Unsp spec) 34.1 % 19-41 [facility] BUN/creatinine ratioOrdered By: Yeseniacintia Todd on 12-15-2024 Urea nitrogen/Creatinine [Mass ratio] 18.6 mg/mg 10-20 [facility] Basophil percentageOrdered B y: Yesenia Todd on 12-15-2024 Basophils/100 WBC (Bld) 0.4 % 0-1 [facility] Bilirubin, totalOrdered By: Yesenia Todd on 12-15-2024 Bilirubin [Mass/Vol] 0.65 mg/dL 0.00-1.30 [facility] CBC W/Diff, Automatedon 12-03 Absolute Lymph 1.86 X10 3/uL Normal 0.83-4.51 [facility] Comment on above: Performed By: #### L 100.0100, L500.4050 #### [facility] [address] [place], [address] Absolute Neut 3.2 X10 3/uL Normal 2.0-7.7 [facility] Comment on above: Performed By: #### L 100.0100, L500.4050 #### [facility] [address] [place], [address] Basophils/100 WBC (Bld) 0.4 % Normal 0-1 [facility] Comment on above: Performed By: #### L 100.0100, L500.4050 #### [facility] [address] [place], [address] Eosinophils/100 WBC (Bld) 1.1 % Normal 0-5 [facility] Comment on above: Performed By: #### L 100.0100, L500.4050 #### [facility] [address] [place], [address] Erythrocyte distribution width (RBC) [Ratio] 15.5 % High 11.6-14.6 [facility] Comment on above: Performed By: #### L 100.0100, L500.4050 #### [facility] [address] [place], [address] Hematocrit (Bld) [Volume fraction] 41.7 % Normal 37-47 [facility] Comment on above: Performed By: #### L 100.0100, L500.4050 #### [facility] [address] [place], [address] Hemoglobin (Bld) [Mass/Vol] 14.0 g/dL Normal 12.0-15.0 [facility] Comment on above: Performed By: #### L 100.0100, L500.4050 #### [facility] [address] [place], [address] IG% 0.400 Normal 0.0-0.9 [facility] Comment on above: Result Comment: IG% - Immature Granulocytes (promyelocytes, myelocytes and metamyelocytes) > 1% indicates that a LEFT SHIFT is Present. Performed By: #### L 100.0100, L500.4050 #### [facility] [address] [place], [address] Lymphocytes/100 WBC (Bld) 34.1 % Normal 19-41 [facility] Comment on above: Performed By: #### L 100.0100, L500.4050 #### [facility] [address] [place], [address] MCH (RBC) [Entitic mass] 31.2 pg Normal 27.0-32.0 [facility] Comment on above: Performed By: #### L 100.0100, L500.4050 #### [facility] [address] [place], [address] MCHC (RBC) [Mass/Vol] 33.6 g/dL Normal 32-36 [facility] Comment on above: Performed By: #### L 100.0100, L500.4050 #### [facility] [address], [address] MCV (RBC) [Entitic vol] 92.9 fL Normal 81-99 [facility] Comment on above: Performed By: #### L 100.0100, L500.4050 #### [facility] [address] [place], [address] Monocytes/100 WBC (Bld) 6.2 % Normal 0-10 [facility] Comment on above: Performed By: #### L 100.0100, L500.4050 #### [facility] [address] [place], [address] Neutrophils/100 WBC (Bld) 57.8 % Normal 47-70 [facility] Comment on above: Performed By: #### L 100.0100, L500.4050 #### [facility] [address], [address] Nucleated RBC (Bld) [#/Vol] 0 10*3/uL Normal 0-5 [facility] Comment on above: Performed By: #### L 100.0100, L500.4050 #### [facility] [address] [place], [address] Platelet mean volume (Bld) [Entitic vol] 10.4 fL Normal 6.2-12.0 [facility] Comment on above: Performed By: #### L 100.0100, L500.4050 #### [facility] [address] [place], [address] Platelets (Bld) [#/Vol] 260 10*3/uL Normal 150-450 [facility] Comment on above: Performed By: #### L 100.0100, L500.4050 #### [facility] [address] [place], [address] RBC (Bld) [#/Vol] 4.49 10*6/uL Normal 4.2-5.4 [facility] Comment on above: Performed By: #### L 100.0100, L500.4050 #### [facility] [address] [place], [address] RDW SD 51.3 fl High 35.1-43.9 [facility] Comment on above: Performed By: #### L 100.0100, L500.4050 #### [facility] [address] [place], [address] WBC (Bld) [#/Vol] 5.5 10*3/uL Normal 4.4-11.0 [facility] Comment on above: Performed By: #### L 100.0100, L500.4050 #### [facility] [address] [place], [address] Carbon dioxide, total [Moles /volume] in Central venous bloodOrdered By: Yesenia Todd on 12-15-2024 CO2 [Moles/Vol] 23.5 mmol/L 21.0-32.0 [facility] Chloride assayOrdered By: Jeremias Todd on 12-15-2024 Chloride [Moles/Vol] 107 mmol/L 98-108 [facility] Prof ilon 12-15-2024 Albumin [Mass/Vol] 4.7 g/dL Normal 3.4-4.8 [facility] Comment on above: Performed By: #### L 100.0100, L500.4050 #### [facility] [address] [place], [address] Albumin/Globulin [Mass ratio] 1.6 {ratio} Normal 0.9-2.4 [facility] Comment on above: Performed By: #### L 100.0100, L500.4050 #### [facility] [address] [place], [address] ALK PHOS 84 U/L Normal 35-104 [facility] Comment on above: Performed By: #### L 100.0100, L500.4050 #### [facility] [address] [place], [address] ALT [Catalytic activity/Vol] 45 U/L High <=34 [facility] Comment on above: Performed By: #### L 100.0100, L500.4050 #### [facility] [address] [place], [address] AST [Catalytic activity/Vol] 34 U/L High <=31 [facility] Comment on above: Performed By: #### L 100.0100, L500.4050 #### [facility] [address], [address] Bilirubin [Mass/Vol] 0.65 mg/dL Normal 0.00-1.30 [facility] Comment on above: Performed By: #### L 100.0100, L500.4050 #### [facility] [address] [place], [address] BUN/CRE 18.6 RATIO Normal 10-20 [facility] Comment on above: Performed By: #### L 100.0100, L500.4050 #### [facility] [address] [place], [address] Calcium [Mass/Vol] 10.0 mg/dL Normal 7.6-11.0 [facility] Comment on above: Performed By: #### L 100.0100, L500.4050 #### [facility] [address] [place], [address] Chloride [Moles/Vol] 107 mmol/L Normal 98-108 [facility] Comment on above: Performed By: #### L 100.0100, L500.4050 #### [facility] [address] [place], [address] CO2 [Moles/Vol] 23.5 mmol/L Normal 21.0-32.0 [facility] Comment on above: Performed By: #### L 100.0100, L500.4050 #### [facility] [address] [place], [address] Creatinine [Mass/Vol] 0.81 mg/dL Normal 0.70-1.20 [facility] Comment on above: Performed By: #### L 100.0100, L500.4050 #### [facility] [address] [place], [address] GAP 11 Normal 5-15 [facility] Comment on above: Performed By: #### L 100.0100, L500.4050 #### [facility] [address], [address] GFR/1.73 sq M.predicted among non-blacks MDRD (S/P/Bld) [Vol rate/Area] 79 mL/min/{1.73_m2} Normal >60 [facility] Comment on above: Result Comment: mL/m in/1.73m2 CKD-EPI Creatinine Equation (2020) Performed By: #### L 100.0100, L500.4050 #### [facility] [address], [address] Globulin (S) [Mass/Vol] 3.0 g/dL Normal 2.2-4.2 [facility] Comment on above: Performed By: #### L 100.0100, L500.4050 #### [facility] [address] [place], [address] Glucose [Mass/Vol] 97 mg/dL Normal 70-99 [facility] Comment on above: Performed By: #### L 100.0100, L500.4050 #### [facility] [address] [place], [address] Potassium [Moles/Vol] 4.3 mmol/L Normal 3.3-5.1 [facility] Comment on above: Performed By: #### L 100.0100, L500.4050 #### [facility] [address] [place], [address] Sodium [Moles/Vol] 141 mmol/L Normal 133-145 [facility] Comment on above: Performed By: #### L 100.0100, L500.4050 #### [facility] [address] [place], [address] T PROT 7.7 g/dL Normal 5.9-8.4 [facility] Comment on above: Performed By: #### L 100.0100, L500.4050 #### [facility] [address] [place], [address] Urea nitrogen [Mass/Vol] 15 mg/dL Normal 4-19 [facility] Comment on above: Performed By: #### L 100.0100, L500.4050 #### [facility] [address] [place], [address] Eosinophil percentageOrdered By: Yesenia Todd on 12-15-2024 Eosinophils/100 WBC (Bld) 1.1 % 0-5 [facility] Erythrocyte distribution wid th ratioOrdered By: Yesenia Todd on 12-15-2024 Erythrocyte distribution width (RBC) [Ratio] 15.5 % High 11.6-14.6 [facility] Erythrocyte distribution wid th standard deviationOrdered By: Yesenia Todd on 12-15-2024 Erythrocyte distribution width (RBC) [Ratio] 51.3 fl High 35.1-43.9 [facility] Glomerular filtration rate ( GFR) estimation/1.73 sq m using serum, plasma, or whole bOrdered By: Yesenia Todd on 12-15-2024 GFR/1.73 sq M.predicted among non-blacks MDRD (S/P/Bld) [Vol rate/Area] 79 mL/min/{1.73_m2} >60 [facility] Comment on above: mL/min/1.73m2 CKD-EP I Creatinine Equation (2020) Hematocrit Auto (Bld) [Volum e fraction]Ordered By: Yesenia Todd on 12-15-2024 Hematocrit (Bld) [Volume fraction] 41.7 % 37-47 [facility] Hemoglobin measurementOrdere d By: Yesenia Todd on 12-15-2024 Hemoglobin (Bld) [Mass/Vol] 14.0 g/dL 12.0-15.0 [facility] Immature granulocytes/100 WB C Auto (Bld)Ordered By: Yesenia Todd on 12-15-2024 Immature granulocytes/100 WBC (Bld) 0.400 % 0.0-0.9 [facility] Comment on above: IG% - Immature Granu locytes (promyelocytes, myelocytes and metamyelocytes) > 1% indicates that a LEFT SHIFT is Present. Laboratory - Chemistry and C hemistry - challengeOrdered By: Yesenia Todd on 12-15-2024 AST [Catalytic activity/Vol] 34 U/L High <32 [facility] MCV (mean corpuscular volume ) determinationOrdered By: Yesenia Todd on 12-15-2024 MCV (RBC) [Entitic vol] 92.9 fL 81-99 [facility] Mean corpuscular hemoglobin (MCH) determinationOrdered By: Yesenia Todd on 12-15-2024 MCH (RBC) [Entitic mass] 31.2 pg 27.0-32.0 [facility] Mean corpuscular hemoglobin concentration (MCHC) determinationOrdered By: Yesenia Todd on 12-15-2024 MCHC (RBC) [Mass/Vol] 33.6 g/dL 32-36 [facility] Mean platelet volume determi nationOrdered By: Yesenia Todd on 12-15-2024 Platelet mean volume (Bld) [Entitic vol] 10.4 fL 6.2-12.0 [facility] Monocyte percentageOrdered B y: Yesenia Todd on 12-15-2024 Monocytes/100 WBC (Bld) 6.2 % 0-10 [facility] Neutrophil percentageOrdered By: Yesenia Todd on 12-15-2024 Neutrophils/100 WBC (Bld) 57.8 % 47-70 [facility] Nucleated red blood cell per centageOrdered By: Yesenia Todd on 12-15-2024 Nucleated RBC/100 WBC (Bld) [Ratio] 0 % 0-5 [facility] Platelet countOrdered By: Jeremias Todd on 12-15-2024 Platelets (Bld) [#/Vol] 260 10*3/uL 150-450 [facility] Potassium measurement (mass/ volume)Ordered By: Yesenia Todd on 12-15-2024 Potassium (Unsp spec) [Mass/Vol] 4.3 mmol/L 3.3-5.1 [facility] RBC Auto (Bld) [#/Vol]Ordere d By: Yesenia Todd on 12-15-2024 RBC (Bld) [#/Vol] 4.49 10*6/uL 4.2-5.4 [facility] Serum creatinine measurement (mass/volume)Ordered By: Yesenia Todd on 12-15-2024 Creatinine [Mass/Vol] 0.81 mg/dL 0.70-1.20 [facility] Serum globulin measurementOr dered By: Yesenia Todd on 12-15-2024 Globulin (S) [Mass/Vol] 3.0 g/dL 2.2-4.2 [facility] Serum glucose measurement (m ass/volume)Ordered By: Yesenia Todd on 12-15-2024 Glucose [Mass/Vol] 97 mg/dL 70-99 [facility] Serum or plasma alanine hernandez otransferase (ALT) measurementOrdered By: Yesenia Todd on 12-15-2024 ALT [Catalytic activity/Vol] 45 U/L High <35 [facility] Serum or plasma albumin saman urement (mass/volume)Ordered By: Yesenia Todd on 12-15-2024 Albumin [Mass/Vol] 4.7 g/dL 3.4-4.8 [facility] Serum or plasma albumin/glob ulin mass ratioOrdered By: Yesenia Todd on 12-15-2024 Albumin/Globulin [Mass ratio] 1.6 {ratio} 0.9-2.4 [facility] Serum or plasma alkaline nixon sphatase measurementOrdered By: Yesenia Todd on 12-15-2024 ALP [Catalytic activity/Vol] 84 U/L 35-104 [facility] Serum or plasma calcium saman urement (mass/volume)Ordered By: Yesenia Todd on 12-15-2024 Calcium [Mass/Vol] 10.0 mg/dL 7.6-11.0 [facility] Serum or plasma urea nitroge n measurement (mass/volume)Ordered By: Yesenia Todd on 12-15-2024 Urea nitrogen [Mass/Vol] 15 mg/dL 4-19 [facility] Sodium levelOrdered By: Vick Todd on 12-15-2024 Sodium [Moles/Vol] 141 mmol/L 133-145 [facility] Total proteinOrdered By: Yelena Todd on 12-15-2024 Protein [Mass/Vol] 7.7 g/dL 5.9-8.4 [facility] White blood cell (WBC) count Ordered By: Yesenia Todd on 12-15-2024 WBC (Bld) [#/Vol] 5.5 10*3/uL 4.4-11.0 [facility] Absolute lymphocyte countOrd ered By: Yesenia Todd on 09-01-2024 Lymphocytes Auto (Unsp spec) [#/Vol] 1.96 10*3/uL 0.83-4.51 [facility] Absolute neutrophil countOrd ered By: Yesenia Todd on 09-01-2024 Neutrophils (Bld) [#/Vol] 2.9 10*3/uL 2.0-7.7 [facility] Automated lymphocyte count a s percentage of total leukocytesOrdered By: Yesenia Todd on 09-01-2024 Lymphocytes/100 WBC Auto (Unsp spec) 34.6 % 19-41 [facility] BUN/creatinine ratioOrdered By: Yesenia Todd on 09-01-2024 Urea nitrogen/Creatinine [Mass ratio] 12.1 mg/mg 10-20 [facility] Basophil percentageOrdered B y: Yesenia Todd on 09-01-2024 Basophils/100 WBC (Bld) 0.4 % 0-1 [facility] Bilirubin, totalOrdered By: Yesenia Todd on 09-01-2024 Bilirubin [Mass/Vol] 0.66 mg/dL 0.00-1.30 [facility] CBC W/Diff, Automatedon 08-06 Absolute Lymph 1.96 X10 3/uL Normal 0.83-4.51 [facility] Comment on above: Performed By: #### L 100.0100, L500.4050 #### [facility] [address], [address] Absolute Neut 2.9 X10 3/uL Normal 2.0-7.7 [facility] Comment on above: Performed By: #### L 100.0100, L500.4050 #### [facility] [address] [place], [address] Basophils/100 WBC (Bld) 0.4 % Normal 0-1 [facility] Comment on above: Performed By: #### L 100.0100, L500.4050 #### [facility] [address] [place], [address] Eosinophils/100 WBC (Bld) 1.8 % Normal 0-5 [facility] Comment on above: Performed By: #### L 100.0100, L500.4050 #### [facility] [address] [place], [address] Erythrocyte distribution width (RBC) [Ratio] 15.0 % High 11.6-14.6 [facility] Comment on above: Performed By: #### L 100.0100, L500.4050 #### [facility] [address], [address] Hematocrit (Bld) [Volume fraction] 40.4 % Normal 37-47 [facility] Comment on above: Performed By: #### L 100.0100, L500.4050 #### [facility] [address] [place], [address] Hemoglobin (Bld) [Mass/Vol] 13.8 g/dL Normal 12.0-15.0 [facility] Comment on above: Performed By: #### L 100.0100, L500.4050 #### [facility] [address] [place], [address] IG% 0.500 Normal 0.0-0.9 [facility] Comment on above: Result Comment: IG% - Immature Granulocytes (promyelocytes, myelocytes and metamyelocytes) > 1% indicates that a LEFT SHIFT is Present. Performed By: #### L 100.0100, L500.4050 #### [facility] [address] [place], [address] Lymphocytes/100 WBC (Bld) 34.6 % Normal 19-41 [facility] Comment on above: Performed By: #### L 100.0100, L500.4050 #### [facility] [address] [place], [address] MCH (RBC) [Entitic mass] 31.8 pg Normal 27.0-32.0 [facility] Comment on above: Performed By: #### L 100.0100, L500.4050 #### [facility] [address] [place], [address] MCHC (RBC) [Mass/Vol] 34.2 g/dL Normal 32-36 [facility] Comment on above: Performed By: #### L 100.0100, L500.4050 #### [facility] [address] [place], [address] MCV (RBC) [Entitic vol] 93.1 fL Normal 81-99 [facility] Comment on above: Performed By: #### L 100.0100, L500.4050 #### [facility] [address] [place], [address] Monocytes/100 WBC (Bld) 10.9 % High 0-10 [facility] Comment on above: Performed By: #### L 100.0100, L500.4050 #### [facility] [address], [address] Neutrophils/100 WBC (Bld) 51.8 % Normal 47-70 [facility] Comment on above: Performed By: #### L 100.0100, L500.4050 #### [facility] [address] [place], [address] Nucleated RBC (Bld) [#/Vol] 0 10*3/uL Normal 0-5 [facility] Comment on above: Performed By: #### L 100.0100, L500.4050 #### [facility] [address] [place], [address] Platelet mean volume (Bld) [Entitic vol] 10.4 fL Normal 6.2-12.0 [facility] Comment on above: Performed By: #### L 100.0100, L500.4050 #### [facility] [address] [place], [address] Platelets (Bld) [#/Vol] 224 10*3/uL Normal 150-450 [facility] Comment on above: Performed By: #### L 100.0100, L500.4050 #### [facility] [address], [address] RBC (Bld) [#/Vol] 4.34 10*6/uL Normal 4.2-5.4 [facility] Comment on above: Performed By: #### L 100.0100, L500.4050 #### [facility] [address] [place], [address] RDW SD 49.4 fl High 35.1-43.9 [facility] Comment on above: Performed By: #### L 100.0100, L500.4050 #### [facility] [address] [place], [address] WBC (Bld) [#/Vol] 5.7 10*3/uL Normal 4.4-11.0 [facility] Comment on above: Performed By: #### L 100.0100, L500.4050 #### [facility] [address] [place], [address] Carbon dioxide measurementOr dered By: Yesenia Todd on 09-01-2024 CO2 [Moles/Vol] 22.2 mmol/L 22.0-29.0 [facility] Chloride measurementOrdered By: Yesenia Todd on 09-01-2024 Chloride [Moles/Vol] 104 mmol/L 96-108 [facility] Prof ilon 09-01-2024 Albumin [Mass/Vol] 4.5 g/dL Normal 3.4-4.8 [facility] Comment on above: Performed By: #### L 100.0100, L500.4050 #### [facility] [address] [place], [address] Albumin/Globulin [Mass ratio] 1.5 {ratio} Normal 0.9-2.4 [facility] Comment on above: Performed By: #### L 100.0100, L500.4050 #### [facility] [address] [place], [address] ALK PHOS 79 U/L Normal 35-104 [facility] Comment on above: Performed By: #### L 100.0100, L500.4050 #### [facility] [address] [place], [address] ALT [Catalytic activity/Vol] 33 U/L Normal <=34 [facility] Comment on above: Result Comment: Hemo lysis present, Results??could be affected. ?? Performed By: #### L 100.0100, L500.4050 #### [facility] [address] [place], [address] Anion gap [Moles/Vol] 12 mmol/L Normal 5-15 [facility] Comment on above: Performed By: #### L 100.0100, L500.4050 #### [facility] [address] [place], [address] AST [Catalytic activity/Vol] 42 U/L High <=31 [facility] Comment on above: Result Comment: Hemo lysis present, Results??could be affected. ?? Performed By: #### L 100.0100, L500.4050 #### [facility] [address] [place], [address] Bilirubin [Mass/Vol] 0.66 mg/dL Normal 0.00-1.30 [facility] Comment on above: Performed By: #### L 100.0100, L500.4050 #### [facility] [address] [place], [address] BUN/CRE 12.1 RATIO Normal 10-20 [facility] Comment on above: Performed By: #### L 100.0100, L500.4050 #### [facility] [address] [place], [address] Calcium [Mass/Vol] 10.0 mg/dL Normal 7.6-11.0 [facility] Comment on above: Performed By: #### L 100.0100, L500.4050 #### [facility] [address] [place], [address] Chloride [Moles/Vol] 104 mmol/L Normal 96-108 [facility] Comment on above: Performed By: #### L 100.0100, L500.4050 #### [facility] [address] [place], [address] CO2 [Moles/Vol] 22.2 mmol/L Normal 22.0-29.0 [facility] Comment on above: Performed By: #### L 100.0100, L500.4050 #### [facility] [address] [place], [address] Creatinine [Mass/Vol] 0.78 mg/dL Normal 0.70-1.20 [facility] Comment on above: Performed By: #### L 100.0100, L500.4050 #### [facility] [address] [place], [address] GFR/1.73 sq M.predicted among non-blacks MDRD (S/P/Bld) [Vol rate/Area] 82 mL/min/{1.73_m2} Normal >60 [facility] Comment on above: Result Comment: mL/m in/1.73m2 CKD-EPI Creatinine Equation (2020) Performed By: #### L 100.0100, L500.4050 #### [facility] [address] [place], [address] Globulin (S) [Mass/Vol] 3.0 g/dL Normal 2.2-4.2 [facility] Comment on above: Performed By: #### L 100.0100, L500.4050 #### [facility] [address] [place], [address] Glucose [Mass/Vol] 99 mg/dL Normal 70-99 [facility] Comment on above: Performed By: #### L 100.0100, L500.4050 #### [facility] [address] [place], [address] Potassium [Moles/Vol] 4.3 mmol/L Normal 3.3-5.1 [facility] Comment on above: Result Comment: Hemo lysis present, Results??could be affected. ?? Performed By: #### L 100.0100, L500.4050 #### [facility] [address] [place], [address] Sodium [Moles/Vol] 138 mmol/L Normal 133-145 [facility] Comment on above: Performed By: #### L 100.0100, L500.4050 #### [facility] [address] [place], [address] T PROT 7.5 g/dL Normal 5.9-8.4 [facility] Comment on above: Performed By: #### L 100.0100, L500.4050 #### [facility] [address] [place], [address] Urea nitrogen [Mass/Vol] 9 mg/dL Normal 4-19 [facility] Comment on above: Performed By: #### L 100.0100, L500.4050 #### [facility] [address] [place], [address] Eosinophil percentageOrdered By: Yesenia Todd on 09-01-2024 Eosinophils/100 WBC (Bld) 1.8 % 0-5 [facility] Erythrocyte distribution wid th ratioOrdered By: Yesenia Perez on 09-01-2024 Erythrocyte distribution width (RBC) [Ratio] 15.0 % High 11.6-14.6 [facility] Erythrocyte distribution wid th standard deviationOrdered By: Yesenia Todd on 09-01-2024 Erythrocyte distribution width (RBC) [Entitic vol] 49.4 fL High 35.1-43.9 [facility] Erythrocyte distribution width (RBC) [Ratio] 49.4 fl High 35.1-43.9 [facility] GFR/1.73 sq M.predicted evelin g non-blacks MDRD (S/P/Bld) [Vol rate/Area]Ordered By: Yesenia Todd on 09-01-2024 Estimated GFR (MDRD) Non-Af Amer 82 >60 [facility] Comment on above: mL/min/1.73m2 CKD-EP I Creatinine Equation (2020) Glomerular filtration rate ( GFR) estimation/1.73 sq m using serum, plasma, or whole bOrdered By: Yesenia Todd on 09-01-2024 GFR/1.73 sq M.predicted among non-blacks MDRD (S/P/Bld) [Vol rate/Area] 82 mL/min/{1.73_m2} >60 [facility] Comment on above: mL/min/1.73m2 CKD-EP I Creatinine Equation (2020) Hematocrit Auto (Bld) [Volum e fraction]Ordered By: Yesenia Todd on 09-01-2024 Hematocrit (Bld) [Volume fraction] 40.4 % 37-47 [facility] Hemoglobin measurementOrdere d By: Yesenia Todd on 09-01-2024 Hemoglobin (Bld) [Mass/Vol] 13.8 g/dL 12.0-15.0 [facility] Immature granulocytes/100 WB C Auto (Bld)Ordered By: Yesenia Todd on 09-01-2024 Immature granulocytes/100 WBC (Bld) 0.500 % 0.0-0.9 [facility] Comment on above: IG% - Immature Granu locytes (promyelocytes, myelocytes and metamyelocytes) > 1% indicates that a LEFT SHIFT is Present. Laboratory - Chemistry and C hemistry - challengeOrdered By: Yesenia Todd on 09-01-2024 AST [Catalytic activity/Vol] 42 U/L High <32 [facility] Comment on above: Hemolysis present, R esults could be affected. Lymphocytes Auto (Unsp spec) [#/Vol]Ordered By: Yesenia Todd on 09-01-2024 Lymphocytes (Bld) [#/Vol] 1.96 10*3/uL 0.83-4.51 [facility] Lymphocytes/100 WBC Auto (Un sp spec)Ordered By: Yesenia Todd on 09-01-2024 Lymphocytes/100 WBC (Bld) 34.6 % 19-41 [facility] MCV (mean corpuscular volume ) determinationOrdered By: Yesenia Todd on 09-01-2024 MCV (RBC) [Entitic vol] 93.1 fL 81-99 [facility] Mean corpuscular hemoglobin (MCH) determinationOrdered By: Yesenia Todd on 09-01-2024 MCH (RBC) [Entitic mass] 31.8 pg 27.0-32.0 [facility] Mean corpuscular hemoglobin concentration (MCHC) determinationOrdered By: Yesenia Todd on 09-01-2024 MCHC (RBC) [Mass/Vol] 34.2 g/dL 32-36 [facility] Mean platelet volume determi nationOrdered By: Yesenia Todd on 09-01-2024 Platelet mean volume (Bld) [Entitic vol] 10.4 fL 6.2-12.0 [facility] Monocyte percentageOrdered B y: Yesenia Todd on 09-01-2024 Monocytes/100 WBC (Bld) 10.9 % High 0-10 [facility] Neutrophil percentageOrdered By: Yesenia Todd on 09-01-2024 Neutrophils/100 WBC (Bld) 51.8 % 47-70 [facility] Nucleated red blood cell per centageOrdered By: Yesenia Todd on 09-01-2024 Nucleated RBC/100 WBC (Bld) [Ratio] 0 % 0-5 [facility] Platelet countOrdered By: Jeremias Todd on 09-01-2024 Platelets (Bld) [#/Vol] 224 10*3/uL 150-450 [facility] RBC Auto (Bld) [#/Vol]Ordere d By: Yesenia Todd on 09-01-2024 RBC (Bld) [#/Vol] 4.34 10*6/uL 4.2-5.4 [facility] Serum creatinine measurement (mass/volume)Ordered By: Yesenia Todd on 09-01-2024 Creatinine [Mass/Vol] 0.78 mg/dL 0.70-1.20 [facility] Serum globulin measurementOr dered By: Yesenia Todd on 09-01-2024 Globulin (S) [Mass/Vol] 3.0 g/dL 2.2-4.2 [facility] Serum glucose measurement (m ass/volume)Ordered By: Yesenia Todd on 09-01-2024 Glucose [Mass/Vol] 99 mg/dL 70-99 [facility] Serum or plasma alanine hernandez otransferase (ALT) measurementOrdered By: Yesenia Todd on 09-01-2024 ALT [Catalytic activity/Vol] 33 U/L <35 [facility] Comment on above: Hemolysis present, R esults could be affected. Serum or plasma albumin saman urement (mass/volume)Ordered By: Yesenia Todd on 09-01-2024 Albumin [Mass/Vol] 4.5 g/dL 3.4-4.8 [facility] Serum or plasma albumin/glob ulin mass ratioOrdered By: Yesenia Todd on 09-01-2024 Albumin/Globulin [Mass ratio] 1.5 {ratio} 0.9-2.4 [facility] Serum or plasma alkaline nixon sphatase measurementOrdered By: Yesenia Todd on 09-01-2024 ALP [Catalytic activity/Vol] 79 U/L 35-104 [facility] Serum or plasma anion gap de termination (moles/volume)Ordered By: Yesenia Todd on 09-01-2024 Anion gap [Moles/Vol] 12 mmol/L 5-15 [facility] Serum or plasma calcium saman urement (mass/volume)Ordered By: Yesenia Todd on 09-01-2024 Calcium [Mass/Vol] 10.0 mg/dL 7.6-11.0 [facility] Serum or plasma potassium me asurementOrdered By: Yesenia Todd on 09-01-2024 Potassium [Moles/Vol] 4.3 mmol/L 3.3-5.1 [facility] Comment on above: Hemolysis present, R esults could be affected. Serum or plasma sodium measu rement (moles/volume)Ordered By: Yesenia Todd on 09-01-2024 Sodium [Moles/Vol] 138 mmol/L 133-145 [facility] Serum or plasma urea nitroge n measurement (mass/volume)Ordered By: Yesenia Todd on 09-01-2024 Urea nitrogen [Mass/Vol] 9 mg/dL 4-19 [facility] Total proteinOrdered By: Yelena Todd on 09-01-2024 Protein [Mass/Vol] 7.5 g/dL 5.9-8.4 [facility] White blood cell (WBC) count Ordered By: Yesenia Todd on 09-01-2024 WBC (Bld) [#/Vol] 5.7 10*3/uL 4.4-11.0 [facility] Foot min 3 Viewson 4 Foot min 3 Views [facility] [address] [place] [address] Foot min 3 Views MR#: [id number] Acct: [id number] Name: ROMA BOSCH Rep #: [id number] : 1955 F 69 From: Mohinder ortiz DO PCP: JEREMIAS Garcia Status: DEP AMB Study: Foot min 3 Views Date of Exam: 06/14/24 Exam# [id number] Ordering Dr: Dawna Espinoza DPM [id number] EXAM: XR RIGHT FOOT COMPLETE, 3 OR [...] No acute osseous findings. Electronically Signed: Mohinder Amin DO at 23:23 EST , CC: JAIDA Espinoza; JEREMIAS Garcia Senior Packaging Engineer: Signed Normal [facility] Absolute neutrophil countOrd ered By: Yesenia Todd on 06-05-2024 Neutrophils (Bld) [#/Vol] 2.4 10*3/uL 2.0-7.7 [facility] Albumin to globulin ratioOrd ered By: Yesenia Todd on 06-05-2024 Albumin/Globulin [Mass ratio] 1.2 {ratio} 0.9-2.4 [facility] Basophil percentageOrdered B y: Yesenia Todd on 06-05-2024 Basophils/100 WBC (Bld) 0.8 % 0-1 [facility] Bilirubin, totalOrdered By: Yesenia Todd on 06-05-2024 Bilirubin [Mass/Vol] 0.80 mg/dL 0.20-1.00 [facility] Comment on above: For patients on eltr ombopag therapy, use of Dimension [place] TBIL is not recommended. Blood urea nitrogen (BUN)/cr eatinine ratioOrdered By: Yesenia Todd on 06-05-2024 Urea nitrogen/Creatinine [Mass ratio] 16.4 mg/mg 10-20 [facility] CBC W/Diff, Automatedon Absolute Lymph 1.97 X10 3/uL Normal 0.83-4.51 [facility] Comment on above: Performed By: #### L 500.4050, L100.0100 #### [facility] [address] [place], [address] Absolute Neut 2.4 X10 3/uL Normal 2.0-7.7 [facility] Comment on above: Performed By: #### L 500.4050, L100.0100 #### [facility] [address] [facility] [place], [address] Basophils/100 WBC (Bld) 0.8 % Normal 0-1 [facility] Comment on above: Performed By: #### L 500.4050, L100.0100 #### [facility] [address] [place], [address] Eosinophils/100 WBC (Bld) 1.2 % Normal 0-5 [facility] Comment on above: Performed By: #### L 500.4050, L100.0100 #### [facility] [address] [place], [address] Erythrocyte distribution width (RBC) [Ratio] 15.1 % High 11.6-14.6 [facility] Comment on above: Performed By: #### L 500.4050, L100.0100 #### [facility] [address] [place], [address] Hematocrit (Bld) [Volume fraction] 41.7 % Normal 37-47 [facility] Comment on above: Performed By: #### L 500.4050, L100.0100 #### [facility] [address] [place], [address] Hemoglobin (Bld) [Mass/Vol] 13.7 g/dL Normal 12.0-15.0 [facility] Comment on above: Performed By: #### L 500.4050, L100.0100 #### [facility] [address] [place], [address] IG% 0.600 Normal 0.0-0.9 [facility] Comment on above: Result Comment: IG% - Immature Granulocytes (promyelocytes, myelocytes and metamyelocytes) > 1% indicates that a LEFT SHIFT is Present. Performed By: #### L 500.4050, L100.0100 #### [facility] [address] [place], [address] Lymphocytes/100 WBC (Bld) 40.7 % Normal 19-41 [facility] Comment on above: Performed By: #### L 500.4050, L100.0100 #### [facility] [address] [place], [address] MCH (RBC) [Entitic mass] 30.7 pg Normal 27.0-32.0 [facility] Comment on above: Performed By: #### L 500.4050, L100.0100 #### [facility] [address] [place], [address] MCHC (RBC) [Mass/Vol] 32.9 g/dL Normal 32-36 [facility] Comment on above: Performed By: #### L 500.4050, L100.0100 #### [facility] [address] [place], [address] MCV (RBC) [Entitic vol] 93.5 fL Normal 81-99 [facility] Comment on above: Performed By: #### L 500.4050, L100.0100 #### [facility] [address] [place], [address] Monocytes/100 WBC (Bld) 6.4 % Normal 0-10 [facility] Comment on above: Performed By: #### L 500.4050, L100.0100 #### [facility] [address] [place], [address] Neutrophils/100 WBC (Bld) 50.3 % Normal 47-70 [facility] Comment on above: Performed By: #### L 500.4050, L100.0100 #### [facility] [address] [place], [address] Nucleated RBC (Bld) [#/Vol] 0 10*3/uL Normal 0-5 [facility] Comment on above: Performed By: #### L 500.4050, L100.0100 #### [facility] [address] [place], [address] Platelet mean volume (Bld) [Entitic vol] 10.4 fL Normal 6.2-12.0 [facility] Comment on above: Performed By: #### L 500.4050, L100.0100 #### [facility] [address] [place], [address] Platelets (Bld) [#/Vol] 234 10*3/uL Normal 150-450 [facility] Comment on above: Performed By: #### L 500.4050, L100.0100 #### [facility] [address] [place], [address] RBC (Bld) [#/Vol] 4.46 10*6/uL Normal 4.2-5.4 [facility] Comment on above: Performed By: #### L 500.4050, L100.0100 #### [facility] [address] [place], [address] RDW SD 50.7 fl High 35.1-43.9 [facility] Comment on above: Performed By: #### L 500.4050, L100.0100 #### [facility] [address] [place], [address] WBC (Bld) [#/Vol] 4.8 10*3/uL Normal 4.4-11.0 [facility] Comment on above: Performed By: #### L 500.4050, L100.0100 #### [facility] [address] [place], [address] Carbon dioxide measurementOr dered By: Yesenia Todd on 06-05-2024 CO2 [Moles/Vol] 29.0 mmol/L 21.0-32.0 [facility] Chloride measurementOrdered By: Yesenia Todd on 06-05-2024 Chloride [Moles/Vol] 109 mmol/L High 98-107 [facility] Prof ilon 06-05-2024 Albumin [Mass/Vol] 4.1 g/dL Normal 3.2-5.0 [facility] Comment on above: Performed By: #### L 500.4050, L100.0100 #### [facility] [address] [place], [address] Albumin/Globulin [Mass ratio] 1.2 {ratio} Normal 0.9-2.4 [facility] Comment on above: Performed By: #### L 500.4050, L100.0100 #### [facility] [address] [place], [address] ALK P 90 U/L Normal 45-117 [facility] Comment on above: Performed By: #### L 500.4050, L100.0100 #### [facility] [address] [place], [address] ALT [Catalytic activity/Vol] 47 U/L Normal 13-56 [facility] Comment on above: Performed By: #### L 500.4050, L100.0100 #### [facility] [address], [address] AST [Catalytic activity/Vol] 31 U/L Normal 15-37 [facility] Comment on above: Performed By: #### L 500.4050, L100.0100 #### [facility] [address] [place], [address] Bilirubin [Mass/Vol] 0.80 mg/dL Normal 0.20-1.00 [facility] Comment on above: Result Comment: For patients on eltrombopag therapy, use of Dimension [place] TBIL is not recommended. Performed By: #### L 500.4050, L100.0100 #### [facility] [address] [place], [address] BUN/CRE 16.4 RATIO Normal 10-20 [facility] Comment on above: Performed By: #### L 500.4050, L100.0100 #### [facility] [address] [place], [address] CA,Total 9.7 mg/dL Normal 8.5-10.1 [facility] Comment on above: Performed By: #### L 500.4050, L100.0100 #### [facility] [address] [place], [address] Chloride [Moles/Vol] 109 mmol/L High 98-107 [facility] Comment on above: Performed By: #### L 500.4050, L100.0100 #### [facility] [address] [place], [address] CO2 [Moles/Vol] 29.0 mmol/L Normal 21.0-32.0 [facility] Comment on above: Performed By: #### L 500.4050, L100.0100 #### [facility] [address] [place], [address] Creatinine [Mass/Vol] 0.73 mg/dL Normal 0.55-1.02 [facility] Comment on above: Result Comment: The validity of the calculated GFR GFRAA in patients over 70 years has not been determined. Clinical correlation is essential. Performed By: #### L 500.4050, L100.0100 #### [facility] [address] [place], [address] EST GFR - AA 101 mL/min Normal >60 [facility] Comment on above: Result Comment: Afri can Palestinian GFR Calc Performed By: #### L 500.4050, L100.0100 #### [facility] [address] [place], [address] GAP 2 Low 5-15 [facility] Comment on above: Performed By: #### L 500.4050, L100.0100 #### [facility] [address] [place], [address] GFR/1.73 sq M.predicted among non-blacks MDRD (S/P/Bld) [Vol rate/Area] 84 mL/min/{1.73_m2} Normal >60 [facility] Comment on above: Result Comment: Non- GFR Calc Performed By: #### L 500.4050, L100.0100 #### [facility] [address] [place], [address] Globulin (S) [Mass/Vol] 3.4 g/dL Normal 2.2-4.2 [facility] Comment on above: Performed By: #### L 500.4050, L100.0100 #### [facility] [address] [place], [address] Glucose [Mass/Vol] 93 mg/dL Normal 74-106 [facility] Comment on above: Performed By: #### L 500.4050, L100.0100 #### [facility] [address] [place], [address] Potassium [Moles/Vol] 4.1 mmol/L Normal 3.5-5.1 [facility] Comment on above: Performed By: #### L 500.4050, L100.0100 #### [facility] [address] [place], [address] Sodium [Moles/Vol] 140 mmol/L Normal 136-145 [facility] Comment on above: Performed By: #### L 500.4050, L100.0100 #### [facility] [address] [place], [address] T PROT 7.5 g/dL Normal 6.4-8.2 [facility] Comment on above: Performed By: #### L 500.4050, L100.0100 #### [facility] [address] [place], [address] Urea nitrogen [Mass/Vol] 12 mg/dL Normal 7-18 [facility] Comment on above: Performed By: #### L 500.4050, L100.0100 #### [facility] [address] [place], [address] Eosinophil percentageOrdered By: Yesenia Todd on 06-05-2024 Eosinophils/100 WBC (Bld) 1.2 % 0-5 [facility] Erythrocyte distribution wid th ratioOrdered By: Yesenia Todd on 06-05-2024 Erythrocyte distribution width (RBC) [Ratio] 15.1 % High 11.6-14.6 [facility] Erythrocyte distribution wid th standard deviationOrdered By: Yesenia Todd on 06-05-2024 Erythrocyte distribution width (RBC) [Entitic vol] 50.7 fL High 35.1-43.9 [facility] Estimated glomerular filtrat ion rate (GFR) AmericanOrdered By: Yesenia Todd on 06-05-2024 Estimated GFR (MDRD) Amer 101 mL/min >60 [facility] Comment on above: GFR Calc Glomerular filtration rate ( GFR) estimationOrdered By: Yesenia Todd on 06-05-2024 Estimated GFR (MDRD) Non-Af Amer 84 mL/min >60 [facility] Comment on above: Non- GFR Calc Glucose measurementOrdered B y: Yesenia Todd on 06-05-2024 Glucose [Mass/Vol] 93 mg/dL 74-106 [facility] Hematocrit Auto (Bld) [Volum e fraction]Ordered By: Yesenia Todd on 06-05-2024 Hematocrit (Bld) [Volume fraction] 41.7 % 37-47 [facility] Hemoglobin measurementOrdere d By: Yesenia Todd on 06-05-2024 Hemoglobin (Bld) [Mass/Vol] 13.7 g/dL 12.0-15.0 [facility] Immature granulocytes/100 WB C Auto (Bld)Ordered By: Yesenia Todd on 06-05-2024 Immature granulocytes/100 WBC (Bld) 0.600 % 0.0-0.9 [facility] Comment on above: IG% - Immature Granu locytes (promyelocytes, myelocytes and metamyelocytes) > 1% indicates that a LEFT SHIFT is Present. Laboratory - Chemistry and C hemistry - challengeOrdered By: Yesenia Todd on 06-05-2024 AST [Catalytic activity/Vol] 31 U/L 15-37 [facility] Lymphocytes Auto (Unsp spec) [#/Vol]Ordered By: Yesenia Todd on 06-05-2024 Lymphocytes (Bld) [#/Vol] 1.97 10*3/uL 0.83-4.51 [facility] Lymphocytes/100 WBC Auto (Un sp spec)Ordered By: Yesenia Todd on 06-05-2024 Lymphocytes/100 WBC (Bld) 40.7 % 19-41 [facility] MCV (mean corpuscular volume ) determinationOrdered By: Yesenia Todd on 06-05-2024 MCV (RBC) [Entitic vol] 93.5 fL 81-99 [facility] Mean corpuscular hemoglobin (MCH) determinationOrdered By: Yesenia Todd on 06-05-2024 MCH (RBC) [Entitic mass] 30.7 pg 27.0-32.0 [facility] Mean corpuscular hemoglobin concentration (MCHC) determinationOrdered By: Yesenia Todd on 06-05-2024 MCHC (RBC) [Mass/Vol] 32.9 g/dL 32-36 [facility] Mean platelet volume determi nationOrdered By: Yesenia Todd on 06-05-2024 Platelet mean volume (Bld) [Entitic vol] 10.4 fL 6.2-12.0 [facility] Monocyte percentageOrdered B y: Yesenia Todd on 06-05-2024 Monocytes/100 WBC (Bld) 6.4 % 0-10 [facility] Neutrophil percentageOrdered By: Yesenia Todd on 06-05-2024 Neutrophils/100 WBC (Bld) 50.3 % 47-70 [facility] Nucleated red blood cell per centageOrdered By: Yesenia Todd on 06-05-2024 Nucleated RBC/100 WBC (Bld) [Ratio] 0 % 0-5 [facility] Platelet countOrdered By: Jeremias Todd on 06-05-2024 Platelets (Bld) [#/Vol] 234 10*3/uL 150-450 [facility] Potassium measurementOrdered By: Yesenia Todd on 06-05-2024 Potassium [Moles/Vol] 4.1 mmol/L 3.5-5.1 [facility] RBC Auto (Bld) [#/Vol]Ordere d By: Yesenia Todd on 06-05-2024 RBC (Bld) [#/Vol] 4.46 10*6/uL 4.2-5.4 [facility] Serum anion gap measurementO rdered By: Yesenia Todd on 06-05-2024 Anion gap [Moles/Vol] 2 mmol/L Low 5-15 [facility] Serum globulin measurementOr dered By: Yesenia Todd on 06-05-2024 Globulin (S) [Mass/Vol] 3.4 g/dL 2.2-4.2 [facility] Serum or plasma alanine hernandez otransferase (ALT) measurementOrdered By: Yesenia Todd on 06-05-2024 ALT [Catalytic activity/Vol] 47 U/L 13-56 [facility] Serum or plasma albumin saman urement (mass/volume)Ordered By: Yesenia Todd on 06-05-2024 Albumin [Mass/Vol] 4.1 g/dL 3.2-5.0 [facility] Serum or plasma alkaline nixon sphatase measurementOrdered By: Yesenia Todd on 06-05-2024 ALP [Catalytic activity/Vol] 90 U/L 45-117 [facility] Serum or plasma calcium saman urement (mass/volume)Ordered By: Yesenia Todd on 06-05-2024 Calcium [Mass/Vol] 9.7 mg/dL 8.5-10.1 [facility] Serum or plasma creatinine m easurement (mass/volume)Ordered By: Yesenia Todd on 06-05-2024 Creatinine [Mass/Vol] 0.73 mg/dL 0.55-1.02 [facility] Comment on above: The validity of the calculated GFR & GFRAA in patients over 70 years has not been determined. Clinical correlation is essential. Serum or plasma urea nitroge n measurement (mass/volume)Ordered By: Yesenia Todd on 06-05-2024 Urea nitrogen [Mass/Vol] 12 mg/dL 7-18 [facility] Sodium levelOrdered By: Vick Todd on 06-05-2024 Sodium [Moles/Vol] 140 mmol/L 136-145 [facility] Total proteinOrdered By: Yelena Todd on 06-05-2024 Protein [Mass/Vol] 7.5 g/dL 6.4-8.2 [facility] White blood cell (WBC) count Ordered By: Yesenia Todd on 06-05-2024 WBC (Bld) [#/Vol] 4.8 10*3/uL 4.4-11.0 [facility] CBC W/Diff, Automatedon 09-0 Absolute Lymph 2.07 X10 3/uL Normal 0.83-4.51 [facility] Comment on above: Performed By: #### L 500.4050, L100.0100 #### [facility] [address], [address] Absolute Neut 3.8 X10 3/uL Normal 2.0-7.7 [facility] Comment on above: Performed By: #### L 500.4050, L100.0100 #### [facility] [address] [place], [address] Basophils/100 WBC (Bld) 0.3 % Normal 0-1 [facility] Comment on above: Performed By: #### L 500.4050, L100.0100 #### [facility] [address] [place], [address] Eosinophils/100 WBC (Bld) 1.4 % Normal 0-5 [facility] Comment on above: Performed By: #### L 500.4050, L100.0100 #### [facility] [address] [place], [address] Erythrocyte distribution width (RBC) [Ratio] 14.1 % Normal 11.6-14.6 [facility] Comment on above: Performed By: #### L 500.4050, L100.0100 #### [facility] [address] [place], [address] Hematocrit (Bld) [Volume fraction] 43.8 % Normal 37-47 [facility] Comment on above: Performed By: #### L 500.4050, L100.0100 #### [facility] [address] [place], [address] Hemoglobin (Bld) [Mass/Vol] 14.3 g/dL Normal 12.0-15.0 [facility] Comment on above: Performed By: #### L 500.4050, L100.0100 #### [facility] [address] [place], [address] IG% 0.500 Normal 0.0-0.9 [facility] Comment on above: Result Comment: IG% - Immature Granulocytes (promyelocytes, myelocytes and metamyelocytes) > 1% indicates that a LEFT SHIFT is Present. Performed By: #### L 500.4050, L100.0100 #### [facility] [address] [place], [address] Lymphocytes/100 WBC (Bld) 31.7 % Normal 19-41 [facility] Comment on above: Performed By: #### L 500.4050, L100.0100 #### [facility] [address] [place], [address] MCH (RBC) [Entitic mass] 30.9 pg Normal 27.0-32.0 [facility] Comment on above: Performed By: #### L 500.4050, L100.0100 #### [facility] [address] [place], [address] MCHC (RBC) [Mass/Vol] 32.6 g/dL Normal 32-36 [facility] Comment on above: Performed By: #### L 500.4050, L100.0100 #### [facility] [address] [place], [address] MCV (RBC) [Entitic vol] 94.6 fL Normal 81-99 [facility] Comment on above: Performed By: #### L 500.4050, L100.0100 #### [facility] [address] [place], [address] Monocytes/100 WBC (Bld) 8.3 % Normal 0-10 [facility] Comment on above: Performed By: #### L 500.4050, L100.0100 #### [facility] [address] [place], [address] Neutrophils/100 WBC (Bld) 57.8 % Normal 47-70 [facility] Comment on above: Performed By: #### L 500.4050, L100.0100 #### [facility] [address] [place], [address] Nucleated RBC (Bld) [#/Vol] 0 10*3/uL Normal 0-5 [facility] Comment on above: Performed By: #### L 500.4050, L100.0100 #### [facility] [address] [place], [address] Platelet mean volume (Bld) [Entitic vol] 10.6 fL Normal 6.2-12.0 [facility] Comment on above: Performed By: #### L 500.4050, L100.0100 #### [facility] [address] [place], [address] Platelets (Bld) [#/Vol] 294 10*3/uL Normal 150-450 [facility] Comment on above: Performed By: #### L 500.4050, L100.0100 #### [facility] [address] [place], [address] RBC (Bld) [#/Vol] 4.63 10*6/uL Normal 4.2-5.4 [facility] Comment on above: Performed By: #### L 500.4050, L100.0100 #### [facility] [address] [place], [address] RDW SD 47.9 fl High 35.1-43.9 [facility] Comment on above: Performed By: #### L 500.4050, L100.0100 #### [facility] [address] [place], [address] WBC (Bld) [#/Vol] 6.5 10*3/uL Normal 4.4-11.0 [facility] Comment on above: Performed By: #### L 500.4050, L100.0100 #### [facility] [address] [place], [address] Comprehensive Metabolic Prof ilon 03-13-2024 Albumin [Mass/Vol] 3.9 g/dL Normal 3.2-5.0 [facility] Comment on above: Performed By: #### L 500.4050, L100.0100 #### [facility] [address] [place], [address] Albumin/Globulin [Mass ratio] 1.0 {ratio} Normal 0.9-2.4 [facility] Comment on above: Performed By: #### L 500.4050, L100.0100 #### [facility] [address] [place], [address] ALK P 93 U/L Normal 45-117 [facility] Comment on above: Performed By: #### L 500.4050, L100.0100 #### [facility] [address] [place], [address] ALT [Catalytic activity/Vol] 35 U/L Normal 13-56 [facility] Comment on above: Performed By: #### L 500.4050, L100.0100 #### [facility] [address] [place], [address] AST [Catalytic activity/Vol] 18 U/L Normal 15-37 [facility] Comment on above: Performed By: #### L 500.4050, L100.0100 #### [facility] [address] [place], [address] Bilirubin [Mass/Vol] 0.50 mg/dL Normal 0.20-1.00 [facility] Comment on above: Result Comment: For patients on eltrombopag therapy, use of Dim[place] TBIL is not recommended. Performed By: #### L 500.4050, L100.0100 #### [facility] [address] [place], [address] BUN/CRE 16.6 RATIO Normal 10-20 [facility] Comment on above: Performed By: #### L 500.4050, L100.0100 #### [facility] [address] [place], [address] CA,Total 10.1 mg/dL Normal 8.5-10.1 [facility] Comment on above: Performed By: #### L 500.4050, L100.0100 #### [facility] [address] [place], [address] Chloride [Moles/Vol] 106 mmol/L Normal 98-107 [facility] Comment on above: Performed By: #### L 500.4050, L100.0100 #### [facility] [address] [place], [address] CO2 [Moles/Vol] 28.0 mmol/L Normal 21.0-32.0 [facility] Comment on above: Performed By: #### L 500.4050, L100.0100 #### [facility] [address] [place], [address] Creatinine [Mass/Vol] 0.72 mg/dL Normal 0.55-1.02 [facility] Comment on above: Result Comment: The validity of the calculated GFR GFRAA in patients over 70 years has not been determined. Clinical correlation is essential. Performed By: #### L 500.4050, L100.0100 #### [facility] [address] [place], [address] EST GFR - AA 102 mL/min Normal >60 [facility] Comment on above: Result Comment: Afri can Palestinian GFR Calc Performed By: #### L 500.4050, L100.0100 #### [facility] [address] [place], [address] GAP 7 Normal 5-15 [facility] Comment on above: Performed By: #### L 500.4050, L100.0100 #### [facility] [address] [place], [address] GFR/1.73 sq M.predicted among non-blacks MDRD (S/P/Bld) [Vol rate/Area] 85 mL/min/{1.73_m2} Normal >60 [facility] Comment on above: Result Comment: Non- GFR Calc Performed By: #### L 500.4050, L100.0100 #### [facility] [address] [place], [address] Globulin (S) [Mass/Vol] 4.0 g/dL Normal 2.2-4.2 [facility] Comment on above: Performed By: #### L 500.4050, L100.0100 #### [facility] [address] [place], [address] Glucose [Mass/Vol] 92 mg/dL Normal 74-106 [facility] Comment on above: Performed By: #### L 500.4050, L100.0100 #### [facility] [address] [place], [address] Potassium [Moles/Vol] 4.2 mmol/L Normal 3.5-5.1 [facility] Comment on above: Performed By: #### L 500.4050, L100.0100 #### [facility] [address] [place], [address] Sodium [Moles/Vol] 141 mmol/L Normal 136-145 [facility] Comment on above: Performed By: #### L 500.4050, L100.0100 #### [facility] [address] [place], [address] T PROT 7.9 g/dL Normal 6.4-8.2 [facility] Comment on above: Performed By: #### L 500.4050, L100.0100 #### [facility] [address] [place], [address] Urea nitrogen [Mass/Vol] 12 mg/dL Normal 7-18 [facility] Comment on above: Performed By: #### L 500.4050, L100.0100 #### [facility] [address] [place], [address] US BREAST LT UNILATERAL COMP LETEon 02-03-2024 US BREAST LT UNILATERAL COMPLETE [address] [address] Patient: ROMA BOSCH Phone#: : 1955 Age: 68 Gender: F Pt. Type: Out Account: [id number] Location: Ordering: [facility] Exam Date: 02/03/2024/9:00 Family Phys: SPEEDY EMILIE Charge Code: [id number] Physician: Hartley Order #: [id number] Dose#: PROCEDURE: ULTRASOUND BREAST LT COMPARISON: [facility], BREAST LT COMPLETE, 11/11/2022, 14:32. INDICATIONS: Follow [...] Chicas MD on 02/03/2024 at 16:10 Normal [facility] 3D MAMM BILAT SCREEN BCCPon 01-26-2024 3D MAMM BILAT SCREEN BCCP [address] [address] Patient: ROMA BOSCH Phone#: : 1955 Age: 68 Gender: F Pt. Type: Out Account: [id number] Location: Ordering: [facility] Exam Date: 01/26/2024/15:01 Family Phys: SPEEDY PHAN Charge Code: [id number] Physician: Hartley Order #: [id number] Dose#: PROCEDURE: BILATERAL SCREENING BREAST TOMOSYNTHESIS MAMMOGRAM WITH CAD COMPARISON: [facility], , 3D BILAT SCREEN [facility], 11/11/2022, 12:59. INDICATIONS: Screening. BREAST COMPOSITION: Almost [...] Pimentel MD on 01/26/2024 at 18:36 Normal [facility] TSHon 12-17-2023 TSH Qn 1.50 m[IU]/L Normal 0.40-4.50 [facility] Comment on above: Performed By: #### 8 99 #### [facility] [address], [address] [place] [id number] Blanker Operator: Amarjit Rasmussen MD Laboratory - Chemistry and C hemistry - challengeon 12-16-2023 TSH Qn 1.50 m[IU]/L Normal 0.40 - 4.50 {mIU/L} [facility]. Absolute lymphocyte countOrd ered By: Yesenia Todd on 10-18-2023 Lymphocytes Auto (Unsp spec) [#/Vol] 2.21 10*3/uL 0.83-4.51 [facility] Automated lymphocyte count a s percentage of total leukocytesOrdered By: Yesenia Todd on 10-18-2023 Lymphocytes/100 WBC Auto (Unsp spec) 34.7 % 19-41 [facility] Basophil percentageOrdered B y: Yesenia Todd on 10-18-2023 Basophils/100 WBC (Bld) 0.5 % 0-1 [facility] Bilirubin [Mass/Vol] 0.80 mg/dL 0.20-1.00 [facility] Comment on above: For patients on eltr ombopag therapy, use of [place] TBIL is not recommended. Chloride [Moles/Vol] 107 mmol/L 98-107 [facility] Eosinophils/100 WBC (Bld) 2.0 % 0-5 [facility] Glucose [Mass/Vol] 81 mg/dL 74-106 [facility] Hemoglobin (Bld) [Mass/Vol] 14.7 g/dL 12.0-15.0 [facility] Monocytes/100 WBC (Bld) 6.6 % 0-10 [facility] Neutrophils (Bld) [#/Vol] 3.5 10*3/uL 2.0-7.7 [facility] Neutrophils/100 WBC (Bld) 55.7 % 47-70 [facility] Potassium [Moles/Vol] 4.1 mmol/L 3.5-5.1 [facility] Protein [Mass/Vol] 8.1 g/dL 6.4-8.2 [facility] Sodium [Moles/Vol] 140 mmol/L 136-145 [facility] WBC (Bld) [#/Vol] 6.4 10*3/uL 4.4-11.0 [facility] Determination of erythrocyte mean corpuscular volume (MCV)Ordered By: Yesenia Todd on 10-18-2023 MCV (RBC) [Entitic vol] 93.5 fL 81-99 [facility] Erythrocyte distribution wid th ratioOrdered By: Yesenia Todd on 10-18-2023 Erythrocyte distribution width (RBC) [Ratio] 15.0 % 11.6-14.6 [facility] Erythrocyte distribution wid th standard deviationOrdered By: Yesenia Todd on 10-18-2023 Erythrocyte distribution width (RBC) [Entitic vol] 50.4 fL 35.1-43.9 [facility] Hematocrit Auto (Bld) [Volum e fraction]Ordered By: Yesenia Todd on 10-18-2023 Hematocrit (Bld) [Volume fraction] 44.5 % 37-47 [facility] Immature granulocytes/100 WB C Auto (Bld)Ordered By: [facility] Perez on 10-18-2023 Immature granulocytes/100 WBC (Bld) 0.500 % 0.0-0.9 [facility] Comment on above: IG% - Immature Granu locytes (promyelocytes, myelocytes and metamyelocytes) > 1% indicates that a LEFT SHIFT is Present. Laboratory - Chemistry and C hemistry - challengeOrdered By: [facility] Perez on 10-18-2023 Albumin/Globulin [Mass ratio] 1.1 {ratio} 0.9-2.4 [facility] ALP [Catalytic activity/Vol] 95 U/L 45-117 [facility] ALT [Catalytic activity/Vol] 30 U/L 13-56 [facility] CO2 [Moles/Vol] 28.0 mmol/L 21.0-32.0 [facility] Globulin (S) [Mass/Vol] 3.9 g/dL 2.2-4.2 [facility] Urea nitrogen/Creatinine [Mass ratio] 18.8 mg/mg 10-20 [facility] Laboratory - Hematology and Cell countsOrdered By: Yesenia Todd on 10-18-2023 MCH (RBC) [Entitic mass] 30.9 pg 27.0-32.0 [facility] MCHC (RBC) [Mass/Vol] 33.0 g/dL 32-36 [facility] Nucleated RBC/100 WBC (Bld) [Ratio] 0 % 0-5 [facility] Platelet mean volume (Bld) [Entitic vol] 10.4 fL 6.2-12.0 [facility] Platelets (Bld) [#/Vol] 273 10*3/uL 150-450 [facility] No Panel InformationOrdered By: Yesenia Todd on 10-18-2023 Estimated GFR (MDRD) Amer 86 mL/min >60 [facility] Comment on above: GFR Calc Estimated GFR (MDRD) Non-Af Amer 71 mL/min >60 [facility] Comment on above: Non- GFR Calc RBC Auto (Bld) [#/Vol]Ordere d By: Yesenia Todd on 10-18-2023 RBC (Bld) [#/Vol] 4.76 10*6/uL 4.2-5.4 [facility] Serum or plasma calcium saman urement (mass/volume)Ordered By: Yesenia Todd on 10-18-2023 Calcium [Mass/Vol] 10.0 mg/dL 8.5-10.1 [facility] Serum or plasma creatinine m easurement (mass/volume)Ordered By: Yesenia Todd on 10-18-2023 Creatinine [Mass/Vol] 0.85 mg/dL 0.55-1.02 [facility] Comment on above: The validity of the calculated GFR & GFRAA in patients over 70 years has not been determined. Clinical correlation is essential. Serum or plasma urea nitroge n measurement (mass/volume)Ordered By: Yesenia Todd on 10-18-2023 Urea nitrogen [Mass/Vol] 16 mg/dL 7-18 [facility] Thin prep Papanicolaou smear with manual screeningOrdered By: Yesenia Todd on 10-18-2023 Thin prep Papanicolaou smear with manual screening 4.2 g/dL 3.2-5.0 [facility] Thin prep Papanicolaou smear with manual screening 20 U/L 15-37 [facility] Thin prep Papanicolaou smear with manual screening 5 5-15 [facility] Absolute lymphocyte countOrd ered By: Yesenia Todd on 08-23-2023 Lymphocytes Auto (Unsp spec) [#/Vol] 2.03 10*3/uL 0.83-4.51 [facility] Automated lymphocyte count a s percentage of total leukocytesOrdered By: Yesenia Todd on 08-23-2023 Lymphocytes/100 WBC Auto (Unsp spec) 31.3 % 19-41 [facility] Basophil percentageOrdered B y: Yesenia Todd on 08-23-2023 Basophils/100 WBC (Bld) 0.3 % 0-1 [facility] Bilirubin [Mass/Vol] 0.50 mg/dL 0.20-1.00 [facility] Comment on above: For patients on eltr ombopag therapy, use of [place] TBIL is not recommended. Chloride [Moles/Vol] 111 mmol/L 98-107 [facility] Eosinophils/100 WBC (Bld) 1.2 % 0-5 [facility] Glucose [Mass/Vol] 109 mg/dL 74-106 [facility] Comment on above: Fasting Glucose resu lt from 100 to 125 mg/dL suggests IMPAIRED HOMEOSTASIS per A.D.A. criteria. Hemoglobin (Bld) [Mass/Vol] 13.8 g/dL 12.0-15.0 [facility] Monocytes/100 WBC (Bld) 6.9 % 0-10 [facility] Neutrophils (Bld) [#/Vol] 3.9 10*3/uL 2.0-7.7 [facility] Neutrophils/100 WBC (Bld) 59.8 % 47-70 [facility] Potassium [Moles/Vol] 3.9 mmol/L 3.5-5.1 [facility] Protein [Mass/Vol] 7.8 g/dL 6.4-8.2 [facility] Sodium [Moles/Vol] 140 mmol/L 136-145 [facility] WBC (Bld) [#/Vol] 6.5 10*3/uL 4.4-11.0 [facility] Determination of erythrocyte mean corpuscular volume (MCV)Ordered By: Yesenia Todd on 08-23-2023 MCV (RBC) [Entitic vol] 91.0 fL 81-99 [facility] Erythrocyte distribution wid th ratioOrdered By: Yesenia Todd on 08-23-2023 Erythrocyte distribution width (RBC) [Ratio] 14.6 % 11.6-14.6 [facility] Erythrocyte distribution wid th standard deviationOrdered By: Yesenia Todd on 08-23-2023 Erythrocyte distribution width (RBC) [Entitic vol] 47.4 fL 35.1-43.9 [facility] Hematocrit Auto (Bld) [Volum e fraction]Ordered By: Yesenia Todd on 08-23-2023 Hematocrit (Bld) [Volume fraction] 42.3 % 37-47 [facility] Immature granulocytes/100 WB C Auto (Bld)Ordered By: Yeseniacintia Todd on 08-23-2023 Immature granulocytes/100 WBC (Bld) 0.500 % 0.0-0.9 [facility] Comment on above: IG% - Immature Granu locytes (promyelocytes, myelocytes and metamyelocytes) > 1% indicates that a LEFT SHIFT is Present. Laboratory - Chemistry and C hemistry - challengeOrdered By: Yeseniacintia Todd on 08-23-2023 Albumin/Globulin [Mass ratio] 1.1 {ratio} 0.9-2.4 [facility] ALP [Catalytic activity/Vol] 94 U/L 45-117 [facility] ALT [Catalytic activity/Vol] 32 U/L 13-56 [facility] CO2 [Moles/Vol] 25.0 mmol/L 21.0-32.0 [facility] Globulin (S) [Mass/Vol] 3.8 g/dL 2.2-4.2 [facility] Urea nitrogen/Creatinine [Mass ratio] 18.8 mg/mg 10-20 [facility] Laboratory - Hematology and Cell countsOrdered By: Yeseniacintia Todd on 08-23-2023 MCH (RBC) [Entitic mass] 29.7 pg 27.0-32.0 [facility] MCHC (RBC) [Mass/Vol] 32.6 g/dL 32-36 [facility] Nucleated RBC/100 WBC (Bld) [Ratio] 0 % 0-5 [facility] Platelet mean volume (Bld) [Entitic vol] 10.9 fL 6.2-12.0 [facility] Platelets (Bld) [#/Vol] 263 10*3/uL 150-450 [facility] No Panel InformationOrdered By: Yesenia Todd on 08-23-2023 Estimated GFR (MDRD) Amer 109 mL/min >60 [facility] Comment on above: GFR Calc Estimated GFR (MDRD) Non-Af Amer 90 mL/min >60 [facility] Comment on above: Non- GFR Calc RBC Auto (Bld) [#/Vol]Ordere d By: Yesenia Todd on 08-23-2023 RBC (Bld) [#/Vol] 4.65 10*6/uL 4.2-5.4 [facility] Serum or plasma calcium saman urement (mass/volume)Ordered By: Yesenia Todd on 08-23-2023 Calcium [Mass/Vol] 9.7 mg/dL 8.5-10.1 [facility] Serum or plasma creatinine m easurement (mass/volume)Ordered By: Yesenia Todd on 08-23-2023 Creatinine [Mass/Vol] 0.69 mg/dL 0.55-1.02 [facility] Comment on above: The validity of the calculated GFR & GFRAA in patients over 70 years has not been determined. Clinical correlation is essential. Serum or plasma urea nitroge n measurement (mass/volume)Ordered By: Yesenia Todd on 08-23-2023 Urea nitrogen [Mass/Vol] 13 mg/dL 7-18 [facility] Thin prep Papanicolaou smear with manual screeningOrdered By: Yesenia Todd on 08-23-2023 Thin prep Papanicolaou smear with manual screening 4.0 g/dL 3.2-5.0 [facility] Thin prep Papanicolaou smear with manual screening 20 U/L 15-37 [facility] Thin prep Papanicolaou smear with manual screening 4 5-15 [facility] TSHon 08-20-2023 TSH Qn 0.07 m[IU]/L Low 0.40-4.50 [facility] Comment on above: Performed By: #### 8 99 #### [facility] [facility] [address], [address] [place] [address] Blanker Operator: Amarjit Rasmussen MD Laboratory - Chemistry and C hemistry - challengeon 08-19-2023 TSH Qn 0.07 m[IU]/L Abnormal 0.40 - 4.50 {mIU/L} [facility]. Absolute lymphocyte countOrd ered By: Yesenia Todd on 06-07-2023 Lymphocytes Auto (Unsp spec) [#/Vol] 2.63 10*3/uL 0.83-4.51 [facility] Basophil percentageOrdered B y: Yesenia Todd on 06-07-2023 Basophils/100 WBC (Bld) 0.2 % 0-1 [facility] Bilirubin [Mass/Vol] 0.50 mg/dL 0.20-1.00 [facility] Comment on above: For patients on eltr ombopag therapy, use of [place] TBIL is not recommended. Chloride [Moles/Vol] 109 mmol/L 98-107 [facility] Eosinophils/100 WBC (Bld) 1.5 % 0-5 [facility] Glucose [Mass/Vol] 94 mg/dL 74-106 [facility] Neutrophils (Bld) [#/Vol] 2.9 10*3/uL 2.0-7.7 [facility] Neutrophils/100 WBC (Bld) 47.4 % 47-70 [facility] Potassium [Moles/Vol] 4.3 mmol/L 3.5-5.1 [facility] Protein [Mass/Vol] 7.8 g/dL 6.4-8.2 [facility] Sodium [Moles/Vol] 141 mmol/L 136-145 [facility] WBC (Bld) [#/Vol] 6.2 10*3/uL 4.4-11.0 [facility] Blood erythrocytes count (nu mber/volume)Ordered By: Yesenia Todd on 06-07-2023 RBC (Bld) [#/Vol] 5.14 10*6/uL 4.2-5.4 [facility] Blood hemoglobin measurement (mass/volume)Ordered By: Yesenia Todd on 06-07-2023 Hemoglobin (Bld) [Mass/Vol] 14.6 g/dL 12.0-15.0 [facility] Blood lymphocytes/100 leukoc ytesOrdered By: Yesenia Todd on 06-07-2023 Lymphocytes/100 WBC (Bld) 42.8 % 19-41 [facility] Blood monocytes/100 leukocyt esOrdered By: Yesenia Todd on 06-07-2023 Monocytes/100 WBC (Bld) 7.8 % 0-10 [facility] Blood platelet mean volumeOr dered By: Yesenia Todd on 06-07-2023 Platelet mean volume (Bld) [Entitic vol] 11.5 fL 6.2-12.0 [facility] Determination of erythrocyte mean corpuscular volume (MCV)Ordered By: Yesenia Todd on 06-07-2023 MCV (RBC) [Entitic vol] 88.9 fL 81-99 [facility] Hematocrit Auto (Bld) [Volum e fraction]Ordered By: Yesenia Todd on 06-07-2023 Hematocrit (Bld) [Volume fraction] 45.7 % 37-47 [facility] Laboratory - Chemistry and C hemistry - challengeOrdered By: Yesenia Todd on 06-07-2023 ALP [Catalytic activity/Vol] 86 U/L 45-117 [facility] ALT [Catalytic activity/Vol] 28 U/L 13-56 [facility] CO2 [Moles/Vol] 27.0 mmol/L 21.0-32.0 [facility] Globulin (S) [Mass/Vol] 3.9 g/dL 2.2-4.2 [facility] Urea nitrogen/Creatinine [Mass ratio] 20.0 mg/mg 10-20 [facility] Laboratory - Hematology and Cell countsOrdered By: Yeseniacintia Todd on 06-07-2023 Erythrocyte distribution width (RBC) [Entitic vol] 44.9 fL 35.1-43.9 [facility] Erythrocyte distribution width (RBC) [Ratio] 13.8 % 11.6-14.6 [facility] Immature granulocytes/100 WBC (Bld) 0.300 % 0.0-0.9 [facility] Comment on above: IG% - Immature Granu locytes (promyelocytes, myelocytes and metamyelocytes) > 1% indicates that a LEFT SHIFT is Present. MCH (RBC) [Entitic mass] 28.4 pg 27.0-32.0 [facility] Nucleated RBC/100 WBC (Bld) [Ratio] 0 % 0-5 [facility] MCHC Auto (RBC) [Mass/Vol]Or dered By: Yesenia Todd on 06-07-2023 MCHC (RBC) [Mass/Vol] 31.9 g/dL 32-36 [facility] No Panel InformationOrdered By: Yesenia Todd on 06-07-2023 Estimated GFR (MDRD) Amer 107 mL/min >60 [facility] Comment on above: GFR Calc Estimated GFR (MDRD) Non-Af Amer 89 mL/min >60 [facility] Comment on above: Non- GFR Calc Platelets bldOrdered By: Yelena Todd on 06-07-2023 Platelets (Bld) [#/Vol] 273 10*3/uL 150-450 [facility] Serum or plasma albumin saman urement (mass/volume)Ordered By: Yesenia Todd on 06-07-2023 Albumin [Mass/Vol] 3.9 g/dL 3.2-5.0 [facility] Serum or plasma albumin/glob ulin mass ratioOrdered By: Yesenia Todd on 06-07-2023 Albumin/Globulin [Mass ratio] 1.0 {ratio} 0.9-2.4 [facility] Serum or plasma calcium saman urement (mass/volume)Ordered By: Yesenia Todd on 06-07-2023 Calcium [Mass/Vol] 10.1 mg/dL 8.5-10.1 [facility] Serum or plasma creatinine m easurement (mass/volume)Ordered By: Yesenia Todd on 06-07-2023 Creatinine [Mass/Vol] 0.70 mg/dL 0.55-1.02 [facility] Comment on above: The validity of the calculated GFR & GFRAA in patients over 70 years has not been determined. Clinical correlation is essential. Serum or plasma urea nitroge n measurement (mass/volume)Ordered By: Yesenia Todd on 06-07-2023 Urea nitrogen [Mass/Vol] 14 mg/dL 7-18 [facility] Thin prep Papanicolaou smear with manual screeningOrdered By: Yesenia Todd on 06-07-2023 Thin prep Papanicolaou smear with manual screening 14 U/L 15-37 [facility] Thin prep Papanicolaou smear with manual screening 5 5-15 [facility] TSHon 05-22-2023 TSH Qn 0.04 m[IU]/L Low 0.40-4.50 [facility] Comment on above: Performed By: #### 8 99 #### [facility] [address], [address] [place] [address] Blanker Operator: Amarjit Rasmussen MD Laboratory - Chemistry and C hemistry - challengeon 05-21-2023 TSH Qn 0.04 m[IU]/L Abnormal 0.40 - 4.50 {mIU/L} [facility], [facility].; [facility]. Absolute lymphocyte countOrd ered By: Yesenia Todd on 03-29-2023 Lymphocytes Auto (Unsp spec) [#/Vol] 2.21 10*3/uL 0.83-4.51 [facility] Basophil percentageOrdered B y: Yesenia Todd on 03-29-2023 Basophils/100 WBC (Bld) 0.4 % 0-1 [facility] Bilirubin [Mass/Vol] 0.60 mg/dL 0.20-1.00 [facility] Comment on above: For patients on eltr ombopag therapy, use of [place] TBIL is not recommended. Chloride [Moles/Vol] 109 mmol/L 98-107 [facility] Eosinophils/100 WBC (Bld) 1.1 % 0-5 [facility] Glucose [Mass/Vol] 102 mg/dL 74-106 [facility] Comment on above: Fasting Glucose resu lt from 100 to 125 mg/dL suggests IMPAIRED HOMEOSTASIS per A.D.A. criteria. Neutrophils (Bld) [#/Vol] 2.8 10*3/uL 2.0-7.7 [facility] Neutrophils/100 WBC (Bld) 49.9 % 47-70 [facility] Potassium [Moles/Vol] 4.0 mmol/L 3.5-5.1 [facility] Protein [Mass/Vol] 8.0 g/dL 6.4-8.2 [facility] Sodium [Moles/Vol] 140 mmol/L 136-145 [facility] WBC (Bld) [#/Vol] 5.7 10*3/uL 4.4-11.0 [facility] Bilirubin Test strip Ql (U)O rdered By: Yesenia Todd on 03-29-2023 Bilirubin Ql (U) Negative Negative [facility] Blood erythrocytes count (nu mber/volume)Ordered By: Yesenia Todd on 03-29-2023 RBC (Bld) [#/Vol] 4.89 10*6/uL 4.2-5.4 [facility] Blood hemoglobin measurement (mass/volume)Ordered By: Yesenia Todd on 03-29-2023 Hemoglobin (Bld) [Mass/Vol] 14.0 g/dL 12.0-15.0 [facility] Blood lymphocytes/100 leukoc ytesOrdered By: Yesenia Todd on 03-29-2023 Lymphocytes/100 WBC (Bld) 39.0 % 19-41 [facility] Blood monocytes/100 leukocyt esOrdered By: Yesenia Todd on 03-29-2023 Monocytes/100 WBC (Bld) 9.2 % 0-10 [facility] Blood platelet mean volumeOr dered By: Yesenia Todd on 03-29-2023 Platelet mean volume (Bld) [Entitic vol] 11.2 fL 6.2-12.0 [facility] Determination of erythrocyte mean corpuscular volume (MCV)Ordered By: Yesenia Todd on 03-29-2023 MCV (RBC) [Entitic vol] 88.8 fL 81-99 [facility] Hematocrit Auto (Bld) [Volum e fraction]Ordered By: Yesenia Todd on 03-29-2023 Hematocrit (Bld) [Volume fraction] 43.4 % 37-47 [facility] Ketones Test strip Ql (U)Ord ered By: Yesenia Todd on 03-29-2023 Ketones Ql (U) Negative Negative [facility] Laboratory - Chemistry and C hemistry - challengeOrdered By: Yesenia Todd on 03-29-2023 ALP [Catalytic activity/Vol] 80 U/L 45-117 [facility] ALT [Catalytic activity/Vol] 55 U/L 13-56 [facility] CO2 [Moles/Vol] 27.0 mmol/L 21.0-32.0 [facility] Globulin (S) [Mass/Vol] 4.1 g/dL 2.2-4.2 [facility] Urea nitrogen/Creatinine [Mass ratio] 20.4 mg/mg 10-20 [facility] Laboratory - Hematology and Cell countsOrdered By: Yesenia Todd on 03-29-2023 Erythrocyte distribution width (RBC) [Entitic vol] 43.6 fL 35.1-43.9 [facility] Erythrocyte distribution width (RBC) [Ratio] 13.4 % 11.6-14.6 [facility] Immature granulocytes/100 WBC (Bld) 0.400 % 0.0-0.9 [facility] Comment on above: IG% - Immature Granu locytes (promyelocytes, myelocytes and metamyelocytes) > 1% indicates that a LEFT SHIFT is Present. MCH (RBC) [Entitic mass] 28.6 pg 27.0-32.0 [facility] Nucleated RBC/100 WBC (Bld) [Ratio] 0 % 0-5 [facility] MCHC Auto (RBC) [Mass/Vol]Or dered By: Yesenia Todd on 03-29-2023 MCHC (RBC) [Mass/Vol] 32.3 g/dL 32-36 [facility] Nitrite Test strip Ql (U)Ord ered By: Yesenia Todd on 03-29-2023 Nitrite Ql (U) Negative Negative [facility] No Panel InformationOrdered By: Yesenia Todd on 03-29-2023 Estimated GFR (MDRD) Amer 109 mL/min >60 [facility] Comment on above: GFR Calc Estimated GFR (MDRD) Non-Af Amer 90 mL/min >60 [facility] Comment on above: Non- GFR Calc Hepatitis B Surface Antigen Non-Reactive Nonreactive [facility] Hepatitis C Antibody Non-Reactive Nonreactive [facility] Comment on above: Non Reactive: < 0.8 Equivocal: >/= 0.8 to < 1.0 Reactive: >/= 1.0The CDC recommends that a reactive/equivocal HCV antibody result be followed up by the HCV Nucleic Acid Amplificationtest (642155) Miscellaneous Test Comment MAILED SPECIMEN [facility] Platelets bldOrdered By: Yelena Todd on 03-29-2023 Platelets (Bld) [#/Vol] 263 10*3/uL 150-450 [facility] Protein Test strip Ql (U)Ord ered By: Yesenia Todd on 03-29-2023 Protein Ql (U) Negative Negative [facility] Serum hepatitis B virus surf caroline antibody IgG detectionOrdered By: Yesenia Todd on 03-29-2023 HBV surface IgG Ql (S) Non-Reactive [facility] Comment on above: Non Reactive: Incons istent with immunity less than <10 mIU/mL Reactive: Consistent with immunity greater than or equal to 10 mIU/mL Serum or plasma albumin saman urement (mass/volume)Ordered By: Yesenia Todd on 03-29-2023 Albumin [Mass/Vol] 3.9 g/dL 3.2-5.0 [facility] Serum or plasma albumin/glob ulin mass ratioOrdered By: Yesenia Todd on 03-29-2023 Albumin/Globulin [Mass ratio] 1.0 {ratio} 0.9-2.4 [facility] Serum or plasma calcium saman urement (mass/volume)Ordered By: Yesenia Todd on 03-29-2023 Calcium [Mass/Vol] 9.8 mg/dL 8.5-10.1 [facility] Serum or plasma creatinine m easurement (mass/volume)Ordered By: Yesenia Todd on 03-29-2023 Creatinine [Mass/Vol] 0.69 mg/dL 0.55-1.02 [facility] Comment on above: The validity of the calculated GFR & GFRAA in patients over 70 years has not been determined. Clinical correlation is essential. Serum or plasma urea nitroge n measurement (mass/volume)Ordered By: Yesenia Todd on 03-29-2023 Urea nitrogen [Mass/Vol] 14 mg/dL 7-18 [facility] Thin prep Papanicolaou smear with manual screeningOrdered By: Yesenia Todd on 03-29-2023 Thin prep Papanicolaou smear with manual screening 25 U/L 15-37 [facility] Thin prep Papanicolaou smear with manual screening 4 11-16 [facility] Urine blood detectionOrdered By: Yesenia Todd on 03-29-2023 RBC Ql (U) Negative Negative [facility] Urine clarityOrdered By: Yelena Todd on 03-29-2023 Clarity (U) Clear Clear [facility] Urine color determinationOrd ered By: Yesenia Todd on 03-29-2023 Color (U) Yellow Yellow [facility] Urine creatinine measurement (mass/volume)Ordered By: Yesenia Todd on 03-29-2023 Creatinine (U) [Mass/Vol] 43.40 mg/dL NO RANGE EST. [facility] Urine glucose detectionOrder ed By: Yesenia Todd on 03-29-2023 Glucose Ql (U) Normal mg/dl Normal [facility] Urine leukocyte esterase det ection by dipstickOrdered By: Yesenia Todd on 03-29-2023 Leukocyte esterase Test strip Ql (U) Negative Negative [facility] Urine pHOrdered By: Yesenia grewal on 03-29-2023 pH (U) 7.0 [pH] 5.0 - 8.0 [facility] Urine protein measurement (m ass/volume)Ordered By: Yesenia Todd on 03-29-2023 Protein (U) [Mass/Vol] 6.0 mg/dL 0.0-11.8 [facility] Urine protein/creatinine mas s ratioOrdered By: Yesenia Todd on 03-29-2023 Protein/Creatinine (U) [Mass ratio] 138 mg/g CRE 0-200 [facility] Urine specific gravity measu rementOrdered By: Yesenia Todd on 03-29-2023 Specific gravity (U) [Rel density] 1.010 1.002-1.030 [facility] Urobilinogen Auto test strip Ql (U)Ordered By: Yesenia Todd on 03-29-2023 Urobilinogen Ql (U) Normal mg/dl Normal [facility] T3, FREEon 02-16-2023 Free T3 [Mass/Vol] 3.0 pg/mL Normal 2.3-4.2 [facility] Comment on above: Performed By: #### 5 081, [id number], 866 #### [facility] [address], [address] [place] [address] Blanker Operator: Amarjit Rasmussen MD T4, FREEon 02-16-2023 Free T4 [Mass/Vol] 0.6 ng/dL Low 0.8-1.8 [facility] Comment on above: Performed By: #### 5 081, [id number], 866 #### [facility] [address], [address] [place] [address] Blanker Operator: Amarjit Rasmussen MD THYROID PEROXIDASE ANTIBODIE Son 02-16-2023 THYROID PEROXIDASE ANTIBODIES 94 IU/mL High <9 [facility] Comment on above: Performed By: #### 5 081, [id number], 866 #### [facility] [address], [address] [place] [address] Blanker Operator: Amarjit Rasmussen MD Laboratory - Chemistry and C hemistry - challengeon 02-15-2023 Free T3 [Mass/Vol] 3.0 pg/mL Normal 2.3 - 4.2 pg/mL [facility], [facility].; [facility]. Free T4 [Mass/Vol] 0.6 ng/dL Abnormal 0.8 - 1.8 ng/dL [facility], [facility].; [facility] No Panel Informationon 02-15 THYROID PEROXIDASE ANTIBODIES 94 {IU/mL} Abnormal [facility], [facility].; [facility], [facility]. GILBERTO SCREEN, IFA, W/REFL TITE R AND [...] indicated. For additional information, please refer to http://education.[employer]/faq/OJZ799 (This link is being provided for informational/ educational purposes only.) Performed By: #### 1 0231, 899, %[id number], 249, 6646, 4420 #### [facility] [address], [address] [place] [address] Blanker Operator: Amarjit Rasmussen MD ANTINUCLEAR ANTIBODIES TITER AND [...] AC-23: Cytoplasmic International Consensus on GILBERTO Patterns (https://doi.org/10.1515/ysid-2854-2086) Performed By: #### 8 99 #### [facility] [address], [address] [place] [address] Blanker Operator: Amarjit Rasmussen MD GILBERTO PATTERN Nuclear, Homogeneous Abnormal [facility] Comment on above: Result Comment: Homo geneous pattern is associated with systemic lupus erythematosus (SLE), drug-induced lupus and juvenile idiopathic arthritis. AC-1: Homogeneous International Consensus on GILBERTO Patterns (https://doi.org/10.1515/bxit-1247-6869) Performed By: #### 8 99 #### [facility] [address], [address] [place] [address] Blanker Operator: Amarjit Rasmussen MD GILBERTO TITER 1:80 High [facility] Comment on above: Result Comment: A lo w level GILBERTO titer may be present in pre-clinical autoimmune diseases and normal individuals. Reference Range <1:40 Negative 1:40-1:80 Low Antibody Level >1:80 Elevated Antibody Level Performed By: #### 8 99 #### [facility] [address], [address] [place] [address] Blanker Operator: Amarjit Rasmussen MD B TYPE NATRIURETIC PEPTIDE ( BNP)on 02-08-2023 Natriuretic peptide B (Bld) [Mass/Vol] 16 pg/mL Normal <100 [facility] Comment on above: Result Comment: BNP levels increase with age in the general population with the highest values seen in individuals greater than 75 years of age. Reference: J. Am. Janki. Cardiol. 2002; 40:976-982. Performed By: #### 3 [id number] #### [facility] [place] [address] Blanker Operator: Amarjit Rasmussen MD C-REACTIVE PROTEINon 023 CRP [Mass/Vol] 2.1 mg/L Normal <8.0 [facility] Comment on above: Performed By: #### 8 99 #### [facility] [place] [address] Blanker Operator: Amarjit Rasmussen MD COMPREHENSIVE METABOLIC [facility] 02-08-2023 Albumin [Mass/Vol] 4.8 g/dL Normal 3.6-5.1 [facility] Comment on above: Performed By: #### 1 0231, 899, %[id number], 249, 6646, 4420 #### [facility] [place] [address] Blanker Operator: Amarjit Rasmussen MD Albumin/Globulin [Mass ratio] 1.5 {ratio} Normal 1.0-2.5 [facility] Comment on above: Performed By: #### 1 0231, 899, %[id number], 249, 6646, 4420 #### [facility] [place] [address] Blanker Operator: Amarjit Rasmussen MD ALP [Catalytic activity/Vol] 83 U/L Normal 37-153 [facility] Comment on above: Performed By: #### 1 0231, 899, %[id number], 249, 6646, 4420 #### [facility] [place] [address] Blanker Operator: Amarjit Rasmussen MD ALT [Catalytic activity/Vol] 30 U/L High 6-29 [facility] Comment on above: Performed By: #### 1 0231, 899, %[id number], 249, 6646, 4420 #### [facility] [place] [address] Blanker Operator: Amarjit Rasmussen MD AST [Catalytic activity/Vol] 23 U/L Normal 10-35 [facility] Comment on above: Performed By: #### 1 0231, 899, %83155, 249, 6646, 4420 #### [facility] [place] [address] Blanker Operator: Amarjit Rasmussen MD Bilirubin [Mass/Vol] 0.5 mg/dL Normal 0.2-1.2 [facility] Comment on above: Performed By: #### 1 0231, 899, %04021, 249, 6646, 4420 #### [facility] [place] [address] Blanker Operator: Amarjit Rasmussen MD BUN/CREATININE RATIO SEE NOTE: Normal 6-22 [facility] Comment on above: Result Comment: Not Reported: BUN and Creatinine are within reference range. Performed By: #### 1 0231, 899, %[id number], 249, 6646, 4420 #### [facility] [place] [address] Blanker Operator: Amarjit Rasmussen MD Calcium [Mass/Vol] 10.0 mg/dL Normal 8.6-10.4 [facility] Comment on above: Performed By: #### 1 0231, 899, %70129, 249, 6646, 4420 #### [facility] [place] [address] Blanker Operator: Amarjit Rasmussen MD Chloride [Moles/Vol] 106 mmol/L Normal 98-110 [facility] Comment on above: Performed By: #### 1 0231, 899, %53256, 249, 6646, 4420 #### [facility] [place] [address] Blanker Operator: Amarjit Rasmussen MD CO2 [Moles/Vol] 23 mmol/L Normal 20-32 [facility] Comment on above: Performed By: #### 1 0231, 899, %98723, 249, 6646, 4420 #### [facility] of [address], [address] [place] [address] Blanker Operator: Amarjit Rasmussen MD Creatinine [Mass/Vol] 0.77 mg/dL Normal 0.50-1.[address] [facility] Comment on above: Performed By: #### 1 0231, 899, %61003, 249, 6646, 4420 #### [facility] [place] [address] Blanker Operator: Amarjit Rasmussen MD GFR/1.73 sq M.predicted among non-blacks MDRD (S/P/Bld) [Vol rate/Area] 84 mL/min/{1.73_m2} Normal > OR = 60 [facility] Comment on above: Performed By: #### 1 0231, 899, %89159, 249, 6646, 4420 #### [facility] [place] [address] Blanker Operator: Amarjit Rasmussen MD Globulin (S) [Mass/Vol] 3.1 g/dL Normal 1.9-3.7 [facility] Comment on above: Performed By: #### 1 023, 899, %90270, 249, 6646, 4420 #### [facility] [place] [address] Blanker Operator: Amarjit Rasmussen MD Glucose [Mass/Vol] 96 mg/dL Normal 65-99 [facility] Comment on above: Result Comment: Fasting reference interval Performed By: #### 1 0231, 899, %51731, 249, 6646, 4420 #### [facility] [place] [address] Blanker Operator: Amarjit Rasmussen MD Potassium [Moles/Vol] 4.0 mmol/L Normal 3.5-5.[address] [facility] Comment on above: Performed By: #### 1 0231, 899, %74491, 249, 6646, 4420 #### [facility] [place] [address] Blanker Operator: Amarjit Rasmussen MD Protein [Mass/Vol] 7.9 g/dL Normal 6.1-8.1 [facility] Comment on above: Performed By: #### 1 0231, 899, %63520, 249, 6646, 4420 #### [facility] [address], [address] [place] [address] Blanker Operator: Amarjit Rasmussen MD Sodium [Moles/Vol] 141 mmol/L Normal 135-146 [facility] Comment on above: Performed By: #### 1 0231, 899, %[id number], 249, 6646, 4420 #### [facility] [address], [address] [place] [address] Blanker Operator: Amarjit Rasmussen MD Urea nitrogen [Mass/Vol] 15 mg/dL Normal 7-25 [facility] Comment on above: Performed By: #### 1 0231, 899, %67256, 249, 6646, 4420 #### [facility] [address], [address] [place] [address] Blanker Operator: Amarjit Rasmussen MD LYME DISEASE AB W/REFL [...] apparent. Performed By: #### 1 0231, 899, %87557, 249, 6646, 4420 #### [facility] [address], [address] [place] [address] Blanker Operator: Amarjit Rasmussen MD RHEUMATOID FACTORon 02-09-20 23 RHEUMATOID FACTOR <14 Normal <14 [facility] Comment on above: Performed By: #### 8 99 #### [facility] [address], [address] [place] [address] Blanker Operator: Amarjit Rasmussen MD TSHon 02-08-2023 TSH Qn 20.32 m[IU]/L High 0.40-4.50 [facility] Comment on above: Performed By: #### 8 99 #### [facility] [address], [address] [place] [address] Blanker Operator: Amarjit Rasmussen MD SED RATE BY MODIFIED WESTERG RENon 02-06-2023 SED RATE BY MODIFIED WESTERGREN 9 mm/h Normal < OR = 30 [facility] Comment on above: Performed By: #### 8 99 #### [facility] [address], [address] [place] [address] Blanker Operator: Amarjit Rasmussen MD Laboratory - Chemistry and C hemistry - challengeon 2023 Albumin [Mass/Vol] 4.8 g/dL Normal 3.6 - 5.1 g/dL [facility], [facility] [employer], [facility]. Albumin/Globulin [Mass ratio] 1.5 {ratio} Normal 1.0 - 2.[address] [facility], [facility].; [employer] ALP [Catalytic activity/Vol] 83 U/L Normal 37 - 153 U/L [facility], [facility].; [employer] ALT [Catalytic activity/Vol] 30 U/L Abnormal 6 - 29 U/L [employer] [facility], [facility].; [employer] AST [Catalytic activity/Vol] 23 U/L Normal 10 - 35 U/L [employer] [facility], [facility].; [employer] Bilirubin [Mass/Vol] 0.5 mg/dL Normal 0.2 - 1 .2 mg/dL [employer] [facility], [facility].; [employer] Calcium [Mass/Vol] 10.0 mg/dL Normal 8.6 - 10. 4 mg/dL [employer] [facility], [facility].; [employer], [facility]. Chloride [Moles/Vol] 106 mmol/L Normal 98 - 11 0 mmol/L [facility].; [facility], [facility]. CO2 [Moles/Vol] 23 mmol/L Normal 20 - 32 mmol/L [facility], [facility]. Creatinine [Mass/Vol] 0.77 mg/dL Normal 0.50 - 1.05 mg/dL [facility], [facility].; [facility], [facility] CRP [Mass/Vol] 2.1 mg/L Normal [facility], [facility].; [facility], [facility]. GFR/1.73 sq M.predicted among non-blacks MDRD (S/P/Bld) [Vol rate/Area] 84 mL/min/{1.73_m2} Normal [facility], [facility]; [facility], [facility] Glucose [Mass/Vol] 96 mg/dL Normal 65 - 99 mg/dL [facility].; [facility], [facility] Natriuretic peptide B (Bld) [Mass/Vol] 16 pg/mL Normal [facility].; [facility], [facility]. Potassium [Moles/Vol] 4.0 mmol/L Normal 3.5 - 5.3 mmol/L [facility].; [facility], [facility]. Protein [Mass/Vol] 7.9 g/dL Normal 6.1 - 8.1 g/dL [facility], [facility].; [facility], [facility]. Sodium [Moles/Vol] 141 mmol/L Normal 135 - 146 mmol/L [facility].; [facility], [facility]. TSH Qn 20.32 m[IU]/L Abnormal 0.40 - 4.50 {mIU/L} [facility].; [facility], [facility]. Urea nitrogen [Mass/Vol] 15 mg/dL Normal 7 - 25 mg/dL [facility].; [facility], [facility] No Panel Informationon 02-05 GILBERTO PATTERN Cytoplasmic Abnormal [facility]; [employer], [facility] Work Phone: GILBERTO PATTERN Nuclear, Homogeneous Abnormal [facility] [employer] [facility].; [facility] Work Phone: GILBERTO SCREEN, IFA Positive Abnormal [facility]; [facility] GILBERTO TITER 1:80 Abnormal [facility]; [facility] Work Phone: BUN/CREATININE RATIO SEE NOTE: Normal 6 - 22 [facility]; [facility] GLOBULIN 3.1 Normal 1.9 - 3.7 [facility]; [facility] LYME AB SCREEN <0.90 Normal [facility]; [facility] RHEUMATOID FACTOR <14 Normal [facility]; [facility] SED RATE BY MODIFIED WESTERGREN 9 mm/h Normal [facility]; [facility] Laboratory - Chemistry and C hemistry - challengeon 04-23-2022 Albumin [Mass/Vol] 5.0 g/dL Normal 3.6 - 5.1 g/dL [facility]; [facility] Albumin/Globulin [Mass ratio] 1.6 {ratio} Normal 1.0 - 2.5 [facility]; [facility] ALP [Catalytic activity/Vol] 78 U/L Normal 37 - 153 U/L [facility]; [facility] ALT [Catalytic activity/Vol] 23 U/L Normal 6 - 29 U/L [facility]; [facility] AST [Catalytic activity/Vol] 20 U/L Normal 10 - 35 U/L [facility]; [facility] Bilirubin [Mass/Vol] 0.8 mg/dL Normal 0.2 - 1 .2 mg/dL [facility]; [facility] Calcium [Mass/Vol] 10.4 mg/dL Normal 8.6 - 10. 4 mg/dL [facility]; [employer] [facility] Chloride [Moles/Vol] 105 mmol/L Normal 98 - 11 0 mmol/L [facility]; [facility] Cholesterol [Mass/Vol] 280 mg/dL Abnormal [facility], [facility].; [facility], [facility] Cholesterol in HDL [Mass/Vol] 45 mg/dL Abnormal [facility].; [facility], [facility]. Cholesterol in LDL [Mass/Vol] 188 mg/dL Abnormal [facility], [facility].; [employer] [facility] CO2 [Moles/Vol] 27 mmol/L Normal 20 - 32 mmol/L [facility], [facility].; [facility], [facility] Creatinine [Mass/Vol] 0.84 mg/dL Normal 0.50 - 1.05 mg/dL [facility], [facility].; [facility], [facility]. GFR/1.73 sq M.predicted among non-blacks MDRD (S/P/Bld) [Vol rate/Area] 76 mL/min/{1.73_m2} Normal [facility], [facility].; [employer] [facility] Glucose [Mass/Vol] 99 mg/dL Normal 65 - 99 mg/dL [facility].; [facility], [facility] Potassium [Moles/Vol] 4.4 mmol/L Normal 3.5 - 5.3 mmol/L [facility], [facility].; [facility], [employer]. Protein [Mass/Vol] 8.1 g/dL Normal 6.1 - 8.1 g/dL [facility], [facility].; [employer] Sodium [Moles/Vol] 140 mmol/L Normal 135 - 146 mmol/L [facility], [facility].; [employer] [facility] Triglyceride [Mass/Vol] 265 mg/dL Abnormal [facility], [facility].; [facility], [facility] Urea nitrogen [Mass/Vol] 16 mg/dL Normal 7 - 25 mg/dL [facility], [facility].; [employer] [facility], [facility]. No Panel Informationon 04-23 [id number] SEE NOTE Normal [facility].; [employer] [facility], [employer] Work Phone: BUN/CREATININE RATIO NOT APPLICABLE Normal 6 - [address] [facility], [facility].; [employer] CHOL/HDLC RATIO 6.2 Abnormal [facility], [facility].; [employer] [facility] [employer] [facility]. EXTRA LAVENDER-TOP TUBE See Below Normal H [facility] [employer].; [employer] [facility] [employer]. Work Phone: GLOBULIN 3.1 Normal 1.9 - 3.7 [employer] [facility] HospitalThe [employer].; [employer] [facility] HospitalThe [employer]. NON HDL CHOLESTEROL 235 Abnormal [facility] [employer] [facility].; [employer] Screen Cleaner Cytology Reporton 2019 Screen Cleaner Cytology Report . Pathology Reports Accession: Collected Date/Time: Received Date/Time: Pathologist: [id number] 02/23/2020 09:37 EDT 02/23/2020 18:00 EDT MD LEIGH ANN WALL Screen Cleaner Cytology Report SPECIMEN: Specimen Description: Liquid Prep Reflex ASCUS Specimen: No Source Given Screening or Diagnostic: Screening RELEVANT HISTORY: LMP: not given [id number] SPECIMEN ADEQUACY: Specimen processed and examined, but unsatisfactory for evaluation of epithelial abnormality because of Scant Cellularity. INTERPRETATION/RESULT S: UNSATISFACTORY SPECIMEN. COMMENT: This Pap Test was analyzed by the CitizenNet[employer] Test Imaging System. Due to technical imaging issues or the physical propertied of the specimen slide, a manual screen was indicated. Electronically Signed by Pathology report verified by [facility] Screened by: CHRISTINA RM Electronically signed by LEIGH ANN WALL MD Sign-Out Date: 03/04/2020 16:39 Performing Lab: [facility], [address] [place] [address] Disclaimer The Pap test is a screening test for cervical cancer. As evidenced by published data, it is subject to both inherent false negative and false positive results. Your patient's results should be interpreted in context with pertinent clinical history including gynecological examination. [facility] Comment on above: Performed By: #### G YCR #### [place] [address] HPVon 01-22-2020 HPV Interp Normal See Interp HPVN [facility] Comment on above: Order Comment: Order placed by AP_HPV_ORDER rule from [id number] Result Comment: High Risk HPV Typing: NEGATIVE [...] and sufficient DNA to be detected. See Interp HPVN Performed By: #### H PV #### [place] [address] HPV Source Cervix [facility] Comment on above: Order Comment: Order placed by AP_HPV_ORDER rule from [id number] Performed By: #### H PV #### [place] [address] Screen Cleaner Cytology Reporton 2019 Screen Cleaner Cytology Report . Pathology Reports Accession: Collected Date/Time: Received Date/Time: Pathologist: [id number] 01/10/2020 09:48 EDT 01/10/2020 18:00 EDT CHARLIE DE JESUS MD Screen Cleaner Cytology Report SPECIMEN: Specimen Description: Liquid Prep w/ HPV Specimen: Cervical/Endocervical Screening or Diagnostic: Screening RELEVANT HISTORY: LMP: not given Post Menopausal: Yes [id number] SPECIMEN ADEQUACY: Specimen processed and examined, but unsatisfactory for evaluation of epithelial abnormality because of Scant Cellularity. INTERPRETATION/RESULT S: UNSATISFACTORY SPECIMEN. COMMENT: This Pap Test was analyzed by the [facility] ThinPrep Test Imaging System. Processing failed. Manual screening was indicated. Electronically Signed by Pathology report verified by [facility] Screened by: SHELLEY DW Electronically signed by CHARLIE DE JESUS Sign-Out Date: 01/18/2020 12:40 Performing Lab: [address] Disclaimer The Pap test is a screening test for cervical cancer. As evidenced by published data, it is subject to both inherent false negative and false positive results. Your patient's results should be interpreted in context with pertinent clinical history including gynecological examination. [facility] Comment on above: Performed By: #### G YCR #### [place] [address] Vital Signs Date Time Vital Sign Value Performing Clinician Facility 12-16-2023 [id number] Diastolic blood pressure 99 mm[Hg] Kya Walker MA [facility], [facility].; [employer] [facility] [employer]. Comment on above: Patient Position: Sitting; Cuff Location : Left Arm; Cuff Size: Standard 12-16-2023 [id number]:[id number] Systolic blood pressure 137 mm[Hg] Kya Walker [facility] Inc.; [employer]. Comment on above: Patient Position: Sitting; Cuff Location : Left Arm; Cuff Size: Standard 12-16-2023 09:0400 Diastolic blood pressure 91 mm[Hg] Kya Walker MA [facility], Inc.; [employer]. Comment on above: Patient Position: Sitting; Cuff Location : Left Arm; Cuff Size: Standard 12-16-2023 09:0400 Systolic blood pressure 128 mm[Hg] Kya Walker MA [facility] Inc.; [employer]. Comment on above: Patient Position: Sitting; Cuff Location : Left Arm; Cuff Size: Standard 12-16-2023 09:0400 Body height 167.64 cm Kya Walker MA [facility], [facility].; [employer] [facility] 12-16-2023 09:0400 Body mass index (BMI) [Ratio] 39.06 kg/m2 Kya Walker MA [facility], [facility].; [employer] [facility], [facility]. 12-16-2023 09:0400 Body surface area Derived from formula 2.17 m2 Kya Walker [facility].; [employer] [facility], [facility]. 12-16-2023 09:040 Body weight 109.77 kg Kya Walker [facility] [employer] [facility].; [employer] [facility], [facility]. 12-16-2023 09:0400 Diastolic blood pressure 108 mm[Hg] Kya Walker MA [facility].; [employer], [employer]. Comment on above: Patient Position: Sitting; Cuff Location : Left Arm; Cuff Size: Standard 12-16-2023 09:21-0400 Heart rate 80 /min Kya Walker [facility].; [employer] [facility] HospitalThe [employer]. Comment on above: Pattern: Regular 12-16-2023 09:21-0400 Systolic blood pressure 145 mm[Hg] Kya Walker MA [facility] [employer] [facility].; [facility] [employer]. Comment on above: Patient Position: Sitting; Cuff Location : Left Arm; Cuff Size: Standard 09-17-2023 08:50-0400 Body height 167.64 cm Kya Walker [facility] [employer] [facility].; [employer] [facility]. 09-17-2023 08:50-0400 Body mass index (BMI) [Ratio] 39.22 kg/m2 Kya Walker [facility].; [facility] [employer] [facility]. 09-17-2023 08:50-0400 Body surface area Derived from formula 2.17 m2 Kya Walker MA [facility] [employer] [facility].; [facility] [employer] [facility]. 09-17-2023 08:50-0400 Body weight 110.22 kg Kya Walker MA [facility] [employer] [facility].; [employer] [facility] [employer] [facility]. 09-17-2023 08:50-0400 Diastolic blood pressure 113 mm[Hg] Kya Walker MA [facility] [employer] [facility].; [employer] [facility]The [employer]. Comment on above: Patient Position: Sitting; Cuff Location : Left Arm; Cuff Size: Standard 09-17-2023 08:50-0400 Heart rate 71 /min Kya Walker [facility] [employer] [facility].; [employer]. Comment on above: Pattern: Regular 09-17-2023 08:50-0400 Systolic blood pressure 165 mm[Hg] Kya Walker MA [facility] [employer] [facility].; [employer]. Comment on above: Patient Position: Sitting; Cuff Location : Left Arm; Cuff Size: Standard 2023 08:08-0400 Diastolic blood pressure 100 mm[Hg] Renay Masterson MA [facility] [employer] [facility].; [employer]. Comment on above: Patient Position: Sitting; Cuff Location : Left Arm; Cuff Size: Standard 2023 08:08-0400 Heart rate 76 /min Renay Masterson MA [facility] [employer] [facility].; [employer] [facility] [employer]. Comment on above: Pattern: Regular 2023 08:08-0400 Systolic blood pressure 172 mm[Hg] Renay Masterson MA [facility] [employer] [facility].; [employer]. Comment on above: Patient Position: Sitting; Cuff Location : Left Arm; Cuff Size: Standard 2023 08:07-0400 Body height 167.64 cm Renay Masterson MA [facility], [facility].; [employer] [facility]. 2023 08:07-0400 Body mass index (BMI) [Ratio] 40.03 kg/m2 Renay Masterson MA [facility] [employer] [facility].; [employer] [facility] [employer] [facility]. 2023 08:07-0400 Body surface area Derived from formula 2.19 m2 Renay Masterson MA [facility] [employer] [facility].; [employer] [facility]. 2023 08:07-0400 Body weight 112.49 kg Renay Masterson MA [facility] [employer] [facility].; [employer]. 2023 08:07-0400 Diastolic blood pressure 123 mm[Hg] Renay Masterson MA [facility] [employer] [facility].; [employer]. Comment on above: Patient Position: Sitting; Cuff Location : Left Arm; Cuff Size: Standard 2023 08:07-0400 Heart rate 76 /min Renay Masterson MA [facility] [employer] [facility].; [employer]. Comment on above: Pattern: Regular 2023 08:07-0400 Systolic blood pressure 168 mm[Hg] Renay Masterson MA [facility] [employer] [facility].; [employer]. Comment on above: Patient Position: Sitting; Cuff Location : Left Arm; Cuff Size: Standard 04-30-2022 10:05-0400 Body height 167.64 cm Keturah Craft LPN [facility], [facility].; [employer]. 04-30-2022 10:05-0400 Body mass index (BMI) [Ratio] 39.22 kg/m2 Keturah Craft LPN [employer] [facility].; [employer]. 04-30-2022 10:05-0400 Body surface area Derived from formula 2.17 m2 Keturah Craft HELLEN [employer], [facility].; [employer], [facility]. 04-30-2022 10:05-0400 Body weight 110.22 kg Keturah Craft FORESTRY BIOLOGY SPECIALIST [employer], [facility].; [employer], [facility]. 04-30-2022 10:05-0400 Diastolic blood pressure 109 mm[Hg] Keturah Craft FORESTRY BIOLOGY SPECIALIST [employer], [facility].; [employer]. Comment on above: Patient Position: Sitting; Cuff Location : Left Arm; Cuff Size: Standard 04-30-2022 10:05-0400 Heart rate 67 /min Keturah Craft FORESTRY BIOLOGY SPECIALIST [employer], [facility].; [employer], [employer]. Comment on above: Pattern: Regular 04-30-2022 10:05-0400 Systolic blood pressure 158 mm[Hg] Keturah Craft FORESTRY BIOLOGY SPECIALISTSan Juan Regional Medical CenterGameotic, [employer].; [employer]. Comment on above: Patient Position: Sitting; Cuff Location : Left Arm; Cuff Size: Standard 09-01-2014 10:0500 Body height 167.64 cm Speedy Phan PA-C Work Phone: [employer].; [employer]. 09-01-2014 10:26-0500 Body mass index (BMI) [Ratio] 32.89 kg/m2 Speedy Phan PA-C Work Phone: [employer].; [employer]. 09-01-2014 10:26-0500 Body surface area Derived from formula 2.02 m2 Speedy Phan PA-C Work Phone: [employer].; [employer]. 09-01-2014 10:26-0500 Body temperature 102.8 [degF] Speedy Phan PA-C Work Phone: [employer].; [employer]. Comment on above: Method: Tympanic 09-01-2014 10:26-0500 Body weight 92.44 kg Speedy Phan PA-C Work Phone: [employer]; [employer] 09-01-2014 10:26-0500 Diastolic blood pressure 64 mm[Hg] Speedy Phan PA-C Work Phone: [employer]; [employer]. Comment on above: Patient Position: Sitting; Cuff Location : Left Arm; Cuff Size: Standard 09-01-2014 10:26-0500 Heart rate 130 /min Speedy Phan PA-C Work Phone: [employer]; [employer]. Comment on above: Pattern: Regular 09-01-2014 10:26-0500 Inhaled oxygen concentration 20 % Speedy Phan PA-C Work Phone: [employer]; [employer]. Comment on above: Room air 09-01-2014 10:26-0500 Inhaled oxygen concentration 21 % Speedy Phan PA-C Work Phone: [employer]; [employer]. Comment on above: Room air 09-01-2014 10:26-0500 SaO2% (BldA) [Mass fraction] 97 % Speedy Phan PA-C Work Phone: [employer]; [employer] 09-01-2014 10:26-0500 Systolic blood pressure 108 mm[Hg] Speedy Phan PA-C Work Phone: [employer]; [employer] Comment on above: Patient Position: Sitting; Cuff Location : Left Arm; Cuff Size: Standard 11-04-2012 11:130400 Body weight 108.41 kg Speedy Phan PA-C Work Phone: [employer]; [employer] 11-04-2012 11:130400 Diastolic blood pressure 92 mm[Hg] Speedy Phan PA-C Work Phone: [employer]; [employer] Comment on above: Patient Position: Sitting; Cuff Location : Left Arm; Cuff Size: Standard 11-04-2012 11:130400 Heart rate 72 /min Speedy Phan PA-C Work Phone[facility] [employer] [facility]; [facility] [employer] [facility] Comment on above: Pattern: Regular 11-04-2012 11:130400 Systolic blood pressure 137 mm[Hg] Speedy Phan PA-C Work Phone: [facility] [employer]; [facility] Comment on above: Patient Position: Sitting; Cuff Location : Left Arm; Cuff Size: Standard Encounters Encounter Date Encounter Type Care Provider Facility Start: 12-29-2024 ambulatory Speedy Phan Facility:[facility] Start: 12-15-2024 End: 12-15-2024 ambulatory Speedy Phan PA Work Phone: [facility] Work Phone: Start: 12-15-2024 End: 12-15-[address] Yesenia Todd MD -Laboratory Work Phone: Start: 12-15-2024 End: 12-15-2024 ambulatory [facility] Facility:[facility] Start: 09-01-2024 End: 09-01-2024 ambulatory Speedy Phan PA Work Phone: [facility] Work Phone: Start: 09-01-2024 End: 09-01-[address] Yesenia Todd MD -Laboratory Work Phone: Start: 09-01-2024 End: 09-01-[facility] Start: 06-14-2024 End: 06-14-[address] Nav Garza MD -[facility] Start: 06-14-2024 End: 06-14-2024 ambulatory Nav Garza Facility:[facility] Start: 06-05-2024 End: 06-05-[address] Yesenia Todd MD -Laboratory Work Phone: Start: 06-05-2024 End: 06-05-2024 ambulatory [facility] Facility:[facility] Start: 03-13-2024 End: 03-13-2024 ambulatory [facility] Facility:[facility] Start: 02-18-2024 ambulatory SPEEDY PHAN [facility] Start: 02-03-2024 End: 02-03-2024 ambulatory [facility] Start: 01-26-2024 End: 01-26-2024 ambulatory [facility] Start: 12-16-2023 End: 12-16-2023 Orders Speedy Phan PA-C Work Phone: [employer] Start: 12-16-2023 End: 12-16-2023 Patient encounter procedure Speedy Phan PA-C Work Phone: [employer] Start: 10-18-2023 End: 10-18-2023 ambulatory [facility] Work Phone: Start: 10-18-2023 End: 10-18-2023 Patient encounter procedure [facility] Work Phone: Start: 09-17-2023 End: 09-17-2023 Office outpatient visit 15 minutes Speedy Phan PA-C Work Phone: [employer] Start: 08-23-2023 End: 08-23-2023 Medication Speedy Phan PA-C Work Phone: [employer] Start: 08-23-2023 End: 08-23-2023 ambulatory [facility] Work Phone: Start: 08-23-2023 End: 08-23-2023 Patient encounter procedure [facility] Work Phone: Start: 08-19-2023 End: 08-20-2023 Orders Speedy Phan PA-C Work Phone: [employer] Start: 06-07-2023 End: 06-07-2023 ambulatory [facility] Work Phone: Start: 06-07-2023 End: 06-07-2023 Patient encounter procedure [facility] Work Phone: Start: 05-24-2023 End: 05-24-2023 Medication Speedy Phan PA-C Work Phone: [employer] Start: 05-21-2023 End: 05-21-2023 Orders Speedy Phan PA-C Work Phone: [employer] Start: 03-29-2023 End: 03-29-2023 ambulatory [facility] [facility] Work Phone: Start: 03-29-2023 End: 03-29-2023 Patient encounter procedure [facility] [place] Work Phone: Start: 02-17-2023 End: 02-17-2023 Medication Speedy Phan PA-C Work Phone: [employer] Start: 02-15-2023 End: 02-15-2023 Orders Speedy Phan PA-C Work Phone: [employer] Start: 02-09-2023 End: 02-09-2023 Orders Speedy Phan PA-C Work Phone: [employer] Start: 2023 End: 2023 Office outpatient visit 25 minutes Speedy Phan PA-C Work Phone: [employer] Start: 09-25-2022 End: 09-25-2022 Orders Speedy Phan PA-C Work Phone: [employer] Start: 05-05-2022 End: 05-05-2022 Historical Summary Speedy Phan PA-C Work Phone: [employer] Start: 04-30-2022 End: 04-30-2022 Patient encounter procedure Speedy Phan PA-C Work Phone: [facility] Start: 04-30-2022 End: 04-30-2022 Physical examination Speedy Phan PA-C Work Phone: [facility]; [facility] Start: 04-23-2022 End: 04-23-2022 Orders Speedy Phan PA-C Work Phone: [facility] Start: 04-10-2022 End: 04-10-2022 Orders Speedy Phan PA-C Work Phone: [facility] Start: 09-01-2014 End: 09-01-2014 Office outpatient visit 15 minutes Speedy Phan PA-C Work Phone: [facility] Start: 11-04-2012 End: 11-04-2012 Patient encounter procedure Speedy Phan PA-C Work Phone: [facility] Physical examination Renay Masterson MA [facility]; [facility] Physical examination Kya Walker MA [facility]; [facility] Physical examination Kya Walker MA [facility]; [facility] Procedures Date Procedure Procedure Detail Performing Clinician Start: 06-14-2024 X-ray of both feet Kimberly marisol Emilie PA Work Phone: Start: 12-16-2023 End: 12-16-2023 Adv care pln/ no alt dcsn mkr docd or refusal Speedy Martinez Phan PA-C Work Phone: Start: 12-16-2023 End: 12-16-2023 Depression screening Speedy Martinez Phan PA-C Work Phone: Start: 12-16-2023 End: 12-16-2023 Falls risk assessment documented Speedy J Phan PA-C Work Phone: Start: 12-16-2023 End: 12-16-2023 PPPS, subseq visit Speedy Martinez Phan PA-C Work Phone: Start: 12-16-2023 End: 12-16-2023 Pt falls assess docd 2/> falls/fall w/injury/yr Speedy Michelle Phan PA-C Work Phone: Start: 12-16-2023 End: 12-16-2023 Scr dep neg, no plan reqd Speedy Michelle Phan PA-C Work Phone: Start: 12-16-2023 End: 01-27-2024 Screening mammography bi 2-view breast inc cad Speedy Michelle Phan PA-C Work Phone: Start: 09-25-2022 End: 11-14-2022 Screening mammography bi 2-view breast inc cad Teresa Aviles [employer]IST Work Phone: Start: 04-30-2022 End: 04-30-2022 Adv care pln/ no alt dcsn mkr docd or refusal Speedy Michelle Phan PA-C Work Phone: Start: 04-30-2022 End: 04-30-2022 Depression screening Speedy Michelle Phan PA-C Work Phone: Start: 04-30-2022 End: 04-30-2022 Falls risk assessment documented Speedy J Phan PA-C Work Phone: Start: 04-30-2022 End: 04-30-2022 Initial preventive exam Speedy Michelle Phan P A-C Work Phone: Start: 04-30-2022 [...] hysterectomy Renay Masterson MA Comment on above: VaginalDr. Marti Poole has ovaries Start: 11-04-2012 End: 11-14-2012 Radiologic examination ankle 2 views Guille Bro MD Work Phone: Hernia repair Renay Pino A Hernia repair Kya zapata MA Lumpectomy of breast Renay Masterson MA Lumpectomy of breast Kya Walker MA Plan of Treatment Date Care Activity Detail Author Start: 12-16-2023 Screening mammograph y bi 2-view breast inc cad Mammogram Bilateral Screening Digital w/CAD (34542) with 3D (tomosynthesis), bilateral (43536) Start: 16-Dec-2023 Intent [employer] Start: 12-16-2023 Assay of thyroid stimulating hormone tsh TSH (THYROID STIMULATING HORMONE) ([id number]) Start: 16-Dec-2023 09:35-04:00 Request [employer] Start: 12-16-2023 Patient encounter procedure Medical; PHYSICAL - awv [employer]. Start: 16-Dec-2023 09:10-04:00 ERMA Phan Appointment Request [employer]. Start: 11-19-2023 Assay of thyroid stimulating hormone tsh TSH (THYROID STIMULATING HORMONE) ([id number]) Start: 19-Nov-2023 Request [employer] Start: 11-19-2023 Nursing evaluation o f patient and report Medical; Nurse visit - tsh [employer]. Start: 19-Nov-2023 9:20 NURSE, FLOAT Appointment Request [employer]. Start: 11-19-2023 Patient encounter procedure Medical; PHYSICAL - AWV/TSH [employer]. Start: 19-Nov-2023 08:50-04:00 ERMA Phan Appointment Request [employer]. Start: 08-19-2023 Assay of thyroid stimulating hormone tsh TSH (THYROID STIMULATING HORMONE) ([id number]) Start: 19-Aug-2023 8:13 Request [employer] Payers Date Payer Category Payer Medicare [id number] 2024 Self-pay [id number] 1955 Unknown [id number] 2.16.8 [id number] 1955 Unknown [id number] 2.16.8 [id number] 1955 Unknown [id number] 2.16.8 [id number] Unknown Unknown [id number] Unknown [id number] 2.16.8 [id number] Unknown [id number] 2.16.8 [id number] Unknown [id number] 2.16.8 [id number] Unknown [id number] 2.16.8 [id number] Unknown [id number] 2.16.8 [id number] Unknown [id number] 2.16.8 [id number] Social History Date Type Detail Facility Start: 05-24-2020 End: 05-24-2020 Tobacco smoking status GAIS Unknown if ever smoked [facility] Start: 1955 Sex Assigned At Female [facility] Tobacco Use: Tobacco Use: ; N ever smoker. [employer] Start: 06-14-[address] [facility] Start: 09-14-2024 Sex Female (finding) [facility] NEGATED: Highlighted row No Social History Information Available No Social History Information Available [employer] Work Phone: Evaluation note Note Date & Type Note Facility Evaluation note No assessment information availa ble [facility] Work Phone: Reason for referral (narrative) Note Date & Type Note Facility Reason for referral (narrative) No reason for referral information available [facility] Work Phone: Summary Purpose Family History No Family History Records Found Father Status:Active Comments:Heart D isease, HTN Father [...] HTN Advance Directives No Advanced Directives Records Found Advance Directive Response Recorded Date/ Time Living Will No June 03 1:31pm Power of Instructional Technologist No June 03, 2020 1:31pm Advance Directive Response Recorded Date/ Time Living Will No June 03 12:31pm Power of Instructional Technologist No June 03, 2020 12:31pm Chief Complaint and Reason for Visit Chief Complaint PAIN- COPY PCP Chief Complaint Admit Date INT LABS June 05, 2024 8 :23am XRAY June 14, 2024 9:38am Additional Source Comments INFORMATION SOURCE (unrecogn ized section and content) DATE CREATED AUTHOR 03/04/2020 [facility] ([place]) DATE CREATED AUTHOR AUTHOR'S ORGANIZ ATION 12/31/2023 [facility] DATE CREATED AUTHOR AUTHOR'S ORGANIZ ATION 02/19/2024 [facility] DATE CREATED AUTHOR AUTHOR'S ORGANIZ ATION 12/26/2024 [facility] Care Teams (unrecognized sec tion and [...] 05, 2024 End: June 05, 2024 Dr. Yeesnia Todd MD Attending Provider Active Start: June [...] September 01, 2024 End: September 01, 2024 Team Status: Inactive Member Role Status Dates JEREMIAS Garcia Primary Care Provider Active S tart: December 15, 2024 End: December 15, 2024 Dr. Yesenia Todd MD Attending Provider Active Start: December 15, 2024 End: December 15, 2024 Dr. Yesenia Todd MD Referring Provider Active Start: December 15, 2024 End: December 15, 2024 Goals (unrecognized section and content) Goals [...] BE BASED ON THE PRIMARY CLINICAL RECORDS. [employer] [facility]. provides no warranty or guarantee of the accuracy or completeness of information in this document.
--- NOTE | 2024-12-29 07:09 | US_ITS ---
PROCEDURE: LIVER 12/29/2024 REASON FOR EXAM: ELEVATED LINER ENZYMES COMPARISON: None FINDINGS: Liver: Diffusely echogenic suggesting fatty infiltration.. Focal fatty sparing along the gallbladder fossa. The liver measures 15.5 cm. Gallbladder: Multiple echogenic gallstones are identified. The gallbladder wall measures 1.3 mm. Common bile duct: Normal measuring 2.8 mm . Pancreas: Questionable 7 mm x 6 mm x 5 mm cyst in the body of the pancreas. Other: Visualized portions of the right kidney are unremarkable. No right upper quadrant ascites. US/Liver IMPRESSION: Fatty infiltration of the liver with focal fatty sparing. Multiple gallstones. Findings suggestive of a small 7 mm x 6 mm x 5 mm cyst in the body of the pancr eas. Reading Location: [id number]
== END | disposition home or self-care (01) ==
PROVIDERS: Referring Provider Internal Medicine Rheumatology; Visit Provider Internal Medicine Rheumatology
DX: M06.4 Inflammatory polyarthropathy (principal); M17.0 Bilateral primary osteoarthritis of knee; M25.571 Pain in right ankle and joints of right foot; R76.8 Other specified abnormal immunological findings in serum
CPT/HCPCS: 76705

== ENCOUNTER → 2025-01-15 | Outpatient (CLI) | payer MEDICARE, SELFPAY ==
[2025-01-15 09:32] LABS: AST(SGOT) 22 U/L (<=31); Alanine Aminotransfer ALT/SGPT 22 U/L (<=34); Albumin, Serum 4.6 g/dL (3.4-4.8); Alkaline Phosphatase 88 U/L (35-104); Anion Gap 11 (5-15); BUN 18 mg/dL (4-19); BUN/Creat Ratio 25.2 RATIO (10-20); Calcium,Total 9.9 mg/dL (7.6-11.0); Carbon Dioxide 22.7 mmol/L (21.0-32.0); Chloride 107 mmol/L (98-108); Globulin 2.9 g/dL (2.2-4.2); Glucose 94 mg/dL (70-99); Potassium 4.3 mmol/L (3.3-5.1)
== END | disposition home or self-care (01) ==
LOC: LAB 08:23
PROVIDERS: Referring Provider Internal Medicine Rheumatology; Visit Provider Internal Medicine Rheumatology
DX: M06.4 Inflammatory polyarthropathy (principal); M25.571 Pain in right ankle and joints of right foot; M17.0 Bilateral primary osteoarthritis of knee; R76.8 Other specified abnormal immunological findings in serum
CPT/HCPCS: 36415; 80053

== ENCOUNTER 2025-04-13 05:28 | Day surgery (SDC) | payer MEDICARE, SELFPAY ==
[2025-04-13] VITALS (9 sets, daily range): BP systolic 129–143; BP diastolic 72–85; PULSE 72–87; RESP 9–20; TEMP 36.1–36.4; O2SAT 88–100; BMI 37.9
--- NOTE | 2025-04-13 06:36 | EKG12_ITS ---
Test Reason : PREOP Blood Pressure : */* mmHG Vent. Rate : 68 BPM Atrial Rate : 68 BPM P-R Int : 160 ms QRS Dur : 92 ms QT Int : 394 ms P-R-T Axes : 0 -12 20 degrees QTcB Int : 418 ms Normal sinus rhythm Normal ECG When compared with ECG of 28-May-2020 09:38, No significant change was found Confirmed by TRAVIS LÓPEZ, RAYMOND ([id number]), editorial clerk AGUILAR WEINSTEIN ([id number]) on 04/17/2025 7:58:20 AM Referred By: Joyce Faulkner Confirmed By: RAYMOND ROBLES MD
[2025-04-13] MEDS: Lactated Ringers 1,000 ML 15 ML IV (06:41)
--- NOTE | 2025-04-13 06:49 | PCM.PRE.AN2 ---
ASA Classification* ASA Classification ASA Classification: 2 Assessment & Plan Anesthesia* Anesthesia Assessment Anesthesia Assessment: Discussed sedation and/or anesthesia options, risks, benefits, and alternatives with patient/parents/legal guardian/POA. Questions invited. The patient/parents/legal guardian/POA seems to understand and agrees to proceed with anesthesia plan. Reviewed the physical assessment, medical history, allergy history and patient home medications list prior to surgery/procedure/anesthetic and documented any changes. Performed airway and anesthesia risk assessments. Anesthesia Type Anesthesia Type: General History Source History Obtained from:: Patient and Chart Anesthesia Focused Assessment* Temperature: 97.3 F Pulse Rate: 72 Blood Pressure: 143/85 Respiratory Rate: 16 Pulse Ox: 100 Oxygen Delivery Method: Room Air Airway Assessment Mouth opens: >3 cm Mallampati Score: III Teeth Condition: Dentures (Patient has full upper and lower dentures. They will come out.) Neck Range of motion (ROM): Limited ROM (Somewhat Decreased) Labs Anesthesia Preop lab: CBC WBC, (4.4-11.0) 5.5 K/mm3 12/15/24, 08:23 RBC, (4.2-5.4) 4.49 M/mm3 12/15/24, 08:23 Hgb, (12.0-15.0) 14.0 g/dL 12/15/24, 08:23 Hct, (37-47) 41.7 % 12/15/24, 08:23 Plt Count, (150-450) 260 K/mm3 12/15/24, 08:23 CHEMISTRY Potassium, (3.3-5.1) 4.3 mmol/L 01/15/25, 08:26 Sodium, (133-145) 141 mmol/L 01/15/25, 08:26 BUN, (4-19) 18 mg/dL 01/15/25, 08:26 Creatinine, (0.70-1.20) 0.73 mg/dL 01/15/25, 08:26 Glucose, (70-99) 94 mg/dL 01/15/25, 08:26 COAG Pre-Assessment Diagnosis/Proposed Procedure Planned Operative Procedure(s): (R) Hernia, Open right Inguinal w/ Mesh Anesthesia History 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 When Was Last Pacemaker Check QUESTION #4 FULL TEXT: You/Your Family Experience fever (hyperthermia) with Anesthesia Last Oral Intake Last Oral intake: Last Oral Intake NPO since 22:00 04/13/25 06:19 Meds taken in AM with sips of water? 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 Female Yes 03/30/25 09:42 HX of Motion Sickness No 03/30/25 09:42 HX of N/V After Surgery No 03/30/25 09:42 Non-Smoker Yes 03/30/25 09:42 Duration of Surgery greater Yes 03/30/25 09:42 than 60 minutes Number of Risk Factors 3 03/30/25 09:42 PONV Score Moderate Risk 03/30/25 09:42 Height & Weight Height & Weight: Anesthesia: Height & Weight Height 5 ft 7 in 04/13/25 06:19 Weight: 109.86 kg 04/13/25 06:19 Body Mass Index (BMI) 37.9 04/13/25 06:19 Respiratory Assessment Respiratory Assessment - pulp mill team leader: Respiratory Tract Infection Hx - pulp mill team leader Hx Respiratory Tract Infection No 03/30/25 09:42 STOP Sleep Apnea STOP Sleep Apnea - pulp mill team leader: STOP Sleep Apnea - pulp mill team leader Hx Hypertension No 03/30/25 09:42 Hx Sleep Apnea No 03/30/25 09:42 CPAP BIPAP Do you snore loudly (louder No 03/30/25 09:42 than talking or can be heard Do you often feel tired/ No 03/30/25 09:42 fatigued/ sleepy during daytime? Has anyone observed you stop No 03/30/25 09:42 breathing during sleep? STOP Results Negative 03/30/25 09:42 QUESTION #5 FULL TEXT : Do you snore loudly (louder than talking or can be heard through closed doors)? 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 Specify any problems Hx of Preganancy in last 3 No 03/30/25 09:42 Months Nurse Filling Out Transfusion JZOLLINGE 03/30/25 09:42 & Questions: Date: 03/30/25 03/30/25 09:42 Time: 09:43 03/30/25 09:42 Patient unable to answer at this time (ie. confused, unrespo /Reproduction History /Reproductive History - pulp mill team leader: /Reproductive Hx- pulp mill team leader Hx Now No 03/30/25 09:42 Gestational Age (in weeks): EDC: Hx Hx Para Hx Section SAB No 03/30/25 09:42 Active Medications Active Medications: Current Medications Generic Name Dose Route Start Last Admin Trade Name Freq PRN Reason Stop Dose Admin Cefazolin Sodium 2 gm/ Sodium 110 mls @ 200 mls/hr 04/13/25 07:30 Chloride IV 04/13/25 08:02 INTRAOP ONE Lactated Ringer's 1,000 mls @ 15 mls/hr 04/13/25 06:00 04/13/25 06:41 IV 15 mls/hr .Q48H JESSA Administration PFSH Medical History Wears glasses Wears partial dentures Rheumatoid arthritis Fatty liver Non-smoker Inguinal hernia Minor surgery performed Home Medications ?Medication ?Instructions ?Recorded ?Last Taken ?Type fesoterodine 4 mg tablet,extended 4 mg PO QDAY #90 tabs 02/12/25 04/13/25 04:45 Rx release 24 hr methotrexate sodium 2.5 mg tablet 2.5 mg PO QWEEK 02/12/25 04/05/25 History tramadol 50 mg tablet 50 mg PO TID PRN pain 02/16/25 04/08/25 History folic acid 1 mg tablet 2 mg PO DAILY 03/30/25 04/05/25 History multivitamin (Daily Value tablet) 1 tab PO DAILY 03/30/25 04/12/25 History Allergy/AdvReac Type Severity Reaction Status Date / Time No Known Allergies Allergy Verified 04/13/25 06:14 Family History Other Breast cancer Diabetes Pancreatic cancer Surgical History Hx of colonoscopy with polypectomy S/P left inguinal herniorrhaphy Delivery by section H/O tubal ligation H/O ventral hernia repair H/O cystoscopy History of bladder surgery H/O: hysterectomy Social History Smoking Status: Never smoker alcohol intake: never substance use type: does not use what type of physical activity do you participate in: other frequency: other duration: other do you feel safe at home: Yes Review of Systems (Anesthesia) ROS Narrative System reviewed and no additional complaints, except as documented.
--- NOTE | 2025-04-13 07:21 | PCM.HP.STD ---
HPI - General General Date of Service: 04/13/25 HPI Narrative ROMA CALDERON, is a 70 F who presents for right inguinal hernia repair with mesh. Patient states that she has not had much pain with this after was reduced in the office. Office visit 02/16/2025 HPI HPI: 70-year-old female presents due to right inguinal hernia. Patient states she has had this for about a year does have occasional pain with this denies any nausea and vomiting due to this. Patient did have a previous open left inguinal hernia repaired with Dr. Natan Calderon in March 2018. patient also had previous lower midline hernia also repaired with Dr. Calderon previous to 2017. [facility] Medical History Wears glasses Wears partial dentures Rheumatoid arthritis Fatty liver Non-smoker Inguinal hernia Minor surgery performed Home Medications ?Medication ?Instructions ?Recorded ?Last Taken ?Type fesoterodine 4 mg tablet,extended 4 mg PO QDAY #90 tabs 02/12/25 04/13/25 04:45 Rx release 24 hr methotrexate sodium 2.5 mg tablet 2.5 mg PO QWEEK 02/12/25 04/05/25 History tramadol 50 mg tablet 50 mg PO TID PRN pain 02/16/25 04/08/25 History folic acid 1 mg tablet 2 mg PO DAILY 03/30/25 04/05/25 History multivitamin (Daily Value tablet) 1 tab PO DAILY 03/30/25 04/12/25 History Allergy/AdvReac Type Severity Reaction Status Date / Time No Known Allergies Allergy Verified 04/13/25 06:14 Family History Other Breast cancer Diabetes Pancreatic cancer Surgical History Hx of colonoscopy with polypectomy S/P left inguinal herniorrhaphy Delivery by section H/O tubal ligation H/O ventral hernia repair H/O cystoscopy History of bladder surgery H/O: hysterectomy Social History Smoking Status: Never smoker alcohol intake: never substance use type: does not use what type of physical activity do you participate in: other frequency: other duration: other do you feel safe at home: Yes Vital Signs Vital Signs Vital Signs: 04/13/25 06:17 04/13/25 06:19 04/13/25 06:56 Temperature 97.3 F L 97.3 F L Temperature Source Temporal Pulse Rate 72 72 Respiratory Rate 16 16 Respiratory Pattern Normal Blood Pressure 143/85 H 143/85 H Blood Pressure Mean 104 Blood Pressure Source Monitor Blood Pressure Position Semi-Fowlers Blood Pressure Location Right Arm Pulse Ox 100 100 Oxygen Delivery Method Room Air Room Air Weight Weight: 242 lb 3.2 oz Body Mass Index (BMI) 37.9 Physical Exam Const alert, oriented x3 and no apparent distress HEENT normocephalic and head/scalp atraumatic Resp normal respiratory effort Cardio regular rate GI soft to palpation and non-tender; Negative for non-distended GI Narrative: Right inguinal hernia reduced Palpation: Negative for guarding Extremity no clubbing, cyanosis or edema Skin no rashes or lesions noted Neuro CN's II-XII intact bilaterally Psych mental status grossly normal Assessment & Plan Assessment/Plan (1) Inguinal hernia: QUALIFIERS: Obstruction and gangrene presence: without obstruction or gangrene Laterality: unilateral Recurrence: non-recurrent Qualified Code(s): K40.90 - Unilateral inguinal hernia, without obstruction or gangrene, not specified as recurrent PLAN: Plan Plan to do a open right inguinal hernia repair with mesh. Reviewed the procedure with the patient including the risks, including but not limited to infection, bleeding, paresthesia, chronic pain, injury to small bowel or contents of the spermatic cord, and recurrence. All questions were answered.
[2025-04-13] MEDS: Midazolam 2 MG/2 ML Syringe IV (07:26)
--- NOTE | 2025-04-13 07:30 | HERN_PTH ---
PATIENT: ROMA BOSCH LOC: [facility] U#:[id number] AGE/SX: 70/F ROOM: RE04/13/[address]: Dr. Joyce Faulkner MD : 1955 BED: DIS: 04/13/2025 SPEC #: [id number] RECD: 04/13/25 11:14 STATUS: AARON REQ #: [id number] AUGUSTO: 04/13/25 07:[address]: Joyce Faulkner DEPT: SURGICAL PATHOLOGY RECD BY: Jareth Cary ENTERED: 04/13/25 13:50 SP TYPE: Hernia OTHR DR: NELIDA Garcia Tissues: A - HERNIA Procedures: Surgery Specimen Level II HEADER OPERATION: Hernia, open right inguinal with mesh PRE-OP DIAGNOSIS: Inguinal hernia TISSUE SUBMITTED: A- Right inguinal hernia sac MICROSCOPIC DIAGNOSIS A. Right inguinal region, hernia sac, excision: * Fibroadipose tissue partially covered by an attenuated mesothelium, consistent with hernia sac. MICROSCOPIC DESCRIPTION Slides are reviewed. GROSS DESCRIPTION A. Received in formalin labeled with the patient's name and date of . Designated as right inguinal hernia sac is a 10 x 4.1 x 0.7 cm portion of a pink-red semimembranous tissue with attached, yellow and lobulated soft tissue. There is a single, undesignated suture. Radio Rigger sections are submitted [facility]. [place] 04/13/2025 CPT:97014
[2025-04-13] MEDS: fentaNYL 100 MCG/2 ML Ampul IV (07:33)
[2025-04-13] MEDS: Lidocaine 1% (5 ml sdv) 5 ML Vial IV (07:33)
[2025-04-13] MEDS: Cefazolin 1 GM/5 ML Vial 2 GM IV (07:35)
--- NOTE | 2025-04-13 08:53 | PCM.OPRPT ---
Operative Report (Standard) Operative Information Date of Procedure: 04/13/25 Pre-Operative Diagnosis: Right inguinal hernia Post-Operative Diagnosis: Right direct and indirect inguinal hernia Surgery/Procedure Performed: Right inguinal hernia repair with mesh group fitness assistant department head: Yes Pile Driving Nozzleman: Juanita Reynaga Tasks completed by commercial lines account assistant: Opening & closing and Retracting Type of Anesthesia: General/Supplemental RN Documented Start/Stop Times: Operation Date: 04/13/25 07:30 Case Time Into Pre-Op 04/13/25 05:57 Out of Pre-Op 04/13/25 07:25 Anesthesia Start 04/13/25 07:26 Into Room 04/13/25 07:26 Procedure Start 04/13/25 07:46 Procedure End 04/13/25 09:07 Anesthesia End 04/13/25 09:08 Out of Room 04/13/25 09:08 Into Recovery 04/13/25 09:10 Into Phase II Recovery 04/13/25 10:02 Out of Recovery 04/13/25 10:02 Procedure Start Time: 07:46 Procedure Stop Time: 09:07 Select all DRAINS/GRAFTS/IMPLANTS that apply: Prosthetic device Prosthetic device details: Bard keyhole mesh Lot [id number] ref [id number] Special Medications: Ancef 2 g IV x 1 Estimated Blood Loss: < 10 cc Specimen collected: Yes Description of specimen(s) removed: Hernia sac Description of surgery: Indications: This is a 70-year-old female who had a right inguinal hernia and previous open lower midline hernia repair with mesh. open Right inguinal hernia repair with mesh was elected. Description procedure: The patient was taken to the operating room. A timeout was completed verifying correct patient, procedure, site, positioning, and special equipment prior to beginning procedure. General anesthesia was induced. The right groin was prepped and draped in usual sterile fashion. An incision was marked in the natural skin crease and planned in the near the pubic tubercle. A field block was produced by raising skin wheals along the proposed incision in a skin wound was raised about 1 cm medial to the anterior superior iliac spine using 0.5% Marcaine for a total of 10 mL. Skin incision was made with the knife and deepened through the Billy and Camper's fascia with electrocautery until the aponeurosis of the external oblique was a identified. This was cleaned and the external ring exposed. Hemostasis was achieved in the wound. An incision was made in the midpoint of the external oblique aponeurosis in the direction of its fibers. The ilioinguinal nerve was identified and suture-ligated as it was unable to be moved away for placement of the mesh. Flaps of the external oblique were developed cephalad and inferiorly. Indirect and direct hernias?gross weakening of the floor was seen. Indirect hernia sac was dissected free. The sac was carefully dissected free from the cord down to the level of the internal ring. The round ligament was suture-ligated divided with 3-0 silk. The sac was opened and contents reduced. A finger was passed into the peritoneal cavity. The sac was twisted and suture ligated with a 0 silk. Redundant sac was excised and submitted to pathology. The stump of the sac was checked for hemostasis and allowed to retract into the abdomen. Attention then turned to the floor of the canal which appeared to be grossly weakened without a well-defined defect or sac, 0 silk sutures used to imbricate the floor of the inguinal canal. A Bard keyhole mesh was used after the hole was sutured with 2-0 Prolene. Beginning at the pubic tubercle, the mesh was sutured to the inguinal ligament inferiorly and the conjoined tendon superiorly using interrupted sutures medially and then 2 continuous running sutures of 2-0 Prolene sutures. Care was taken to assure the mesh was placed in the last fashion to avoid excess tension and no neurovascular structures were caught in the repair. Hemostasis was again checked. Area was irrigated with saline. External oblique aponeurosis was closed running suture of 3-0 Vicryl, taking care not to catch the ilioinguinal nerve in the suture line. Billy's fascia was closed with interrupted sutures of 3-0 Vicryl. Skin was closed running subcuticular suture of 4-0 Monocryl with Steri-Strips gauze and Tegaderm. Patient tolerated the procedure well and sent to the postanesthesia care in stable condition. Surgical Findings: See operative report Complications Complications: No
[2025-04-13] MEDS: Lactated Ringers 2,000 ML 2000 ML IV (09:00)
--- NOTE | 2025-04-13 09:00 | EX.PCM.DISCH ---
Discharge Instructions Procedure Hernia Diet Discharge Diet: Light diet - advance as tolerated Activity Discharge Activity: Return to Normal Activity, May Not Drive (for 2-3 days or while taking narcotic pain meds.) and May Shower (with the bandage in place 1-2 days after surgery.) Lifting Restrictions: 20 pounds for 8 weeks. Additional Activity Instructions:: Climbing stairs is fine, walking is encouraged. Sitting in bed may be uncomfortable. Sitting up using your lateral muscles (sitting up sideways) is usually more comfortable. Do not drive, work heavy equipment of sign legal documents for 24 hours. An ice pack can provide more comfort at incision. Pain medications may cause nausea, you should typically eat light foods as you take your pain medications. Pain medications may also cause constipation. If you have difficulty with this, discuss with your doctor. Dressing / Incision Call your doctor if your incision/area has: Continuous Slow Oozing, Sudden Increased Bleeding, Increased Pain/ Swelling, Increased Redness and Foul Smelling Discharge Call your doctor if you observe: Fever of 101 or Higher Suture Line Care: Avoid Pulling/Pushing and Avoid Pinching/Bending Change Dressing in: 3 days (Leave steri-strips in place for 1 week. May protect with a guaze bandaid.) Additional Dressing/Incision Instructions:: Leave the operative bandage on for 2-3 days. When you remove the bandage, leave the steri-strips on place until your follow up appointment or they fall off. Follow Up Care Please Follow Up With: Joyce Faulkner MD When: Please call [phone] for a follow up appointment in 7 days. Test Results: Test results from this visit will be discussed in further detail at your follow-up appointment, if applicable. Discharge Plan Admission Attending Provider: Joyce Faulkner Primary Care Provider: Melly Chaudhry Instructions Additional Instructions / Restrictions: Okay to take ibuprofen 400-600 mg PO q6hr PRN pain and/or Tylenol 650mg PO Q6H PRN pain along with Tramadol. Take all pain meds with food. Tramadol can cause constipation recommend taking daily stool softener (i.e. Colace/docusate) while taking the pain meds. Recommend starting some MiraLAX in 1-2 days if no bowel movement. If still no bowel movement the next day recommend taking magnesium citrate half the bottle and waiting 4-6 hours if still no results take the other half the bottle. Print Language: Azeri Discharge Orders/Prescriptions Prescriptions: Continued methotrexate sodium 2.5 mg tablet 2.5 mg PO QWEEK fesoterodine 4 mg tablet extended release 24 hr 4 mg PO QDAY Qty: 90 3RF folic acid 1 mg tablet 2 mg PO DAILY multivitamin [Daily Value] Tablet 1 tab PO DAILY tramadol 50 mg tablet 50 mg PO TID PRN (Reason: pain) 3 Days Qty: 14 0RF Referrals / Follow Up: Melly Chaudhry PA [Primary Care Provider, Family Practice] Disposition Disposition (needs filled in before D/C Order can be placed): Home, Self Care
--- NOTE | 2025-04-13 09:14 | PCM.POST.ANE ---
Anesthesia: Postop Eval I Current Vital Signs Temperature: 97.0 F Pulse Rate: 87 Blood Pressure: 132/72 Respiratory Rate: 20 Pulse Ox: 96 Oxygen Delivery Method: Nasal Cannula Oxygen Flow Rate (L/min): 2 Assessment Airway patent: Yes Spontaneous unlabored respirations: Yes Mental status: Awake and Calm nausea: No Vomiting: No Anesthesia Complication: No Fluid Hydration Crystalloid volume administer (ml): 1,000 Total IV fluid infused: 1,000 Progress Note Anesthesia document: Postop Eval 1 completed: Yes
--- NOTE | 2025-04-13 11:59 | POSTOPAN2_ITS ---
Anesthesia Postop Eval I Sum Postop Eval Completion status Anesthesia document: Postop Eval 1 completed: Yes Anesthesia Postop Eval I Summary Anesthesia Postop Eval I Summary: Anesthesia Postop Eval I: Assessment Summary Airway patent Yes 04/13/25 09:15 TEST ENGINEERING [email or web address] Spontaneous unlabored Yes 04/13/25 09:15 TEST ENGINEERING [email or web address] respirations Mental status Awake,Calm 04/13/25 09:15 TEST ENGINEERING [email or web address] nausea No 04/13/25 09:15 TEST ENGINEERING [email or web address] Vomiting No 04/13/25 09:15 TEST ENGINEERING [email or web address] Anesthesia Postop Eval I: Fluid Summary Crystalloid volume administer 1,000 04/13/25 09:15 TEST ENGINEERING [email or web address] (ml) Colloids volume administered ( ml) Blood Product volume administered (ml) Total IV fluid infused 1,000 04/13/25 09:15 TEST ENGINEERING [email or web address] Anesthesia Postop Eval I: Summary Notes Anesthesia Complication No 04/13/25 09:15 TEST ENGINEERING [email or web address] Anesthesia Complication Comment: Post-operative progress note Anesthesia: Postop Eval II Evaluation Mental status: Awake and Calm Pain Level: 0 nausea: No Vomiting: No Complications Anesthesia Complication: No
--- NOTE | 2025-04-13 11:59 | PCM.POSTANE2 ---
Anesthesia Postop Eval I Sum Postop Eval Completion status Anesthesia document: Postop Eval 1 completed: Yes Anesthesia Postop Eval I Summary Anesthesia Postop Eval I Summary: Anesthesia Postop Eval I: Assessment Summary Airway patent Yes 04/13/25 09:15 PROFESSIONAL APPLICATION [email or web address] Spontaneous unlabored Yes 04/13/25 09:15 PROFESSIONAL APPLICATION [email or web address] respirations Mental status Awake,Calm 04/13/25 09:15 PROFESSIONAL APPLICATION [email or web address] nausea No 04/13/25 09:15 PROFESSIONAL APPLICATION [email or web address] Vomiting No 04/13/25 09:15 PROFESSIONAL APPLICATION [email or web address] Anesthesia Postop Eval I: Fluid Summary Crystalloid volume administer 1,000 04/13/25 09:15 PROFESSIONAL APPLICATION [email or web address].[email or web address] (ml) Colloids volume administered ( ml) Blood Product volume administered (ml) Total IV fluid infused 1,000 04/13/25 09:15 PROFESSIONAL APPLICATION DESIGNER.[email or web address] Anesthesia Postop Eval I: Summary Notes Anesthesia Complication No 04/13/25 09:15 PROFESSIONAL APPLICATION [email or web address].[email or web address] Anesthesia Complication Comment: Post-operative progress note Anesthesia: Postop Eval II Evaluation Mental status: Awake and Calm Pain Level: 0 nausea: No Vomiting: No Complications Anesthesia Complication: No
== END 2025-04-13 11:11 | disposition home or self-care (01) ==
LOC: SDC 05:31 → AC 05:57
PROVIDERS: Referring Provider Surgery; Visit Provider Surgery
PROC: (CPT 49505; principal; 2025-04-13 07:15)
DX: K40.90 Unilateral inguinal hernia, without obstruction or gangrene, not specified as recurrent (principal)
CPT/HCPCS: 49505; 00830; 88302; 93005; C1781; J2405

== ENCOUNTER 2025-05-30 08:36 | Outpatient (CLI) | payer MEDICARE, SELFPAY ==
[2025-05-30 09:33] LABS: Hematocrit 42.6 % (37-47); Hemoglobin 14.2 g/dL (12.0-15.0); Immature Granulocytes Count 0.000 X10^3/uL (0.0-0.0); Mean Corp Hgb Conc 33.3 g/dL (32-36); Mean Corpuscular Volume 91.8 fL (81-99); Mean Platelet Vol. 10.7 fl (6.2-12.0); NRBC Flagged by Analyzer 0 % (0-5); Platelet Count 238 K/mm3 (150-450); RBC Distribution Width CV 14.0 % (11.6-14.6); RBC Distribution Width SD 46.5 fl (35.1-43.9); Red Blood Count 4.64 M/mm3 (4.2-5.4); White Blood Count 5.9 K/mm3 (4.4-11.0)
[2025-05-30 10:40] LABS: AST(SGOT) 26 U/L (<=31); Alanine Aminotransfer ALT/SGPT 21 U/L (<=34); Albumin, Serum 4.6 g/dL (3.4-4.8); Alkaline Phosphatase 78 U/L (35-104); Anion Gap 10 (5-15); BUN 18 mg/dL (4-19); BUN/Creat Ratio 21.2 RATIO (10-20); Calcium,Total 10.2 mg/dL (7.6-11.0); Carbon Dioxide 26.4 mmol/L (21.0-32.0); Chloride 105 mmol/L (98-108); Globulin 2.9 g/dL (2.2-4.2); Glucose 83 mg/dL (70-99); Potassium 5.1 mmol/L (3.3-5.1)
== END 2025-05-30 23:59 | disposition home or self-care (01) ==
LOC: LAB 08:38
PROVIDERS: Referring Provider Internal Medicine Rheumatology; Visit Provider Internal Medicine Rheumatology
DX: M06.4 Inflammatory polyarthropathy (principal); Z79.899 Other long term (current) drug therapy
CPT/HCPCS: 36415; 80053; 85025